=== PATIENT | female | born 1960 | race Caucasian/White ===

== ENCOUNTER 2017-09-11 15:47 | Emergency (ER) | payer BC, OTHER ==
[2017-09-11 16:02] VITALS: BMI 32.0
[2017-09-11 16:41] LABS: BILIRUBIN,URINE NEGATIVE (NEGATIVE); BLOOD/HEMOGLOBIN,URINE 3+ (NEGATIVE); GLUCOSE, URINE NEGATIVE (NEGATIVE); KETONES,URINE NEGATIVE (NEGATIVE); LEUKOCYTE ESTERASE ,URINE 1+ (NEGATIVE); NITRITES,URINE NEGATIVE (NEGATIVE); PROTEIN,URINE 1+ (NEGATIVE); UROBILINOGEN,URINE NORMAL (NORMAL)
[2017-09-11 16:45] LABS: APPEARANCE,URINE CLEAR (CLEAR); COLOR,URINE YELLOW (YELLOW)
--- NOTE | 2017-09-11 16:48 | DR.GENAD ---
HPI - PCP Primary Care Physician: Dr. Briones - Complaint/Symptoms Chief Complaint Doctors Comments: She was seen by PCP like 2 days ago and started on Cipro for possible diverticulitis. Chief Complaint:: About a week ago pt had sudden onset of severe abdomianl pain described as sharp stabbing into left lower quadrant. Pt was started on Linzess and thought problem was related to this. Since then she hasn't been able to eat or drink like normal. Pt also c/o nausea and vomiting and has had 2 very loose stools this morning. Self Treatment fo Chief Complaint: Was given Rx. for Cipro and Zofran on Tuesday with no relief - Nurses notes reviewed Nurses Notes Review: Yes - Source History Provided: Patient - Mode of Arrival Mode of Arrival: Ambulatory - Timing Onset of Chief Complaint: 09/04/17 PMH - PMH Past Medical History: Yes Past Medical History: Anxiety Past Medical History Comment: Diverticulitis. Hypothyroidism. low platelets Past Surgical History: Yes Surgical History: Hysterectomy Past Surgical History Comment: Bladder Tack with mesh. right shoulder surgery. right carpal tunnel. neck surgery. back surgery - Family History History of Family Medical Conditions: Yes Family Medical History: Diabetes Mellitus, Cancer, Coronary Artery Disease, Hypertension Family Medical History Comment: AAA -dad - Social History Does patient currently use any type of tobacco product: No Have you used tobacco products in the last 12 months: No Type of Tobacco Use: None Does any household member use tobacco: No Alcohol Use: Rarely Do you use any recreational Drugs:: No Lives With: Spouse Lives Where: Home - infectious screening In the last 2 months have you had wt loss of >10#?: NO Have you had fever, night sweats or hemotysis?: No Have you traveled outside the country in the last 6 months?: No Isolation: Standard ROS - Review of Systems Constitutional: No Symptoms Reported Eyes: No Symptoms Reported ENTM: No Symptoms Reported Respiratoy: No Symptoms Reported Cardiovascular: No Symptoms Reported Gastrointestinal/Abdominal: Abdominal Pain, Nausea Genitourinary: No Symptoms Reported Neurological: No Symptoms Reported Musculoskeletal: No Symptoms Reported Integumentary: No Symptoms Reported Hematologic/Lymphatic: No Symptoms Reported Endocrine: No Symptoms Reported Psychiatric: No Symptoms Reported All Other Systems: Reviewed and Negative PE - Vital Signs Vitals: Temperature 99.6 F Pulse Rate 87 Respiratory Rate 18 Blood Pressure 98/54 O2 Sat by Pulse Oximetry 98 - General Limitations: No Limitations General Appearance: Alert, In No Apparent Distress - Head Head Exam: Normal Inspection - Eyes Eye exam: Normal Appearance - ENT ENT Exam: Normal Exam - Neck Neck Exam: Normal Inspection, Full ROM, Trachea Midline - Chest Chest Inspection: Normal Inspection, Symmetric Chest Wall Rise - Respiratory Respiratory Exam: Normal Lung Sounds Bilat - Cardiovascular Cardiovascular Exam: Regular Rate, Normal Rhythm, Normal Heart Sounds, +S1, +S2 - Abdominal Exam Abdominal Exam: Normal Inspection, Normal Bowel Sounds, Soft, Tenderness. negative: Distention, Guarding, Rebound, Rigidity, Dimnished Bowel Sounds, Hyperactive Bowel Sounds, Hypoactive Bowel Sounds, Organomegaly, Trauma, Incision, Ascites, Mass, Bruit, Pulsatile Mass, Hernia Abdominal Tenderness: LLQ - Extremities Extremities Exam: Normal Inspection, Full ROM - Back Back Exam: Normal Inspection Course - Reevaluation 1st: Improved - Education/Counseling Education/Counseling: Patient, Family, Education, Counseling Educated On: Treatment, Diagnosis, Prognosis, Needs for Follow Up ROR - Labs Reviewed Result Diagrams: 09/11/17 16:35 09/11/17 16:35 Laboratory: WBC 9.4 X10^3/uL (3.6-10.0) 09/11/17 16:35 RBC 4.24 X10^6/uL (3.5-5.4) 09/11/17 16:35 Hgb 12.6 g/dL (12.0-16.0) 09/11/17 16:35 Hct 36.6 % (36.0-47.0) 09/11/17 16:35 MCV 86.3 fL (80.0-100.0) 09/11/17 16:35 MCH 29.7 pg (27.0-34.0) 09/11/17 16:35 MCHC 34.4 g/dL (33.0-35.0) 09/11/17 16:35 RDW 12.4 % (11.6-16.5) 09/11/17 16:35 Plt Count 149 X10^3/uL (150.0-450.0) L 09/11/17 16:35 MPV 10.7 fL (7.4-11.0) 09/11/17 16:35 Neut % (Auto) 78.1 % (42.0-75.0) H 09/11/17 16:35 Lymph % (Auto) 11.0 % (21.0-51.0) L 09/11/17 16:35 [place] % (Auto) 10.3 % (0.0-13.0) 09/11/17 16:35 Eos % (Auto) 0.2 % (0.9-2.9) L 09/11/17 16:35 Baso % (Auto) 0.4 % (0.2-1.0) 09/11/17 16:35 Neut # (Auto) 7.3 x10^3/uL (2.2-4.8) H 09/11/17 16:35 Lymph # (Auto) 1.0 X10^3/uL (1.3-2.9) L 09/11/17 16:35 [place] # (Auto) 1.0 x10^3/uL (0.3-0.8) H 09/11/17 16:35 Eos # (Auto) 0.0 x10^3/uL (0.0-0.2) 09/11/17 16:35 Baso # (Auto) 0.0 X10^3/uL (0.0-0.1) 09/11/17 16:35 Absolute Nucleated RBC 0.0 /100WBC 09/11/17 16:35 Sodium 135 mmol/L (136-145) L 09/11/17 16:35 Corrected Sodium TNP 09/11/17 16:35 Potassium 3.7 mmol/L (3.5-5.1) 09/11/17 16:35 Chloride 99 mmol/L (98-107) 09/11/17 16:35 Carbon Dioxide 28.4 mmol/L (21-32) 09/11/17 16:35 BUN 19 mg/dL (7-18) H 09/11/17 16:35 Creatinine 1.94 mg/dL (0.55-1.02) H 09/11/17 16:35 Est GFR (MDRD) Af Amer 34 (>60) L 09/11/17 16:35 Est GFR (MDRD) Non-Af 28 (>60) L 09/11/17 16:35 Glucose 92 mg/dL (65-99) 09/11/17 16:35 Calcium 9.9 mg/dL (8.5-10.1) 09/11/17 16:35 Corrected Calcium TNP 09/11/17 16:35 Total Bilirubin 0.60 mg/dL (0.2-1.0) 09/11/17 16:35 AST 67 Units/L (15-37) H 09/11/17 16:35 ALT 72 Units/L (12-78) 09/11/17 16:35 Alkaline Phosphatase 183 Units/L (46-116) H 09/11/17 16:35 Total Protein 8.2 g/dL (6.4-8.2) 09/11/17 16:35 Albumin 3.5 g/dL (3.4-5.0) 09/11/17 16:35 Globulin 4.7 g/dL (2.5-4.5) H 09/11/17 16:35 Albumin/Globulin Ratio 0.7 Ratio (1.1-2.1) L 09/11/17 16:35 Specimen Type Random urine 09/11/17 16:22 Urine Color Yellow (YELLOW) 09/11/17 16:22 Urine Appearance Clear (CLEAR) 09/11/17 16:22 Urine pH 5.0 (5.0 - 8.0) 09/11/17 16:22 Ur Specific [place] 1.015 (1.000-1.030) 09/11/17 16:22 Urine Protein 1+ (NEGATIVE) 09/11/17 16:22 Urine Glucose (UA) Negative (NEGATIVE) 09/11/17 16:22 Urine Ketones Negative (NEGATIVE) 09/11/17 16:22 Urine Occult Blood 3+ (NEGATIVE) 09/11/17 16:22 Urine Nitrite Negative (NEGATIVE) 09/11/17 16:22 Urine Bilirubin Negative (NEGATIVE) 09/11/17 16:22 Urine Urobilinogen Normal (NORMAL) 09/11/17 16:22 Ur Leukocyte Esterase 1+ (NEGATIVE) 09/11/17 16:22 Urine RBC 0-2 /HPF (NONE SEEN) 09/11/17 16:22 Urine WBC 0-2 /HPF (NONE SEEN) 09/11/17 16:22 Ur Squamous Epith Cells Few /HPF (NEGATIVE) 09/11/17 16:22 Amorphous Sediment Trace /HPF (NEGATIVE) 09/11/17 16:22 Urine Bacteria Trace /HPF (NEGATIVE) 09/11/17 16:22 Ur Culture Indicated? No/not indicated 09/11/17 16:22 - XRAY XRAY Interpreted by: Radiologist (diverticulitis without perforation at the descending colon and sigmoid junction) - Diagnosis Discharge Problem: Diverticulitis - Discharge Plan Disposition: 01 HOME, SELF-CARE Condition: Stable - Follow ups/Referrals Follow ups/Referrals: Alcides Briones [Primary Care Provider] - 3 days - Instructions Instructions: Diverticulitis
--- NOTE | 2017-09-11 16:54 | CT ---
HISTORY: Left lower quadrant abdominal pain Study: CT abdomen and pelvis without IV or oral contrast Comparison: No priors Technique: Multiple axial images of the abdomen and pelvis were obtained from the lung bases to the pubic symphy sis without the administration of IV or oral contrast. Coronal and sagittal images are also reviewed . Findings: The visualized portions of the lung bases are unremarkable. The liver, spleen, pancreas, left kidney and adrenal glands are unremarkable in their CT appearance. The gallbladder is unremarkable in its C T appearance. A 4.6 cm simple cyst is seen involving the posterior aspect of the right mid kidney reg ion. No solid mass, stone or hydronephrosis is seen involving either kidney. No significant mesenteri c lymphadenopathy is observed. No free fluid or free air is seen within the abdomen. . There is wa ll thickening and pericolonic fat reticulation in an area of diverticulosis involving the distal desc ending and proximal sigmoid colon regions. Findings have the appearance of active, on perforated dive rticulitis. No bowel obstruction is seen.. The urinary bladder is grossly unremarkable. Uterus and ov trudy are surgically absent. The bony structures are grossly intact. IMPRESSION: Active but on perforated diverticulitis at the junction of the descending and proximal sigmoid colon regions. No fluid or abscess is seen. Simple cyst of the midpole region of the right kidney dorsally. Reported By:
[2017-09-11 16:59] LABS: AMORPHOUS SEDIMENT,UR TRACE /HPF (NEGATIVE); BACTERIA,URINE TRACE /HPF (NEGATIVE); RBC,URINE 0-2 /HPF (NONE SEEN); SQUAMOUS EPITHELIAL CELL,UR FEW /HPF (NEGATIVE)
[2017-09-11 17:04] LABS: BASOPHILS % (AUTO) 0.4 % (0.2-1.0); EOSINOPHILS % (AUTO) 0.2 % (0.9-2.9); HEMATOCRIT 36.6 % (36.0-47.0); HEMOGLOBIN 12.6 g/dL (12.0-16.0); MEAN CORPUSCULAR HEMOGLOBIN 29.7 pg (27.0-34.0); MEAN CORPUSCULAR HGB CONC 34.4 g/dL (33.0-35.0); MEAN CORPUSCULAR VOLUME 86.3 fL (80.0-100.0); MEAN PLATELET VOLUME 10.7 fL (7.4-11.0); MONOCYTES % (AUTO) 10.3 % (0.0-13.0); NEUTROPHILS # (AUTO) 7.3 x10^3/uL (2.2-4.8); NEUTROPHILS % (AUTO) 78.1 % (42.0-75.0); PLATELET COUNT 149 X10^3/uL (150.0-450.0); RED BLOOD COUNT 4.24 X10^6/uL (3.5-5.4); RED CELL DISTRIBUTION WIDTH 12.4 % (11.6-16.5); WHITE BLOOD COUNT 9.4 X10^3/uL (3.6-10.0)
[2017-09-11 17:16] LABS: ALANINE AMINOTRANSFERASE 72 Units/L (12-78); ALBUMIN 3.5 g/dL (3.4-5.0); ALKALINE PHOSPHATASE 183 Units/L (46-116); ASPARTATE AMINO TRANSFERASE 67 Units/L (15-37); BLOOD UREA NITROGEN 19 mg/dL (7-18); CALCIUM 9.9 mg/dL (8.5-10.1); CARBON DIOXIDE 28.4 mmol/L (21-32); CHLORIDE 99 mmol/L (98-107); CREATININE 1.94 mg/dL (0.55-1.02); SODIUM 135 mmol/L (136-145); TOTAL PROTEIN 8.2 g/dL (6.4-8.2); eGFR BLACK RACES 34 (>60); eGFR NON BLACK RACES 28 (>60)
[2017-09-11] MEDS ORDERED: CLEOCIN 600 MG IV PREMIX 600 MG/50 ML BAG IV ONE (17:35)
[2017-09-11] MEDS ORDERED: DEMEROL INJ IVP ONE (17:36)
[2017-09-11] MEDS ORDERED: FLAGYL TAB 500 MG PO ONE (17:36)
[2017-09-11] MEDS ORDERED: PHENERGAN TAB 25 MG PO ONE (17:37)
[2017-09-11] MEDS ORDERED: CLEOCIN VIAL 600 MG ONE (17:43)
[2017-09-11] MEDS ORDERED: FLAGYL TAB 250 MG PO ONE (17:43)
[2017-09-11] MEDS ORDERED: DEMEROL INJ ONE (17:44)
[2017-09-11] MEDS ORDERED: NS 100 ML IV 100 ML IV ONE (17:44)
[2017-09-11] MEDS ORDERED: PHENERGAN INJ 25 MG ONE (17:47)
[2017-09-11 19:04] VITALS: BP 101/62
== END 2017-09-11 19:04 | disposition home or self-care (01) ==
LOC: ER 16:07
DX: K57.92 Diverticulitis of intestine, part unspecified, without perforation or abscess without bleeding (principal); N28.1 Cyst of kidney, acquired; R10.32 Left lower quadrant pain
CPT/HCPCS: 36415; 74176; 80053; 81001; 85025; 96365; 96374; 96375; 99283; A4222; J2175; J2550; S0077

== ENCOUNTER 2017-09-17 10:03 | Inpatient (IN) | payer BC, OTHER ==
[2017-09-17] MEDS: NS 1000 ML 1,000 ML IV SCH ×2 (10:39→20:13)
[2017-09-17] MEDS ORDERED: CIPRO IV 400 MG PREMIX* 400 MG/200 ML IV.SOLN. IV SCH (11:00)
[2017-09-17 11:01] LABS: BASOPHILS # (AUTO) 0.1 X10^3/uL (0.0-0.1); BASOPHILS % (AUTO) 0.6 % (0.2-1.0); EOSINOPHILS % (AUTO) 0.1 % (0.9-2.9); HEMATOCRIT 34.7 % (36.0-47.0); HEMOGLOBIN 11.7 g/dL (12.0-16.0); LYMPHOCYTES # (AUTO) 0.8 X10^3/uL (1.3-2.9); LYMPHOCYTES % (AUTO) 7.1 % (21.0-51.0); MEAN CORPUSCULAR HGB CONC 33.7 g/dL (33.0-35.0); MEAN CORPUSCULAR VOLUME 85.9 fL (80.0-100.0); MEAN PLATELET VOLUME 10.1 fL (7.4-11.0); MONOCYTES # (AUTO) 0.8 x10^3/uL (0.3-0.8); MONOCYTES % (AUTO) 6.8 % (0.0-13.0); NEUTROPHILS % (AUTO) 85.4 % (42.0-75.0); PLATELET COUNT 194 X10^3/uL (150.0-450.0); RED BLOOD COUNT 4.04 X10^6/uL (3.5-5.4); RED CELL DISTRIBUTION WIDTH 12.7 % (11.6-16.5); WHITE BLOOD COUNT 11.7 X10^3/uL (3.6-10.0)
[2017-09-17 11:07] LABS: ALBUMIN 3.3 g/dL (3.4-5.0); CALCIUM 9.4 mg/dL (8.5-10.1); CARBON DIOXIDE 29.1 mmol/L (21-32); CREATININE 1.47 mg/dL (0.55-1.02); TOTAL PROTEIN 7.4 g/dL (6.4-8.2)
[2017-09-17] MEDS: ZOFRAN INJ 4 MG VIAL IVP PRN (11:41)
[2017-09-17] MEDS: TORADOL 30 MG VIAL IVP PRN ×2 (11:41→18:50)
[2017-09-17] MEDS ORDERED: PHENERGAN INJ 25 MG IM ONE (14:26)
[2017-09-17] MEDS: FLAGYL IV PREMIX 500 MG BAG 500 MG/100 ML BAG IV SCH ×2 (14:34→20:22)
[2017-09-17 15:34] VITALS: BMI 32.0
[2017-09-17 16:23] LABS: BILIRUBIN,URINE NEGATIVE (NEGATIVE); BLOOD/HEMOGLOBIN,URINE 2+ (NEGATIVE); GLUCOSE, URINE NEGATIVE (NEGATIVE); KETONES,URINE NEGATIVE (NEGATIVE); LEUKOCYTE ESTERASE ,URINE 2+ (NEGATIVE); NITRITES,URINE NEGATIVE (NEGATIVE); PROTEIN,URINE 1+ (NEGATIVE); UROBILINOGEN,URINE NORMAL (NORMAL)
[2017-09-17 16:28] LABS: APPEARANCE,URINE CLEAR (CLEAR); COLOR,URINE YELLOW (YELLOW)
[2017-09-17 16:29] LABS: BACTERIA,URINE TRACE /HPF (NEGATIVE); SQUAMOUS EPITHELIAL CELL,UR FEW /HPF (NEGATIVE)
[2017-09-17] MEDS ORDERED: XANAX PO ONE (21:02)
[2017-09-17] MEDS: ZANAFLEX PO SCH (21:23)
[2017-09-17] MEDS: ZOSYN VIAL 3.375 GM 3.375 GM in NS 100 ML IV + SPIKE MINIBAG* 100 ML IV SCH (22:00)
[2017-09-18] MEDS: PRAVACHOL PO SCH ×2 (03:18→21:02)
[2017-09-18] MEDS: XANAX PO SCH ×4 (03:19→21:01)
[2017-09-18] MEDS: FLAGYL IV PREMIX 500 MG BAG 500 MG/100 ML BAG IV SCH ×4 (03:20→21:02)
[2017-09-18] MEDS: NS 1000 ML 1,000 ML IV SCH ×3 (03:20→20:59)
[2017-09-18] MEDS: ZOSYN VIAL 3.375 GM 3.375 GM in NS 100 ML IV + SPIKE MINIBAG* 100 ML IV SCH ×4 (03:21→21:00)
[2017-09-18] MEDS: SYNTHROID 88 mcg TAB PO SCH (05:23)
[2017-09-18 07:31] LABS: BASOPHILS % (AUTO) 0.4 % (0.2-1.0); EOSINOPHILS % (AUTO) 0.2 % (0.9-2.9); HEMATOCRIT 30.9 % (36.0-47.0); HEMOGLOBIN 10.5 g/dL (12.0-16.0); LYMPHOCYTES # (AUTO) 1.1 X10^3/uL (1.3-2.9); LYMPHOCYTES % (AUTO) 10.5 % (21.0-51.0); MEAN CORPUSCULAR HEMOGLOBIN 29.3 pg (27.0-34.0); MEAN CORPUSCULAR VOLUME 86.1 fL (80.0-100.0); MEAN PLATELET VOLUME 10.3 fL (7.4-11.0); NEUTROPHILS % (AUTO) 78.9 % (42.0-75.0); PLATELET COUNT 183 X10^3/uL (150.0-450.0); RED BLOOD COUNT 3.59 X10^6/uL (3.5-5.4); RED CELL DISTRIBUTION WIDTH 12.8 % (11.6-16.5); WHITE BLOOD COUNT 10.2 X10^3/uL (3.6-10.0)
[2017-09-18 07:50] LABS: ALANINE AMINOTRANSFERASE 23 Units/L (12-78); ALBUMIN 2.6 g/dL (3.4-5.0); ALKALINE PHOSPHATASE 112 Units/L (46-116); ASPARTATE AMINO TRANSFERASE 10 Units/L (15-37); BLOOD UREA NITROGEN 12 mg/dL (7-18); CALCIUM 8.7 mg/dL (8.5-10.1); CARBON DIOXIDE 28.6 mmol/L (21-32); CHLORIDE 107 mmol/L (98-107); COR CA(FOR HYPOALB) 9.8 mg/dL (8.5-10.1); CREATININE 1.53 mg/dL (0.55-1.02); SODIUM 143 mmol/L (136-145); TOTAL PROTEIN 6.4 g/dL (6.4-8.2); eGFR BLACK RACES 45 (>60); eGFR NON BLACK RACES 37 (>60)
[2017-09-18] MEDS ORDERED: PYRIDIUM PO ONE ×2 (09:17→13:25)
[2017-09-18] MEDS: CELEXA PO SCH (09:19)
[2017-09-18] MEDS: PYRIDIUM PO SCH ×3 (09:19→16:06)
[2017-09-18] MEDS: TYLENOL 325 MG TAB PO PRN (09:32)
[2017-09-18] MEDS: TORADOL 30 MG VIAL IVP PRN (13:46)
[2017-09-18] MEDS: ZOFRAN INJ 4 MG VIAL IVP PRN (19:18)
[2017-09-18] MEDS: ZANAFLEX PO SCH (21:01)
[2017-09-19] MEDS: FLAGYL IV PREMIX 500 MG BAG 500 MG/100 ML BAG IV SCH ×4 (02:55→21:42)
[2017-09-19] MEDS: ZOSYN VIAL 3.375 GM 3.375 GM in NS 100 ML IV + SPIKE MINIBAG* 100 ML IV SCH ×3 (03:46→21:41)
[2017-09-19] MEDS: SYNTHROID 88 mcg TAB PO SCH (05:33)
[2017-09-19] MEDS: XANAX PO SCH ×4 (05:34→21:42)
[2017-09-19] MEDS: NS 1000 ML 1,000 ML IV SCH ×4 (05:34→21:40)
[2017-09-19 06:17] LABS: ALANINE AMINOTRANSFERASE 20 Units/L (12-78); ALBUMIN 2.5 g/dL (3.4-5.0); ALKALINE PHOSPHATASE 121 Units/L (46-116); ASPARTATE AMINO TRANSFERASE 10 Units/L (15-37); BLOOD UREA NITROGEN 11 mg/dL (7-18); CALCIUM 8.6 mg/dL (8.5-10.1); CARBON DIOXIDE 26.6 mmol/L (21-32); CHLORIDE 109 mmol/L (98-107); COR CA(FOR HYPOALB) 9.8 mg/dL (8.5-10.1); CREATININE 1.39 mg/dL (0.55-1.02); SODIUM 142 mmol/L (136-145); TOTAL PROTEIN 6.2 g/dL (6.4-8.2); eGFR BLACK RACES 50 (>60); eGFR NON BLACK RACES 41 (>60)
[2017-09-19] MEDS: PYRIDIUM PO SCH ×4 (06:18→17:22)
[2017-09-19 06:25] LABS: BASOPHILS % (AUTO) 0.3 % (0.2-1.0); EOSINOPHILS % (AUTO) 0.5 % (0.9-2.9); HEMATOCRIT 29.7 % (36.0-47.0); HEMOGLOBIN 10.3 g/dL (12.0-16.0); LYMPHOCYTES # (AUTO) 1.2 X10^3/uL (1.3-2.9); LYMPHOCYTES % (AUTO) 13.8 % (21.0-51.0); MEAN CORPUSCULAR HEMOGLOBIN 29.7 pg (27.0-34.0); MEAN CORPUSCULAR HGB CONC 34.6 g/dL (33.0-35.0); MEAN CORPUSCULAR VOLUME 85.9 fL (80.0-100.0); MEAN PLATELET VOLUME 10.8 fL (7.4-11.0); MONOCYTES # (AUTO) 0.7 x10^3/uL (0.3-0.8); MONOCYTES % (AUTO) 8.5 % (0.0-13.0); NEUTROPHILS # (AUTO) 6.5 x10^3/uL (2.2-4.8); NEUTROPHILS % (AUTO) 76.9 % (42.0-75.0); PLATELET COUNT 170 X10^3/uL (150.0-450.0); RED BLOOD COUNT 3.46 X10^6/uL (3.5-5.4); RED CELL DISTRIBUTION WIDTH 12.7 % (11.6-16.5); WHITE BLOOD COUNT 8.5 X10^3/uL (3.6-10.0)
[2017-09-19] MEDS: CELEXA PO SCH (08:33)
[2017-09-19] MEDS: PEPCID 20 MG IV PREMIX* 20 MG/50 ML BAG IV SCH ×2 (11:27→21:40)
[2017-09-19] MEDS: PROTONIX INJ 40 MG VIAL IVP SCH ×2 (11:28→21:40)
--- NOTE | 2017-09-19 12:44 | DR.H&P ---
H&P - History & Physical for Day of: H&P Date: 09/17/17 - Chief Complaint Chief Complaint: abdominal pain - Allergies Allergies/Adverse Reactions: Allergies Allergy/AdvReac Type Severity Reaction Status Date / Time ciprofloxacin [From Cipro] Allergy Verified 09/17/17 13:23 codeine Allergy Verified 09/17/17 11:45 hydromorphone [From Dilaudid] Allergy Verified 09/17/17 11:45 morphine Allergy Verified 09/17/17 11:45 - History of Present Illness History of Present Illness: is a 57 year old patient of ours who is a direct admit for complaints of abdominal pain, nausea, and diarrhea. Patient describes pain as a stabbing feeling in her left lower quadrant. She reports that symptoms began one week ago. She was seen in our office one week ago and was prescribed Cipro and Linzess. Patient states she had no improvement and went to the ER on Tuesday (09/11/17). There was an abdomen and pelvis CT done revealed: Active but unperforated diverticulitis at the junction of the descending and proximal sigmoid colon regions. No fluid or abscess is seen. Simple cyst of the midpole region of the right kidney dorsally. She reports receiving a prescription for an antibiotic and pain medicine. Patient reports associated nausea. She rates her abdomen pain at an 8 on a pain scale of 0-10 with 10 being the worse pain. On arrival, vitals were 100.4, 79, 20, 99% RA, 114 /64. Labs were obrtained. Abnormal labs include: WBC 11.7, HGB 11.7, HCT 34.7, Creatinine 1.47, GFR (AA) 47, GFR (NON) 39, Glucose 111, Alkaline Phosphatase 137, Albumin 3.3, A/G ratio 0.8. Urinalysis obtained and revelaed: Protein 1+, Occult Blood 2+, Leukocyte Esterase 2+, RBC 10-20, WBC 0-2, Squamous Epith Cells Few, Bacteria Trace. We are unable to obtain a repeat abdomen/pelvis CT with contrast for comparison due to the patients renal function at this time. Patient will be given Zosyn 3.375 MG IV Q6H and Flagyl 500 MG IV Q6H for antibiotic therapy. The patient has Toradol 30 MG IVP Q6H PRN for pain. NS 1000 ML @ 125 MLS/HR IV will be given for aggressive IV hydration. We will follow up with AM labs and continue to monitor patient. - Past Medical History Past Medical History: Anxiety - Past Surgical History Surgical History: Hysterectomy, Ortho Surgery - Family History Family Medical History: Diabetes Mellitus, Cancer, Coronary Artery Disease, Hypertension - Social History Alcohol Use: Occasionally Drug Use: None - Medications Home Medications: Alprazolam [Alprazolam] 1 tab PO TID 09/17/17 [History Confirmed 09/17/17] Citalopram Hydrobromide [Celexa] 1.5 tab PO DAILY 09/17/17 [History Confirmed ] Levothyroxine Sodium [SYNTHROID 88 mcg *] 1 tab PO DAILY 09/17/17 [History Confirmed 09/17/17] Polyethylene Glycol 3350 [Miralax] 2 cap PO DAILY 09/17/17 [History Confirmed ] Pravastatin Sodium [Pravachol] 1 tab PO HS 09/17/17 [History Confirmed 09/17/17] Tizanidine HCl [Zanaflex 4 mg] 4 mg PO HS 09/17/17 [History Confirmed 09/17/17] - Review of Systems Constitutional: Fever, Weakness Eyes: No Symptoms Reported ENT: No Symptoms Reported Respiratory: No Symptoms Reported Cardiovascular: No Symptoms Reported Gastrointestinal: Nausea, Vomiting, Abdominal Pain, Diarrhea Genitourinary: No Symptoms Reported Musculoskeletal: No Symptoms Reported Skin: No Symptoms Reported Neurological: Weakness - Physical Exam Vital Signs: Temperature 97.9 F Pulse Rate [Left Brachial] 66 Respiratory Rate 18 Blood Pressure [Left Arm] 97/51 Blood Pressure [Left Arm] 105/58 Blood Pressure 101/62 O2 Sat by Pulse Oximetry 96 Oriented: Normal Eyes: Normal Ear: Normal Nose: Normal Throat: Normal Respiratory: Clear Throughout Cardiovascular: Normal : Normal Auscultation: Bowel Sounds: Increased Palpation: Normal Tenderness: LLQ, Moderate. negative: Rebound, Guarding, Rigidity Skin: Normal Musculoskeletal: Normal Psychiatric: Normal Mood Description: Calm Affect: Normal Speech Pattern: Clear - Assessment/Plan (1) Diverticulitis Status: Acute Plan: admit, iv fluids, cipro iv, flagyl iv, toradol iv prn pain, zofran iv prn nausea, continue to monitor
--- NOTE | 2017-09-19 20:01 | PCM.PROG ---
Progress Note - Progress Note for Day of Date: 09/18/17 - Subjective Subjective: WAS ADMITTED FOR ACUTE DIVERTICULITIS. TODAY, SHE IS ALERT AND ORIENTED, LYING IN BED ON MORNING ROUNDS. SHE CONTINUES WITH COMPLAINTS OF LLQ PAIN AND NAUSEA. HER VITALS THIS MORNING ARE 98.8-60-18-96%-96 /52. SHE HAS BEEN AFEBRILE THROUGHOUT THE NIGHT. LABS WERE OBTAINED. ABNORMAL LAB VALUES INCLUDE THE FOLLOWING: WBC 10.2, HGB 10.5, HCT 30.9, CREATININE 1.53 , GLUCOSE 103, AST 10, ALBUMIN 2.6. SHE CONTINUES ON IV ANTIBIOTICS, PAIN MEDICATION, AND NAUSEA MEDICATION. WE WILL CONTINUE WITH CURRENT PLAN OF CARE AND RESUME HOME MEDICATIONS TODAY. OTHERWISE, WE WILL FOLLOW UP WITH AM LABS AND CONTINUE TO MONITOR PATIENT. - Past Medical Family Social History Past Med/Fam/Surg Hx: No changes since H&P Allergies: Allergies ciprofloxacin [From Cipro] Allergy (Verified 09/17/17 13:23) codeine Allergy (Verified 09/17/17 11:45) hydromorphone [From Dilaudid] Allergy (Verified 09/17/17 11:45) morphine Allergy (Verified 09/17/17 11:45) - Review of Systems ROS: No change since H&P - Vital Signs and I&O's Vital Signs: Temperature 99.2 F Pulse Rate [Left Brachial] 74 Respiratory Rate 18 Blood Pressure [Left Arm] 112/59 Blood Pressure [Left Arm] 105/58 Blood Pressure 101/62 O2 Sat by Pulse Oximetry 98 Intake and Output: Intake & Output 09/17/17 09/18/17 09/19/17 09/20/17 11:59 11:59 11:59 11:59 Intake Total 22043 Output Total 4 Balance 2200 1940 1673 - Physical Exam Oriented: Normal Eyes: Normal Ear: Normal Nose: Normal Throat: Normal Respiratory: Normal Cardiovascular: Normal : Normal Auscultation: Bowel Sounds: Increased Palpation: Normal Tenderness: LLQ, Moderate. negative: Rebound, Guarding, Rigidity Skin: Normal Musculoskeletal: Normal Psychiatric: Normal Mood Description: Calm Affect: Normal Speech Pattern: Clear, Appropriate - Laboratory and Diagnostics Result Diagrams: 09/19/17 04:15 09/19/17 04:15 Labs: Laboratory WBC 8.5 X10^3/uL (3.6-10.0) 09/19/17 04:15 RBC 3.46 X10^6/uL (3.5-5.4) L 09/19/17 04:15 Hgb 10.3 g/dL (12.0-16.0) L 09/19/17 04:15 Hct 29.7 % (36.0-47.0) L 09/19/17 04:15 MCV 85.9 fL (80.0-100.0) 09/19/17 04:15 MCH 29.7 pg (27.0-34.0) 09/19/17 04:15 MCHC 34.6 g/dL (33.0-35.0) 09/19/17 04:15 RDW 12.7 % (11.6-16.5) 09/19/17 04:15 Plt Count 170 X10^3/uL (150.0-450.0) 09/19/17 04:15 MPV 10.8 fL (7.4-11.0) 09/19/17 04:15 Neut % (Auto) 76.9 % (42.0-75.0) H 09/19/17 04:15 Lymph % (Auto) 13.8 % (21.0-51.0) L 09/19/17 04:15 [place] % (Auto) 8.5 % (0.0-13.0) 09/19/17 04:15 Eos % (Auto) 0.5 % (0.9-2.9) L 09/19/17 04:15 Baso % (Auto) 0.3 % (0.2-1.0) 09/19/17 04:15 Neut # (Auto) 6.5 x10^3/uL (2.2-4.8) H 09/19/17 04:15 Lymph # (Auto) 1.2 X10^3/uL (1.3-2.9) L 09/19/17 04:15 [place] # (Auto) 0.7 x10^3/uL (0.3-0.8) 09/19/17 04:15 Eos # (Auto) 0.0 x10^3/uL (0.0-0.2) 09/19/17 04:15 Baso # (Auto) 0.0 X10^3/uL (0.0-0.1) 09/19/17 04:15 Absolute Nucleated RBC 0.0 /100WBC 09/19/17 04:15 Sodium 142 mmol/L (136-145) 09/19/17 04:15 Corrected Sodium TNP 09/19/17 04:15 Potassium 4.0 mmol/L (3.5-5.1) 09/19/17 04:15 Chloride 109 mmol/L (98-107) H 09/19/17 04:15 Carbon Dioxide 26.6 mmol/L (21-32) 09/19/17 04:15 BUN 11 mg/dL (7-18) 09/19/17 04:15 Creatinine 1.39 mg/dL (0.55-1.02) H 09/19/17 04:15 Est GFR (MDRD) Af Amer 50 (>60) L 09/19/17 04:15 Est GFR (MDRD) Non-Af 41 (>60) L 09/19/17 04:15 Glucose 85 mg/dL (65-99) 09/19/17 04:15 Calcium 8.6 mg/dL (8.5-10.1) 09/19/17 04:15 Corrected Calcium 9.8 mg/dL (8.5-10.1) 09/19/17 04:15 Total Bilirubin 0.30 mg/dL (0.2-1.0) 09/19/17 04:15 AST 10 Units/L (15-37) L 09/19/17 04:15 ALT 20 Units/L (12-78) 09/19/17 04:15 Alkaline Phosphatase 121 Units/L (46-116) H 09/19/17 04:15 Total Protein 6.2 g/dL (6.4-8.2) L 09/19/17 04:15 Albumin 2.5 g/dL (3.4-5.0) L 09/19/17 04:15 Globulin 3.7 g/dL (2.5-4.5) 09/19/17 04:15 Albumin/Globulin Ratio 0.7 Ratio (1.1-2.1) L 09/19/17 04:15 Specimen Type Random urine 09/17/17 15:07 Urine Color Yellow (YELLOW) 09/17/17 15:07 Urine Appearance Clear (CLEAR) 09/17/17 15:07 Urine pH 6.0 (5.0 - 8.0) 09/17/17 15:07 Ur Specific [place] 1.010 (1.000-1.030) 09/17/17 15:07 Urine Protein 1+ (NEGATIVE) 09/17/17 15:07 Urine Glucose (UA) Negative (NEGATIVE) 09/17/17 15:07 Urine Ketones Negative (NEGATIVE) 09/17/17 15:07 Urine Occult Blood 2+ (NEGATIVE) 09/17/17 15:07 Urine Nitrite Negative (NEGATIVE) 09/17/17 15:07 Urine Bilirubin Negative (NEGATIVE) 09/17/17 15:07 Urine Urobilinogen Normal (NORMAL) 09/17/17 15:07 Ur Leukocyte Esterase 2+ (NEGATIVE) 09/17/17 15:07 Urine RBC 10-20 /HPF (NONE SEEN) 09/17/17 15:07 Urine WBC 0-2 /HPF (NONE SEEN) 09/17/17 15:07 Ur Squamous Epith Cells Few /HPF (NEGATIVE) 09/17/17 15:07 Urine Bacteria Trace /HPF (NEGATIVE) 09/17/17 15:07 Ur Culture Indicated? No/not indicated 09/17/17 15:07 - Plan (1) Diverticulitis Status: Acute Plan: admit, iv fluids, cipro iv, flagyl iv, toradol iv prn pain, zofran iv prn nausea, continue to monitor
[2017-09-19] MEDS: ZANAFLEX PO SCH (21:43)
[2017-09-19] MEDS: PRAVACHOL PO SCH (21:43)
--- NOTE | 2017-09-19 21:43 | PCM.PROG ---
Progress Note - Progress Note for Day of Date: 09/19/17 - Subjective Subjective: WAS ADMITTED FOR ACUTE DIVERTICULITIS. TODAY, SHE IS ALERT AND ORIENTED, LYING IN BED ON MORNING ROUNDS. SHE CONTINUES WITH COMPLAINTS ABDOMINAL PAIN AND NAUSEA. SHE REPORTS THAT PAIN IS DIFFUSE TODAY. HER VITALS THIS MORNING ARE 97.9-66-18-96%-97/51. SHE HAS REMAINED AFEBRILE THROUGHOUT THE NIGHT. LABS WERE OBTAINED. ABNORMAL LAB VALUES INCLUDE THE FOLLOWING: WBC 10.2, HGB 10.5, HCT 30.9, CREATININE 1.53, GLUCOSE 103, AST 10, ALBUMIN 2.6. SHE CONTINUES ON IV ANTIBIOTICS, PAIN MEDICATION, AND NAUSEA MEDICATION. TODAY, WE WILL START PEPCID AND PROTONIX IV BID. OTHERWISE, WE WILL CONTINUE WITH CURRENT PLAN OF CARE. WE WILL FOLLOW UP WITH AM LABS AND CONTINUE TO MONITOR PATIENT. - Past Medical Family Social History Past Med/Fam/Surg Hx: No changes since H&P Allergies: Allergies ciprofloxacin [From Cipro] Allergy (Verified 09/17/17 13:23) codeine Allergy (Verified 09/17/17 11:45) hydromorphone [From Dilaudid] Allergy (Verified 09/17/17 11:45) morphine Allergy (Verified 09/17/17 11:45) - Review of Systems ROS: No change since H&P - Vital Signs and I&O's Vital Signs: Temperature 99.2 F Pulse Rate [Left Brachial] 74 Respiratory Rate 18 Blood Pressure [Left Arm] 112/59 Blood Pressure [Left Arm] 105/58 Blood Pressure 101/62 O2 Sat by Pulse Oximetry 98 Intake and Output: Intake & Output 09/17/17 09/18/17 09/19/17 09/20/17 11:59 11:59 11:59 11:59 Intake Total 22043 Output Total 4 Balance 2200 1940 1672 - Physical Exam Oriented: Normal Eyes: Normal Ear: Normal Nose: Normal Throat: Normal Respiratory: Normal Cardiovascular: Normal : Normal Auscultation: Bowel Sounds: Increased Palpation: Normal Tenderness: Diffuse, Moderate. negative: Rebound, Guarding, Rigidity Skin: Normal Musculoskeletal: Normal Psychiatric: Normal Mood Description: Calm Affect: Normal Speech Pattern: Clear, Appropriate - Laboratory and Diagnostics Result Diagrams: 09/19/17 04:15 09/19/17 04:15 Labs: Laboratory WBC 8.5 X10^3/uL (3.6-10.0) 09/19/17 04:15 RBC 3.46 X10^6/uL (3.5-5.4) L 09/19/17 04:15 Hgb 10.3 g/dL (12.0-16.0) L 09/19/17 04:15 Hct 29.7 % (36.0-47.0) L 09/19/17 04:15 MCV 85.9 fL (80.0-100.0) 09/19/17 04:15 MCH 29.7 pg (27.0-34.0) 09/19/17 04:15 MCHC 34.6 g/dL (33.0-35.0) 09/19/17 04:15 RDW 12.7 % (11.6-16.5) 09/19/17 04:15 Plt Count 170 X10^3/uL (150.0-450.0) 09/19/17 04:15 MPV 10.8 fL (7.4-11.0) 09/19/17 04:15 Neut % (Auto) 76.9 % (42.0-75.0) H 09/19/17 04:15 Lymph % (Auto) 13.8 % (21.0-51.0) L 09/19/17 04:15 [place] % (Auto) 8.5 % (0.0-13.0) 09/19/17 04:15 Eos % (Auto) 0.5 % (0.9-2.9) L 09/19/17 04:15 Baso % (Auto) 0.3 % (0.2-1.0) 09/19/17 04:15 Neut # (Auto) 6.5 x10^3/uL (2.2-4.8) H 09/19/17 04:15 Lymph # (Auto) 1.2 X10^3/uL (1.3-2.9) L 09/19/17 04:15 [place] # (Auto) 0.7 x10^3/uL (0.3-0.8) 09/19/17 04:15 Eos # (Auto) 0.0 x10^3/uL (0.0-0.2) 09/19/17 04:15 Baso # (Auto) 0.0 X10^3/uL (0.0-0.1) 09/19/17 04:15 Absolute Nucleated RBC 0.0 /100WBC 09/19/17 04:15 Sodium 142 mmol/L (136-145) 09/19/17 04:15 Corrected Sodium TNP 09/19/17 04:15 Potassium 4.0 mmol/L (3.5-5.1) 09/19/17 04:15 Chloride 109 mmol/L (98-107) H 09/19/17 04:15 Carbon Dioxide 26.6 mmol/L (21-32) 09/19/17 04:15 BUN 11 mg/dL (7-18) 09/19/17 04:15 Creatinine 1.39 mg/dL (0.55-1.02) H 09/19/17 04:15 Est GFR (MDRD) Af Amer 50 (>60) L 09/19/17 04:15 Est GFR (MDRD) Non-Af 41 (>60) L 09/19/17 04:15 Glucose 85 mg/dL (65-99) 09/19/17 04:15 Calcium 8.6 mg/dL (8.5-10.1) 09/19/17 04:15 Corrected Calcium 9.8 mg/dL (8.5-10.1) 09/19/17 04:15 Total Bilirubin 0.30 mg/dL (0.2-1.0) 09/19/17 04:15 AST 10 Units/L (15-37) L 09/19/17 04:15 ALT 20 Units/L (12-78) 09/19/17 04:15 Alkaline Phosphatase 121 Units/L (46-116) H 09/19/17 04:15 Total Protein 6.2 g/dL (6.4-8.2) L 09/19/17 04:15 Albumin 2.5 g/dL (3.4-5.0) L 09/19/17 04:15 Globulin 3.7 g/dL (2.5-4.5) 09/19/17 04:15 Albumin/Globulin Ratio 0.7 Ratio (1.1-2.1) L 09/19/17 04:15 Specimen Type Random urine 09/17/17 15:07 Urine Color Yellow (YELLOW) 09/17/17 15:07 Urine Appearance Clear (CLEAR) 09/17/17 15:07 Urine pH 6.0 (5.0 - 8.0) 09/17/17 15:07 Ur Specific [place] 1.010 (1.000-1.030) 09/17/17 15:07 Urine Protein 1+ (NEGATIVE) 09/17/17 15:07 Urine Glucose (UA) Negative (NEGATIVE) 09/17/17 15:07 Urine Ketones Negative (NEGATIVE) 09/17/17 15:07 Urine Occult Blood 2+ (NEGATIVE) 09/17/17 15:07 Urine Nitrite Negative (NEGATIVE) 09/17/17 15:07 Urine Bilirubin Negative (NEGATIVE) 09/17/17 15:07 Urine Urobilinogen Normal (NORMAL) 09/17/17 15:07 Ur Leukocyte Esterase 2+ (NEGATIVE) 09/17/17 15:07 Urine RBC 10-20 /HPF (NONE SEEN) 09/17/17 15:07 Urine WBC 0-2 /HPF (NONE SEEN) 09/17/17 15:07 Ur Squamous Epith Cells Few /HPF (NEGATIVE) 09/17/17 15:07 Urine Bacteria Trace /HPF (NEGATIVE) 09/17/17 15:07 Ur Culture Indicated? No/not indicated 09/17/17 15:07 - Plan (1) Diverticulitis Status: Acute Plan: admit, iv fluids, cipro iv, flagyl iv, toradol iv prn pain, zofran iv prn nausea, pepcid iv bid, protonix iv bid, continue to monitor
[2017-09-20] MEDS: FLAGYL IV PREMIX 500 MG BAG 500 MG/100 ML BAG IV SCH ×4 (03:23→20:01)
[2017-09-20] MEDS: SYNTHROID 88 mcg TAB PO SCH (05:25)
[2017-09-20] MEDS: ZOSYN VIAL 3.375 GM 3.375 GM in NS 100 ML IV + SPIKE MINIBAG* 100 ML IV SCH ×3 (05:25→21:43)
[2017-09-20] MEDS: XANAX PO SCH ×4 (05:28→21:44)
[2017-09-20] MEDS: NS 1000 ML 1,000 ML IV SCH ×2 (05:28→08:37)
[2017-09-20 06:02] LABS: ALANINE AMINOTRANSFERASE 16 Units/L (12-78); ALBUMIN 2.4 g/dL (3.4-5.0); ALKALINE PHOSPHATASE 109 Units/L (46-116); ASPARTATE AMINO TRANSFERASE 10 Units/L (15-37); BLOOD UREA NITROGEN 11 mg/dL (7-18); CALCIUM 8.5 mg/dL (8.5-10.1); CARBON DIOXIDE 26.8 mmol/L (21-32); CHLORIDE 109 mmol/L (98-107); COR CA(FOR HYPOALB) 9.8 mg/dL (8.5-10.1); SODIUM 143 mmol/L (136-145); TOTAL PROTEIN 6.1 g/dL (6.4-8.2); eGFR BLACK RACES 59 (>60); eGFR NON BLACK RACES 49 (>60)
[2017-09-20] MEDS: PYRIDIUM PO SCH ×3 (06:11→16:44)
[2017-09-20 06:18] LABS: BASOPHILS % (AUTO) 0.6 % (0.2-1.0); EOSINOPHILS # (AUTO) 0.1 x10^3/uL (0.0-0.2); EOSINOPHILS % (AUTO) 0.9 % (0.9-2.9); HEMATOCRIT 28.7 % (36.0-47.0); HEMOGLOBIN 9.7 g/dL (12.0-16.0); LYMPHOCYTES # (AUTO) 1.3 X10^3/uL (1.3-2.9); LYMPHOCYTES % (AUTO) 18.8 % (21.0-51.0); MEAN CORPUSCULAR HGB CONC 33.9 g/dL (33.0-35.0); MEAN CORPUSCULAR VOLUME 85.4 fL (80.0-100.0); MEAN PLATELET VOLUME 10.7 fL (7.4-11.0); MONOCYTES # (AUTO) 0.6 x10^3/uL (0.3-0.8); MONOCYTES % (AUTO) 8.7 % (0.0-13.0); NEUTROPHILS # (AUTO) 4.9 x10^3/uL (2.2-4.8); PLATELET COUNT 184 X10^3/uL (150.0-450.0); RED BLOOD COUNT 3.37 X10^6/uL (3.5-5.4); RED CELL DISTRIBUTION WIDTH 12.6 % (11.6-16.5); WHITE BLOOD COUNT 6.9 X10^3/uL (3.6-10.0)
[2017-09-20] MEDS: PEPCID 20 MG IV PREMIX* 20 MG/50 ML BAG IV SCH ×2 (08:36→20:00)
[2017-09-20] MEDS: PROTONIX INJ 40 MG VIAL IVP SCH ×2 (08:36→20:00)
[2017-09-20] MEDS: CELEXA PO SCH (08:37)
[2017-09-20] MEDS ORDERED: ZOFRAN TAB 4 MG PO PRN (10:44)
[2017-09-20] MEDS: TYLENOL 325 MG TAB PO PRN (10:51)
[2017-09-20] MEDS: D5 1/2 NS 1000 ML 1,000 ML IV SCH ×2 (13:15→21:52)
[2017-09-20] MEDS ORDERED: NS 100 ML IV 100 ML IV ONE (18:21)
--- NOTE | 2017-09-20 18:50 | PCM.PROG ---
Progress Note - Progress Note for Day of Date: 09/20/17 - Subjective Subjective: WAS ADMITTED FOR ACUTE DIVERTICULITIS. TODAY, SHE IS ALERT AND ORIENTED, LYING IN BED ON MORNING ROUNDS. SHE CONTINUES WITH COMPLAINTS OF DIFFUSE ABDOMINAL PAIN AND NAUSEA. HER VITALS THIS MORNING ARE 98.1-57-20-93%-112/56. SHE HAS REMAINED AFEBRILE THROUGHOUT THE NIGHT. LABS WERE OBTAINED. ABNORMAL LAB VALUES INCLUDE THE FOLLOWING: RBC 3.37, HGB 9.7, HCT 28.7, CHLORIDE 109, CREATININE 1.20, AST 10, TOTAL PROTEIN 6.1, ALBUMIN 2.4. SHE CONTINUES ON IV ANTIBIOTICS, PAIN MEDICATION, AND NAUSEA MEDICATION. TODAY, WE WILL OBTAIN AN ABDOMEN/PELVIS CT WITH CONTRAST. OTHERWISE, WE WILL CONTINUE WITH CURRENT PLAN OF CARE. WE WILL FOLLOW UP WITH AM LABS AND CONTINUE TO MONITOR PATIENT. - Past Medical Family Social History Past Med/Fam/Surg Hx: No changes since H&P Allergies: Allergies ciprofloxacin [From Cipro] Allergy (Verified 09/17/17 13:23) codeine Allergy (Verified 09/17/17 11:45) hydromorphone [From Dilaudid] Allergy (Verified 09/17/17 11:45) morphine Allergy (Verified 09/17/17 11:45) - Review of Systems ROS: No change since H&P - Vital Signs and I&O's Vital Signs: Temperature 97.5 F Pulse Rate [Right Brachial] 55 Pulse Rate [Left Brachial] 57 Respiratory Rate 18 Blood Pressure [Right Arm] 127/59 Blood Pressure [Left Arm] 112/56 Blood Pressure [Left Arm] 105/58 Blood Pressure 101/62 O2 Sat by Pulse Oximetry 97 Intake and Output: Intake & Output 09/18/17 09/19/17 09/20/17 09/21/17 11:59 11:59 11:59 11:59 Intake Total 220 1941 2653 0 Output Total 4 Balance 2200 1941 2653 0 - Physical Exam Oriented: Normal Eyes: Normal Ear: Normal Nose: Normal Throat: Normal Respiratory: Normal Cardiovascular: Normal : Normal Auscultation: Bowel Sounds: Increased Palpation: Normal Tenderness: Diffuse, Moderate. negative: Rebound, Guarding, Rigidity Skin: Normal Musculoskeletal: Normal Psychiatric: Normal Mood Description: Calm Affect: Normal Speech Pattern: Clear, Appropriate - Laboratory and Diagnostics Result Diagrams: 09/20/17 04:15 09/20/17 04:15 Labs: Laboratory WBC 6.9 X10^3/uL (3.6-10.0) 09/20/17 04:15 RBC 3.37 X10^6/uL (3.5-5.4) L 09/20/17 04:15 Hgb 9.7 g/dL (12.0-16.0) L 09/20/17 04:15 Hct 28.7 % (36.0-47.0) L 09/20/17 04:15 MCV 85.4 fL (80.0-100.0) 09/20/17 04:15 MCH 29.0 pg (27.0-34.0) 09/20/17 04:15 MCHC 33.9 g/dL (33.0-35.0) 09/20/17 04:15 RDW 12.6 % (11.6-16.5) 09/20/17 04:15 Plt Count 184 X10^3/uL (150.0-450.0) 09/20/17 04:15 MPV 10.7 fL (7.4-11.0) 09/20/17 04:15 Neut % (Auto) 71.0 % (42.0-75.0) 09/20/17 04:15 Lymph % (Auto) 18.8 % (21.0-51.0) L 09/20/17 04:15 [place] % (Auto) 8.7 % (0.0-13.0) 09/20/17 04:15 Eos % (Auto) 0.9 % (0.9-2.9) 09/20/17 04:15 Baso % (Auto) 0.6 % (0.2-1.0) 09/20/17 04:15 Neut # (Auto) 4.9 x10^3/uL (2.2-4.8) H 09/20/17 04:15 Lymph # (Auto) 1.3 X10^3/uL (1.3-2.9) 09/20/17 04:15 [place] # (Auto) 0.6 x10^3/uL (0.3-0.8) 09/20/17 04:15 Eos # (Auto) 0.1 x10^3/uL (0.0-0.2) 09/20/17 04:15 Baso # (Auto) 0.0 X10^3/uL (0.0-0.1) 09/20/17 04:15 Absolute Nucleated RBC 0.0 /100WBC 09/20/17 04:15 Sodium 143 mmol/L (136-145) 09/20/17 04:15 Corrected Sodium TNP 09/20/17 04:15 Potassium 3.8 mmol/L (3.5-5.1) 09/20/17 04:15 Chloride 109 mmol/L (98-107) H 09/20/17 04:15 Carbon Dioxide 26.8 mmol/L (21-32) 09/20/17 04:15 BUN 11 mg/dL (7-18) 09/20/17 04:15 Creatinine 1.20 mg/dL (0.55-1.02) H 09/20/17 04:15 Est GFR (MDRD) Af Amer 59 (>60) 09/20/17 04:15 Est GFR (MDRD) Non-Af 49 (>60) L 09/20/17 04:15 Glucose 72 mg/dL (65-99) 09/20/17 04:15 POC Glucose (mg/dL) 61 mg/dL (65-99) L 09/20/17 11:20 Calcium 8.5 mg/dL (8.5-10.1) 09/20/17 04:15 Corrected Calcium 9.8 mg/dL (8.5-10.1) 09/20/17 04:15 Total Bilirubin 0.30 mg/dL (0.2-1.0) 09/20/17 04:15 AST 10 Units/L (15-37) L 09/20/17 04:15 ALT 16 Units/L (12-78) 09/20/17 04:15 Alkaline Phosphatase 109 Units/L (46-116) 09/20/17 04:15 Total Protein 6.1 g/dL (6.4-8.2) L 09/20/17 04:15 Albumin 2.4 g/dL (3.4-5.0) L 09/20/17 04:15 Globulin 3.7 g/dL (2.5-4.5) 09/20/17 04:15 Albumin/Globulin Ratio 0.6 Ratio (1.1-2.1) L 09/20/17 04:15 Specimen Type Random urine 09/17/17 15:07 Urine Color Yellow (YELLOW) 09/17/17 15:07 Urine Appearance Clear (CLEAR) 09/17/17 15:07 Urine pH 6.0 (5.0 - 8.0) 09/17/17 15:07 Ur Specific [place] 1.010 (1.000-1.030) 09/17/17 15:07 Urine Protein 1+ (NEGATIVE) 09/17/17 15:07 Urine Glucose (UA) Negative (NEGATIVE) 09/17/17 15:07 Urine Ketones Negative (NEGATIVE) 09/17/17 15:07 Urine Occult Blood 2+ (NEGATIVE) 09/17/17 15:07 Urine Nitrite Negative (NEGATIVE) 09/17/17 15:07 Urine Bilirubin Negative (NEGATIVE) 09/17/17 15:07 Urine Urobilinogen Normal (NORMAL) 09/17/17 15:07 Ur Leukocyte Esterase 2+ (NEGATIVE) 09/17/17 15:07 Urine RBC 10-20 /HPF (NONE SEEN) 09/17/17 15:07 Urine WBC 0-2 /HPF (NONE SEEN) 09/17/17 15:07 Ur Squamous Epith Cells Few /HPF (NEGATIVE) 09/17/17 15:07 Urine Bacteria Trace /HPF (NEGATIVE) 09/17/17 15:07 Ur Culture Indicated? No/not indicated 09/17/17 15:07 - Plan (1) Diverticulitis Status: Acute Plan: OBTAIN ABD/PELVIS CT WITH CONTRAST, iv fluids, cipro iv, flagyl iv, toradol iv prn pain, zofran iv prn nausea, pepcid iv bid, protonix iv bid, continue to monitor
--- NOTE | 2017-09-20 20:11 | CT ---
HISTORY: Left lower quadrant pain/diverticulitis. Study: CT abdomen and pelvis with contrast Comparison: CT abdomen/pelvis dated September 11, 2017. Technique: Multiple axial images of the abdomen and pelvis were obtained from the lung bases to the pubic symphy sis after the administration of IV contrast. Dose reduction techniques including Automated Exposure Control (AEC) and adjustment of mA and kV were utilized. Findings: The visualized portions of the lung bases are unremarkable. Small hiatal hernia. Simple appearing cys t is again seen within the hepatic dome. The liver is otherwise unremarkable. Stable appearance of a right renal cyst. The right kidney is otherwise unremarkable. The spleen, pancreas, left kidney, and adrenal glands are unremarkable in their CT appearance. The gallbladder is unremarkable in its CT antonette earance. Soft tissue stranding about multiple sigmoidal diverticulum with associated mucosal thicken ing consistent with diverticulitis. Small amount of associated free fluid. No free air to suggest per foration or focal fluid collection to suggest abscess formation. Remaining large and small bowel appe ar normal. The visualized appendix appears normal. The uterus and ovaries appear surgically absent. T he urinary bladder is grossly unremarkable. Postsurgical changes of the spine. The osseous structures are otherwise intact. IMPRESSION: Constellation of findings consistent with sigmoidal diverticulitis. No free air to sugge st perforation or focal fluid collection to suggest abscess formation. No obvious neoplasm. Recommend direct visualization after patient has recovered from current symptoms to exclude underlying neoplas m. Reported By:
[2017-09-20] MEDS: PRAVACHOL PO SCH (21:44)
[2017-09-20] MEDS: ZANAFLEX PO SCH (21:44)
[2017-09-21] MEDS: FLAGYL IV PREMIX 500 MG BAG 500 MG/100 ML BAG IV SCH ×4 (03:23→20:00)
[2017-09-21] MEDS: ZOSYN VIAL 3.375 GM 3.375 GM in NS 100 ML IV + SPIKE MINIBAG* 100 ML IV SCH ×3 (05:14→21:32)
[2017-09-21] MEDS: SYNTHROID 88 mcg TAB PO SCH (05:14)
[2017-09-21 05:43] LABS: BASOPHILS % (AUTO) 0.7 % (0.2-1.0); EOSINOPHILS # (AUTO) 0.1 x10^3/uL (0.0-0.2); EOSINOPHILS % (AUTO) 1.5 % (0.9-2.9); HEMATOCRIT 30.9 % (36.0-47.0); HEMOGLOBIN 10.6 g/dL (12.0-16.0); LYMPHOCYTES # (AUTO) 1.1 X10^3/uL (1.3-2.9); LYMPHOCYTES % (AUTO) 18.3 % (21.0-51.0); MEAN CORPUSCULAR HEMOGLOBIN 28.8 pg (27.0-34.0); MEAN CORPUSCULAR HGB CONC 34.3 g/dL (33.0-35.0); MEAN CORPUSCULAR VOLUME 84.1 fL (80.0-100.0); MEAN PLATELET VOLUME 10.8 fL (7.4-11.0); MONOCYTES # (AUTO) 0.5 x10^3/uL (0.3-0.8); MONOCYTES % (AUTO) 8.9 % (0.0-13.0); NEUTROPHILS # (AUTO) 4.1 x10^3/uL (2.2-4.8); NEUTROPHILS % (AUTO) 70.6 % (42.0-75.0); PLATELET COUNT 199 X10^3/uL (150.0-450.0); RED BLOOD COUNT 3.67 X10^6/uL (3.5-5.4); RED CELL DISTRIBUTION WIDTH 12.6 % (11.6-16.5); WHITE BLOOD COUNT 5.8 X10^3/uL (3.6-10.0)
[2017-09-21 05:44] LABS: ALANINE AMINOTRANSFERASE 15 Units/L (12-78); ALBUMIN 2.5 g/dL (3.4-5.0); ALKALINE PHOSPHATASE 107 Units/L (46-116); ASPARTATE AMINO TRANSFERASE 10 Units/L (15-37); BLOOD UREA NITROGEN 7 mg/dL (7-18); CALCIUM 8.6 mg/dL (8.5-10.1); CARBON DIOXIDE 28.1 mmol/L (21-32); CHLORIDE 108 mmol/L (98-107); COR CA(FOR HYPOALB) 9.8 mg/dL (8.5-10.1); SODIUM 144 mmol/L (136-145); TOTAL PROTEIN 6.3 g/dL (6.4-8.2); eGFR BLACK RACES > 60 (>60); eGFR NON BLACK RACES 54 (>60)
[2017-09-21] MEDS ORDERED: K-LYTE EFFERVESCENT PO PRN (06:31)
[2017-09-21] MEDS ORDERED: POTASSIUM CHLORIDE LIQ 20 MEQ UDC PO PRN (06:31)
[2017-09-21] MEDS ORDERED: MAGNESIUM SULFATE 1 GM/100 mL PREMIX 1 GM/100 ML BAG IV PRN (06:31)
[2017-09-21] MEDS ORDERED: K-RIDER 10 MEQ/NS 100 ML 10 MEQ/100 ML BAG IV PRN (06:31)
[2017-09-21] MEDS ORDERED: POTASSIUM CHL 60 MEQ/NS 0.45% 500 ML IV PRN (06:31)
[2017-09-21] MEDS ORDERED: POTASSIUM CHL 40 MEQ/NS 0.45% 500 ML IV PRN (06:31)
[2017-09-21] MEDS: D5 1/2 NS 1000 ML 1,000 ML IV SCH ×3 (06:33→19:59)
[2017-09-21] MEDS: PEPCID 20 MG IV PREMIX* 20 MG/50 ML BAG IV SCH ×2 (08:14→20:03)
[2017-09-21] MEDS: CELEXA PO SCH (08:15)
[2017-09-21] MEDS: PYRIDIUM PO SCH ×3 (08:15→16:20)
[2017-09-21] MEDS: PROTONIX INJ 40 MG VIAL IVP SCH ×2 (08:16→20:03)
[2017-09-21] MEDS: ZOFRAN INJ 4 MG VIAL IVP PRN ×2 (10:58→20:00)
[2017-09-21] MEDS: MIRALAX POWDER (1 DOSE 17GM) PO SCH (12:21)
[2017-09-21] MEDS: MILK OF MAGNESIA PO SCH ×3 (12:21→20:03)
[2017-09-21] MEDS: COLACE CAP 100 MG PO SCH ×2 (12:22→20:02)
[2017-09-21] MEDS: XANAX PO PRN (16:21)
[2017-09-21] MEDS: PRAVACHOL PO SCH (20:04)
--- NOTE | 2017-09-21 21:30 | PCM.PROG ---
Progress Note - Subjective Subjective: WAS ADMITTED FOR ACUTE DIVERTICULITIS. TODAY, SHE IS ALERT AND ORIENTED, LYING IN BED ON MORNING ROUNDS. SHE CONTINUES WITH COMPLAINTS OF DIFFUSE ABDOMINAL PAIN AND NAUSEA. HER VITALS THIS MORNING ARE 98.1-57-20-93%-112/56. SHE HAS REMAINED AFEBRILE THROUGHOUT THE NIGHT. LABS WERE OBTAINED. ABNORMAL LAB VALUES INCLUDE THE FOLLOWING: RBC 3.37, HGB 9.7, HCT 28.7, CHLORIDE 109, CREATININE 1.20, AST 10, TOTAL PROTEIN 6.1, ALBUMIN 2.4. SHE CONTINUES ON IV ANTIBIOTICS, PAIN MEDICATION, AND NAUSEA MEDICATION. TODAY, WE WILL OBTAIN AN ABDOMEN/PELVIS CT WITH CONTRAST. OTHERWISE, WE WILL CONTINUE WITH CURRENT PLAN OF CARE. WE WILL FOLLOW UP WITH AM LABS AND CONTINUE TO MONITOR PATIENT. - Past Medical Family Social History Past Med/Fam/Surg Hx: No changes since H&P Allergies: Allergies ciprofloxacin [From Cipro] Allergy (Verified 09/17/17 13:23) codeine Allergy (Verified 09/17/17 11:45) hydromorphone [From Dilaudid] Allergy (Verified 09/17/17 11:45) morphine Allergy (Verified 09/17/17 11:45) - Review of Systems ROS: No change since H&P - Vital Signs and I&O's Vital Signs: Temperature 97.9 F Pulse Rate [Right Brachial] 58 Pulse Rate [Left Brachial] 70 Respiratory Rate 18 Blood Pressure [Right Arm] 127/59 Blood Pressure [Left Arm] 101/61 Blood Pressure [Left Arm] 105/58 Blood Pressure 101/62 O2 Sat by Pulse Oximetry 95 Intake and Output: Intake & Output 09/19/17 09/20/17 09/21/17 09/22/17 11:59 11:59 11:59 11:59 Intake Total 1 2653 2514 1120 Balance 1941 2653 2514 1120 - Physical Exam Oriented: Normal Eyes: Normal Ear: Normal Nose: Normal Throat: Normal Respiratory: Normal Cardiovascular: Normal : Normal Auscultation: Bowel Sounds: Increased Palpation: Normal Tenderness: Diffuse, Moderate. negative: Rebound, Guarding, Rigidity Skin: Normal Musculoskeletal: Normal Psychiatric: Normal Mood Description: Calm Affect: Normal Speech Pattern: Clear, Appropriate - Laboratory and Diagnostics Result Diagrams: 09/21/17 04:10 09/21/17 04:10 Labs: Laboratory WBC 5.8 X10^3/uL (3.6-10.0) 09/21/17 04:10 RBC 3.67 X10^6/uL (3.5-5.4) 09/21/17 04:10 Hgb 10.6 g/dL (12.0-16.0) L 09/21/17 04:10 Hct 30.9 % (36.0-47.0) L 09/21/17 04:10 MCV 84.1 fL (80.0-100.0) 09/21/17 04:10 MCH 28.8 pg (27.0-34.0) 09/21/17 04:10 MCHC 34.3 g/dL (33.0-35.0) 09/21/17 04:10 RDW 12.6 % (11.6-16.5) 09/21/17 04:10 Plt Count 199 X10^3/uL (150.0-450.0) 09/21/17 04:10 MPV 10.8 fL (7.4-11.0) 09/21/17 04:10 Neut % (Auto) 70.6 % (42.0-75.0) 09/21/17 04:10 Lymph % (Auto) 18.3 % (21.0-51.0) L 09/21/17 04:10 [place] % (Auto) 8.9 % (0.0-13.0) 09/21/17 04:10 Eos % (Auto) 1.5 % (0.9-2.9) 09/21/17 04:10 Baso % (Auto) 0.7 % (0.2-1.0) 09/21/17 04:10 Neut # (Auto) 4.1 x10^3/uL (2.2-4.8) 09/21/17 04:10 Lymph # (Auto) 1.1 X10^3/uL (1.3-2.9) L 09/21/17 04:10 [place] # (Auto) 0.5 x10^3/uL (0.3-0.8) 09/21/17 04:10 Eos # (Auto) 0.1 x10^3/uL (0.0-0.2) 09/21/17 04:10 Baso # (Auto) 0.0 X10^3/uL (0.0-0.1) 09/21/17 04:10 Absolute Nucleated RBC 0.1 /100WBC 09/21/17 04:10 Sodium 144 mmol/L (136-145) 09/21/17 04:10 Corrected Sodium TNP 09/21/17 04:10 Potassium 3.3 mmol/L (3.5-5.1) L 09/21/17 04:10 Chloride 108 mmol/L (98-107) H 09/21/17 04:10 Carbon Dioxide 28.1 mmol/L (21-32) 09/21/17 04:10 BUN 7 mg/dL (7-18) 09/21/17 04:10 Creatinine 1.10 mg/dL (0.55-1.02) H 09/21/17 04:10 Est GFR (MDRD) Af Amer > 60 (>60) 09/21/17 04:10 Est GFR (MDRD) Non-Af 54 (>60) L 09/21/17 04:10 Glucose 101 mg/dL (65-99) H 09/21/17 04:10 POC Glucose (mg/dL) 61 mg/dL (65-99) L 09/20/17 11:20 Calcium 8.6 mg/dL (8.5-10.1) 09/21/17 04:10 Corrected Calcium 9.8 mg/dL (8.5-10.1) 09/21/17 04:10 Magnesium 1.7 mg/dL (1.7-2.9) 09/21/17 04:10 Total Bilirubin 0.30 mg/dL (0.2-1.0) 09/21/17 04:10 AST 10 Units/L (15-37) L 09/21/17 04:10 ALT 15 Units/L (12-78) 09/21/17 04:10 Alkaline Phosphatase 107 Units/L (46-116) 09/21/17 04:10 Total Protein 6.3 g/dL (6.4-8.2) L 09/21/17 04:10 Albumin 2.5 g/dL (3.4-5.0) L 09/21/17 04:10 Globulin 3.8 g/dL (2.5-4.5) 09/21/17 04:10 Albumin/Globulin Ratio 0.7 Ratio (1.1-2.1) L 09/21/17 04:10 Specimen Type Random urine 09/17/17 15:07 Urine Color Yellow (YELLOW) 09/17/17 15:07 Urine Appearance Clear (CLEAR) 09/17/17 15:07 Urine pH 6.0 (5.0 - 8.0) 09/17/17 15:07 Ur Specific [place] 1.010 (1.000-1.030) 09/17/17 15:07 Urine Protein 1+ (NEGATIVE) 09/17/17 15:07 Urine Glucose (UA) Negative (NEGATIVE) 09/17/17 15:07 Urine Ketones Negative (NEGATIVE) 09/17/17 15:07 Urine Occult Blood 2+ (NEGATIVE) 09/17/17 15:07 Urine Nitrite Negative (NEGATIVE) 09/17/17 15:07 Urine Bilirubin Negative (NEGATIVE) 09/17/17 15:07 Urine Urobilinogen Normal (NORMAL) 09/17/17 15:07 Ur Leukocyte Esterase 2+ (NEGATIVE) 09/17/17 15:07 Urine RBC 10-20 /HPF (NONE SEEN) 09/17/17 15:07 Urine WBC 0-2 /HPF (NONE SEEN) 09/17/17 15:07 Ur Squamous Epith Cells Few /HPF (NEGATIVE) 09/17/17 15:07 Urine Bacteria Trace /HPF (NEGATIVE) 09/17/17 15:07 Ur Culture Indicated? No/not indicated 09/17/17 15:07 - Plan (1) Diverticulitis Status: Acute Plan: OBTAIN ABD/PELVIS CT WITH CONTRAST, iv fluids, cipro iv, flagyl iv, toradol iv prn pain, zofran iv prn nausea, pepcid iv bid, protonix iv bid, continue to monitor (2) Constipation Status: Acute Qualifiers: Constipation type: slow transit constipation Qualified Code(s): K59.01 - Slow transit constipation Plan: COLACE, MILK OF MAGNESIA, MIRALAX, CONTINUE TO MONITOR
[2017-09-21] MEDS: ZANAFLEX PO SCH (21:32)
[2017-09-22] MEDS: FLAGYL IV PREMIX 500 MG BAG 500 MG/100 ML BAG IV SCH ×2 (02:16→08:38)
[2017-09-22] MEDS: D5 1/2 NS 1000 ML 1,000 ML IV SCH ×2 (05:06→12:34)
[2017-09-22] MEDS: SYNTHROID 88 mcg TAB PO SCH (05:07)
[2017-09-22] MEDS: ZOSYN VIAL 3.375 GM 3.375 GM in NS 100 ML IV + SPIKE MINIBAG* 100 ML IV SCH (05:07)
[2017-09-22 06:18] LABS: BASOPHILS % (AUTO) 0.6 % (0.2-1.0); EOSINOPHILS # (AUTO) 0.1 x10^3/uL (0.0-0.2); EOSINOPHILS % (AUTO) 1.1 % (0.9-2.9); HEMATOCRIT 31.9 % (36.0-47.0); HEMOGLOBIN 10.8 g/dL (12.0-16.0); LYMPHOCYTES # (AUTO) 1.2 X10^3/uL (1.3-2.9); LYMPHOCYTES % (AUTO) 19.4 % (21.0-51.0); MEAN CORPUSCULAR HEMOGLOBIN 28.8 pg (27.0-34.0); MEAN CORPUSCULAR VOLUME 84.7 fL (80.0-100.0); MEAN PLATELET VOLUME 10.1 fL (7.4-11.0); MONOCYTES # (AUTO) 0.6 x10^3/uL (0.3-0.8); MONOCYTES % (AUTO) 10.3 % (0.0-13.0); NEUTROPHILS # (AUTO) 4.1 x10^3/uL (2.2-4.8); NEUTROPHILS % (AUTO) 68.6 % (42.0-75.0); PLATELET COUNT 203 X10^3/uL (150.0-450.0); RED BLOOD COUNT 3.76 X10^6/uL (3.5-5.4); RED CELL DISTRIBUTION WIDTH 12.7 % (11.6-16.5)
[2017-09-22 06:37] LABS: ALANINE AMINOTRANSFERASE 15 Units/L (12-78); ALBUMIN 2.7 g/dL (3.4-5.0); ALKALINE PHOSPHATASE 92 Units/L (46-116); ASPARTATE AMINO TRANSFERASE 10 Units/L (15-37); BLOOD UREA NITROGEN 2 mg/dL (7-18); CALCIUM 8.5 mg/dL (8.5-10.1); CARBON DIOXIDE 31.1 mmol/L (21-32); CHLORIDE 107 mmol/L (98-107); COR CA(FOR HYPOALB) 9.5 mg/dL (8.5-10.1); COR NA(FOR HYPERGLY) 145 mmol/L (136-145); CREATININE 1.08 mg/dL (0.55-1.02); SODIUM 144 mmol/L (136-145); TOTAL PROTEIN 6.4 g/dL (6.4-8.2); eGFR BLACK RACES > 60 (>60); eGFR NON BLACK RACES 55 (>60)
[2017-09-22] MEDS: ZOFRAN INJ 4 MG VIAL IVP PRN (07:10)
[2017-09-22] MEDS: CELEXA PO SCH (08:37)
[2017-09-22] MEDS: PYRIDIUM PO SCH ×2 (08:37→12:33)
[2017-09-22] MEDS: MILK OF MAGNESIA PO SCH ×2 (08:37→12:34)
[2017-09-22] MEDS: MIRALAX POWDER (1 DOSE 17GM) PO SCH (08:38)
[2017-09-22] MEDS: PEPCID 20 MG IV PREMIX* 20 MG/50 ML BAG IV SCH (08:38)
[2017-09-22] MEDS: PROTONIX INJ 40 MG VIAL IVP SCH (08:38)
[2017-09-22] MEDS: XANAX PO PRN (12:33)
[2017-09-22 12:35] VITALS: BP 115/72
== END 2017-09-22 12:44 | disposition home or self-care (01) | DRG 392 ==
LOC: OBS 10:03 → MED/SURG 09-18 14:58
PROVIDERS: ADMIT Internal Medicine; ATTEND Internal Medicine
DX: K57.32 Diverticulitis of large intestine without perforation or abscess without bleeding (principal); R10.84 Generalized abdominal pain; K59.01 Slow transit constipation
CPT/HCPCS: 36415; 74177; 80053; 81001; 83735; 85025; A4222; C9113; S0028; S0030; S0181; J0744; J1885; J2405; J2543; J2550; J7042

== ENCOUNTER 2022-07-09 20:35 | Inpatient (IN) ==
[2022-07-09 20:55] VITALS: BMI 26.5
[2022-07-09] MEDS ORDERED: NS 1,000 ML IV 1,000 ML IV ONE ×2 (21:02→23:56)
[2022-07-09] MEDS ORDERED: NS 1,000 ML IV 1,000 ML ONE (21:06)
[2022-07-09 21:21] LABS: BASOPHILS # (AUTO) 0.1 X10^3/uL (0.0-0.1); BASOPHILS % (AUTO) 0.5 % (0.2-1.0); EOSINOPHILS % (AUTO) 0.1 % (0.9-2.9); HEMATOCRIT 38.3 % (36.0-47.0); HEMOGLOBIN 12.9 g/dL (12.0-16.0); LYMPHOCYTES # (AUTO) 1.1 X10^3/uL (1.3-2.9); LYMPHOCYTES % (AUTO) 9.5 % (21.0-51.0); MEAN CORPUSCULAR HEMOGLOBIN 29.1 pg (27.0-34.0); MEAN CORPUSCULAR HGB CONC 33.5 g/dL (33.0-35.0); MEAN CORPUSCULAR VOLUME 86.8 fL (80.0-100.0); MEAN PLATELET VOLUME 10.1 fL (7.4-11.0); MONOCYTES # (AUTO) 0.7 x10^3/uL (0.3-0.8); NEUTROPHILS # (AUTO) 9.5 x10^3/uL (2.2-4.8); NEUTROPHILS % (AUTO) 83.9 % (42.0-75.0); RED BLOOD COUNT 4.41 X10^6/uL (3.5-5.4); RED CELL DISTRIBUTION WIDTH 12.6 % (11.6-16.5); WHITE BLOOD COUNT 11.3 X10^3/uL (3.6-10.0)
[2022-07-09 21:31] LABS: BILIRUBIN,URINE NEGATIVE (NEGATIVE); BLOOD/HEMOGLOBIN,URINE 1+ (NEGATIVE); GLUCOSE, URINE NEGATIVE (NEGATIVE); KETONES,URINE NEGATIVE (NEGATIVE); LEUKOCYTE ESTERASE ,URINE NEGATIVE (NEGATIVE); NITRITES,URINE NEGATIVE (NEGATIVE); PROTEIN,URINE NEGATIVE (NEGATIVE); UROBILINOGEN,URINE NORMAL (NORMAL)
[2022-07-09 21:34] LABS: ALANINE AMINOTRANSFERASE 27 Units/L (12-78); ALBUMIN 3.8 g/dL (3.4-5.0); ALKALINE PHOSPHATASE 82 Units/L (46-116); AMYLASE 45 Units/L (25-115); ASPARTATE AMINO TRANSFERASE 30 Units/L (15-37); BLOOD UREA NITROGEN 22 mg/dL (7-18); CALCIUM 9.8 mg/dL (8.5-10.1); CARBON DIOXIDE 28.6 mmol/L (21-32); CHLORIDE 102 mmol/L (98-107); CREATININE 0.75 mg/dL (0.55-1.02); LIPASE 199 Units/L (73-393); SODIUM 135 mmol/L (136-145); eGFR NON BLACK RACES > 60 (>60)
[2022-07-09 21:50] LABS: STREP A BY PCR NOT DETECTED (NOT DETECT)
[2022-07-09 21:54] LABS: APPEARANCE,URINE CLEAR (CLEAR); BACTERIA,URINE TRACE /HPF (NEGATIVE); COLOR,URINE PALE YELLOW (YELLOW); RBC,URINE 0-2 /HPF (0-3); SQUAMOUS EPITHELIAL CELL,UR MODERATE /HPF (NEGATIVE)
--- NOTE | 2022-07-09 22:05 | ED.ABDFE ---
HPI Time Seen Time Seen by Provider: 07/09/22 22:03 PCP Primary Care Physician: JARROD Vázquez Doctors Chief Complaint Comments: HEADACHE,NAUSEA AND VOMITING FOR SEVERAL MONTHS WITH STOMACH ACHE. Chief Complaint:: PT AMBULATORY IN ED WITH C/O HEADACHE FOR SEVERAL MONTHS BUT WORSE TONIGHT, NAUSEA SINCE TUESDAY, ABD PAIN FOR 2-3 DAYS AND FEVER. STATED SHE HAD DIARRHEA TUESDAY AND TUESDAY. Self Treatment fo Chief Complaint: PT TOOK 2 ADVIL APPROX 2 HRS PRIOR TO ARRIVAL. COVID-19 Coronavirus risk:travel/contact w/high risk person: No Has patient experienced Coronavirus symptoms: Yes Coronavirus symptoms experienced: Fever Source History Provided: Patient and Family Member Mode of arrival Mode of Arrival: Ambulatory Timing Onset of Chief Complaint: 07/09/22 PMH PMH Past Medical History: Yes Past Medical History: Anxiety, Depression, Dyslipidemia and Hypothyroidism Past Medical History Comment: MEMORY LOSS Past Surgical History: Yes Surgical History: Hysterectomy and Ortho Surgery Past Surgical History Comment: LOWER BACK NECK RIGHT SHOULDER Family History History of Family Medical Conditions: Yes Family Medical History: Diabetes Mellitus, Cancer, Coronary Artery Disease and Hypertension Social History Does patient currently use any type of tobacco product: No Have you used tobacco products in the last 12 months: No Type of Tobacco Use: None Does any household member use tobacco: No Alcohol Use: Occasionally Do you use any recreational Drugs:: No Lives With: Spouse Lives Where: Home Travel Risk Coronavirus risk:travel/contact w/high risk person: No Has patient experienced Coronavirus symptoms: Yes Coronavirus symptoms experienced: Fever Infectious screening In the last 2 months have you had wt loss of >10#?: NO Have you had fever, night sweats or hemotysis?: No Have you traveled outside the country in the last 6 months?: No Isolation: Standard ROS Review of Systems Constitutional: Other (ABDOMINAL PAIN WITH NAUSEA,HEADACHE) Eyes: No Symptoms Reported ENTM: No Symptoms Reported Respiratoy: No Symptoms Reported Cardiovascular: No Symptoms Reported Gastrointestinal/Abdominal: Abdominal Pain and Nausea Genitourinary: No Symptoms Reported Neurological: Headache Musculoskeletal: No Symptoms Reported Integumentary: No Symptoms Reported Hematologic/Lymphatic: No Symptoms Reported Endocrine: No Symptoms Reported Psychiatric: Anxiety PE Vital Signs Vitals: Temperature 99.8 F Pulse Rate 117 Respiratory Rate 20 Blood Pressure [Right Arm] 115/72 Blood Pressure [Left Arm] 103/62 Blood Pressure [Left Arm] 89/50 Blood Pressure 114/69 O2 Sat by Pulse Oximetry 94 General Limitations: No Limitations General Appearance: In Distress (MILD DISTRESS) Head Head Exam: Normal Inspection, Atraumatic and Normocephalic Eyes Eye exam: Normal Appearance, PERRL and EOMI ENT ENT Exam: Normal Exam, Normal Oropharynx and Normal External Ear Exam Neck Neck Exam: Normal Inspection, Full ROM and Trachea Midline Chest Chest Inspection: Normal Inspection and Symmetric Chest Wall Rise Respiratory Respiratory Exam: Normal Lung Sounds Bilat Respiratory Exam: Bilateral: Clear to Auscultation Cardiovascular Cardiovascular Exam: Regular Rate and Normal Rhythm Abdominal Exam Abdominal Exam: Normal Inspection, Normal Bowel Sounds and Soft Abdominal Tenderness: Epigastrium Rectal Rectal Exam: Deferred Back Back Exam: Normal Inspection and Full ROM Extremeties Extremities Exam: Normal Inspection and Full ROM Neurologic Neurological Exam: Alert, Oriented X3 and CN II-XII Intact Skin Skin Exam: Warm, Dry and Intact MDM Differential Diagnosis Differential Diagnosis- Considerations may include:: Bowel Obstruction, Constipation, Diverticular disease, Gastritus/PUD, Urinary tract infection and Other (comments) (TENSION HEADACHE) COURSE Treatment Treatment: PATIENT REMAINED RELATIVELY STABLE IN ER . CT OF ABD SHOWED DIVERTICULOSIS AND DIVERTICULITIS IN ASCENDING COLON.COVID RESPIRATORY PANEL WAS NEGATIVE AND CARDIAC EVALUATION WAS NORMAL.WAS GIVEN 2 LIRTERS OF SODIM CHLORIDE AND WILL CALL ATTENDING [employer] GOVERNOR FOR POSSIBLE ADMISSION. SPOKE TO DR VIGIL AT 0020 AND HE STATED THAT HE WOULD ACCEPT THE PATIENT FOR ADMISSION FOR DIVERTICULITIS. PUT THE PATIENT ON FLAGYL AND CIPRO AND MAKE NPO AND TREAT FOR PAIN. THE PATIENT AND FAMILY WAS MADE AWARE OF THE INTENT AND WAS AGREABLE TO THE ADMISSION. ROR Labs Reviewed Laboratory Results Reviewed?: Yes Result Diagrams: 07/09/22 21:12 07/09/22 21:12 Laboratory: WBC 11.3 X10^3/uL (3.6-10.0) H 07/09/22 21:12 RBC 4.41 X10^6/uL (3.5-5.4) 07/09/22 21:12 Hgb 12.9 g/dL (12.0-16.0) 07/09/22 21:12 Hct 38.3 % (36.0-47.0) 07/09/22 21:12 MCV 86.8 fL (80.0-100.0) 07/09/22 21:12 MCH 29.1 pg (27.0-34.0) 07/09/22 21:12 MCHC 33.5 g/dL (33.0-35.0) 07/09/22 21:12 RDW 12.6 % (11.6-16.5) 07/09/22 21:12 Plt Count 136 X10^3/uL (150.0-450.0) L 07/09/22 21:12 MPV 10.1 fL (7.4-11.0) 07/09/22 21:12 Neut % (Auto) 83.9 % (42.0-75.0) H 07/09/22 21:12 Lymph % (Auto) 9.5 % (21.0-51.0) L 07/09/22 21:12 [place] % (Auto) 6.0 % (0.0-13.0) 07/09/22 21:12 Eos % (Auto) 0.1 % (0.9-2.9) L 07/09/22 21:12 Baso % (Auto) 0.5 % (0.2-1.0) 07/09/22 21:12 Neut # (Auto) 9.5 x10^3/uL (2.2-4.8) H 07/09/22 21:12 Lymph # (Auto) 1.1 X10^3/uL (1.3-2.9) L 07/09/22 21:12 [place] # (Auto) 0.7 x10^3/uL (0.3-0.8) 07/09/22 21:12 Eos # (Auto) 0.0 x10^3/uL (0.0-0.2) 07/09/22 21:12 Baso # (Auto) 0.1 X10^3/uL (0.0-0.1) 07/09/22 21:12 Absolute Nucleated RBC 0.0 /100WBC 07/09/22 21:12 Sodium 135 mmol/L (136-145) L 07/09/22 21:12 Corrected Sodium TNP 07/09/22 21:12 Potassium 3.6 mmol/L (3.5-5.1) 07/09/22 21:12 Chloride 102 mmol/L (98-107) 07/09/22 21:12 Carbon Dioxide 28.6 mmol/L (21-32) 07/09/22 21:12 BUN 22 mg/dL (7-18) H 07/09/22 21:12 Creatinine 0.75 mg/dL (0.55-1.02) 07/09/22 21:12 Est GFR (MDRD) Af Amer > 60 (>60) 07/09/22 21:12 Est GFR (MDRD) Non-Af > 60 (>60) 07/09/22 21:12 Glucose 100 mg/dL (65-99) H 07/09/22 21:12 Lactic Acid 0.4 mmol/L (0.4-2.0) 07/10/22 00:16 Calcium 9.8 mg/dL (8.5-10.1) 07/09/22 21:12 Corrected Calcium TNP 07/09/22 21:12 Total Bilirubin 0.50 mg/dL (0.2-1.0) 07/09/22 21:12 AST 30 Units/L (15-37) 07/09/22 21:12 ALT 27 Units/L (12-78) 07/09/22 21:12 Alkaline Phosphatase 82 Units/L (46-116) 07/09/22 21:12 Total Protein 7.0 g/dL (6.4-8.2) 07/09/22 21:12 Albumin 3.8 g/dL (3.4-5.0) 07/09/22 21:12 Globulin 3.2 g/dL (2.5-4.5) 07/09/22 21:12 Albumin/Globulin Ratio 1.2 Ratio (1.1-2.1) 07/09/22 21:12 Amylase 45 Units/L (25-115) 07/09/22 21:12 Lipase 199 Units/L (73-393) 07/09/22 21:12 Specimen Type Clean catch urine 07/09/22 21:17 Urine Color Pale yellow (YELLOW) 07/09/22 21:17 Urine Appearance Clear (CLEAR) 07/09/22 21:17 Urine pH 8.0 (5.0 - 8.0) 07/09/22 21:17 Ur Specific [place] 1.015 (1.000-1.030) 07/09/22 21:17 Urine Protein Negative (NEGATIVE) 07/09/22 21:17 Urine Glucose (UA) Negative (NEGATIVE) 07/09/22 21:17 Urine Ketones Negative (NEGATIVE) 07/09/22 21:17 Urine Blood 1+ (NEGATIVE) 07/09/22 21:17 Urine Nitrite Negative (NEGATIVE) 07/09/22 21:17 Urine Bilirubin Negative (NEGATIVE) 07/09/22 21:17 Urine Urobilinogen Normal (NORMAL) 07/09/22 21:17 Ur Leukocyte Esterase Negative (NEGATIVE) 07/09/22 21:17 Urine RBC 0-2 /HPF (0-3) 07/09/22 21:17 Urine WBC 0-2 /HPF (0-5) 07/09/22 21:17 Ur Squamous Epith Cells Moderate /HPF (NEGATIVE) 07/09/22 21:17 Urine Bacteria Trace /HPF (NEGATIVE) 07/09/22 21:17 Ur Culture Indicated? No/not indicated 07/09/22 21:17 SARS-CoV-2 (PCR) Negative (NEGATIVE) 07/09/22 21:17 Influenza Type A (PCR) Negative (NEGATIVE) 07/09/22 21:17 Influenza Type B (PCR) Negative (NEGATIVE) 07/09/22 21:17 RSV (PCR) Negative (NEGATIVE) 07/09/22 21:17 S. pyogenes (TEM-PCR) Not detected (NOT DETECT) 07/09/22 21:17 Opioid Opioid Risk Tool Age (Roger box if 16-45): No History of Preadolescent Sexual Abuse: No Total: 0 Total Score Risk Category: Low Risk Copyright: Acosta HERRERA predicting aberrant behaviors Discharge Plan Diagnosis Discharge Problem: Diverticulitis, Headache Discharge Plan Patient Disposition: 09 ADMITTED INPATIENT Condition: Stable Prescriptions: No Action tizanidine [Zanaflex] 4 MG capsule 4 mg PO HS celecoxib 200 mg capsule 1 cap PO QDAY lovastatin 40 mg tablet 1 tab PO QDAY levothyroxine 88 mcg tablet 1 tab PO QDAY alprazolam 2 mg tablet 1 tab PO TID sertraline 50 mg tablet 1 tab PO QPM polyethylene glycol 3350 255 GM/BOTTLE powder 17 gm PO BID Rx Instructions: mix one capful in beverage of choice daily as needed for constipation Health Concerns: Post Hospitalization: new medications and changes needed to prevent readmission or further decline. Pt educated and given instructions on all concerns. Plan of Treatment: Continue with present treatment and follow up plan. Pt is to keep follow up appointment as instructed and take medications as ordered. Orders to Discharge Patient Discharge Orders: Transfer (Routine); Ordered 07/10/22 Ordered By: Lauro Alfonso Follow ups/Referrals Follow ups/Referrals: Alcides Briones [Primary Care Provider] - 3 days
--- NOTE | 2022-07-09 22:48 | CT ---
EXAM: CT ABDOMEN AND PELVIS WITHOUT INTRAVENOUS CONTRASTHISTORY: Abdominal pain x2 to 3 days. Fever. Diarrhea.TECHNIQUE: Spiral axial CT images are obtained through the abdomen and pelvis without the administration of intravenous contrast. Additional coronal and sagittal reformatted images are reconstructed.DOSIMETRY: Total DLP 265.8 mGycm; CTDI 5.18 mGyCOMPARISON: None available.FINDINGS:GASTROINTESTINAL TRACT: There is a small hiatal hernia (3.3 cm AP by 2.9 cm transverse). Nonspecific, fluid-filled, nondilated stomach, small bowel loops, and right-sided large bowel loops; presumed gastroenteritis with impending diarrhea. Clinical correlation is advised. Evidence for diffuse colonic diverticulosis, most severe in the descending colon and sigmoid regions, with evidence for acute ascending colon diverticulitis (axial image 41?50; coronal image 11?17; sagittal image 52?60), marked by diverticular wall thickening and pericolonic streaky inflammatory change. No drainable fluid collection, free air, or abscess formation seen. No evidence for bowel herniation, bowel obstruction, or colitis. A normal-appearing appendix is seen.GENITOURINARY SYSTEM: There is a large, approximately 7.4 cm, exophytic right upper pole renal cyst. The kidneys are otherwise unremarkable. There is no ureteral calculus or stigmata of obstructive uropathy. The urinary bladder is grossly unremarkable for a non-dedicated exam.CT ABDOMEN: There is an approximately 1.6 cm right hepatic dome cyst; otherwise unremarkable liver. The spleen, pancreas, adrenal glands, gallbladder, aorta, and inferior vena cava are within normal limits for a noncontrast CT scan. There is no intra-abdominal or retroperitoneal lymphadenopathy, free fluid, or free air seen. No abdominal herniation is noted.CT PELVIS: Status post hysterectomy. No pelvic sidewall or inguinal lymphadenopathy is seen. No inguinal herniation is noted. No free fluid or free air is seen.BONES AND JOINTS: L4/5: Disc fusion noted with metallic hardware in situ. Multilevel DDD is seen within the distal thoracic spine, marked by disc space narrowing and prominent bridging anterior marginal osteophytosis. The visualized bony structures are otherwise within normal limits.LUNG BASES: The lung bases are clear.IMPRESSION:1. Small hiatal hernia (3.3 cm AP by 2.9 cm transverse).2. Nonspecific, fluid-filled, nondilated stomach, small bowel loops, and right-sided large bowel loops; presumed gastroenteritis with impending diarrhea. Clinical correlation is advised.3. Diffuse colonic diverticulosis, most severe in the descending colon and sigmoid regions, with evidence for acute ascending colon diverticulitis (axial image 41?50; coronal image 11?17; sagittal image 52?60), marked by diverticular wall thickening and pericolonic streaky inflammatory change.4. No drainable fluid collection, free air, or abscess formation seen.5. No evidence for bowel herniation, bowel obstruction, appendicitis or colitis.6. No evidence for renal stone disease or obstructive uropathy.7. No free fluid, free air, mass lesions, or lymphadenopathy seen.Electronically signed by: Isa Shipman (Jul 09, 2022 22:47:00)
[2022-07-10] MEDS ORDERED: NS 1,000 ML IV 1,000 ML ONE (00:01)
[2022-07-10] MEDS ORDERED: DEMEROL INJ IVP PRN (01:03)
[2022-07-10] MEDS ORDERED: FLAGYL IV PREMIX 500 MG BAG 500 MG/100 ML BAG IV ONE (01:14)
[2022-07-10] MEDS ORDERED: ZOFRAN INJ 4 MG VIAL ONE (01:21)
[2022-07-10] MEDS ORDERED: DEMEROL INJ ONE (01:21)
[2022-07-10] MEDS: FLAGYL IV PREMIX 500 MG BAG 500 MG/100 ML BAG IV SCH ×5 (01:29→20:00)
[2022-07-10] MEDS: ZOFRAN INJ 4 MG VIAL IVP PRN ×3 (01:29→19:59)
[2022-07-10] MEDS: D5 1/2 NS 1,000 ML 1,000 ML IV SCH ×4 (03:40→17:22)
[2022-07-10] MEDS: NS IV SCH ×3 (05:39→21:52)
[2022-07-10] MEDS: MEFOXIN IV SCH ×3 (05:39→21:52)
[2022-07-10 06:13] LABS: BASOPHILS % (AUTO) 0.1 % (0.2-1.0); HEMATOCRIT 32.8 % (36.0-47.0); HEMOGLOBIN 11.3 g/dL (12.0-16.0); LYMPHOCYTES # (AUTO) 0.7 X10^3/uL (1.3-2.9); LYMPHOCYTES % (AUTO) 6.2 % (21.0-51.0); MEAN CORPUSCULAR HEMOGLOBIN 30.1 pg (27.0-34.0); MEAN CORPUSCULAR HGB CONC 34.4 g/dL (33.0-35.0); MEAN CORPUSCULAR VOLUME 87.6 fL (80.0-100.0); MEAN PLATELET VOLUME 9.9 fL (7.4-11.0); MONOCYTES # (AUTO) 0.7 x10^3/uL (0.3-0.8); MONOCYTES % (AUTO) 6.6 % (0.0-13.0); NEUTROPHILS # (AUTO) 9.4 x10^3/uL (2.2-4.8); NEUTROPHILS % (AUTO) 87.1 % (42.0-75.0); RED BLOOD COUNT 3.74 X10^6/uL (3.5-5.4); RED CELL DISTRIBUTION WIDTH 12.6 % (11.6-16.5); WHITE BLOOD COUNT 10.8 X10^3/uL (3.6-10.0)
[2022-07-10 06:32] LABS: ALANINE AMINOTRANSFERASE 30 Units/L (12-78); ALKALINE PHOSPHATASE 73 Units/L (46-116); ASPARTATE AMINO TRANSFERASE 35 Units/L (15-37); BLOOD UREA NITROGEN 15 mg/dL (7-18); CARBON DIOXIDE 29.5 mmol/L (21-32); CHLORIDE 107 mmol/L (98-107); COR CA(FOR HYPOALB) 9.8 mg/dL (8.5-10.1); COR NA(FOR HYPERGLY) 139 mmol/L (136-145); CREATININE 0.71 mg/dL (0.55-1.02); SODIUM 138 mmol/L (136-145); eGFR NON BLACK RACES > 60 (>60)
[2022-07-10] MEDS ORDERED: ZANAFLEX PO PRN (10:48)
[2022-07-10] MEDS ORDERED: PHENERGAN INJ 25 MG IM PRN (10:51)
[2022-07-10] MEDS: DEMEROL INJ IVP PRN ×2 (11:24→19:59)
--- NOTE | 2022-07-10 11:55 | DR.H&P ---
H&P History & Physical for Day of: H&P Date: 07/10/22 Chief Complaint Chief Complaint: Abdominal pain Nausea Allergies Allergies Allergy/AdvReac Type Severity Reaction Status Date / Time ciprofloxacin [From Cipro] Allergy Verified 09/17/17 13:23 codeine Allergy Verified 09/17/17 11:45 hydromorphone [From Dilaudid] Allergy Verified 09/17/17 11:45 morphine Allergy Verified 09/17/17 11:45 History of Present Illness History of Present Illness: Pt is a 61 year old male past medical history anxiety, hypothyroidism, dyslipidemia presenting with gradually worsening abdominal pain for the past week. She reports having diverticulitis two years ago that felt the same way. Denies fevers and chills. Labs/imaging: Wbc 10.8, Hgb 11.3, Plt 99, Na 138, K 4.0, Creatinine 0.71, Glucose 128, Blood culture pending. CT abdomen and pelvis was obtained that revealed: Diffuse colonic diverticulosis, most severe in the descending colon and sigmoid regions, with evidence for acute ascending colon diverticulitis marked by diverticular wall thickening and pericolonic streaky inflammatory change. Pt admitted for acute diverticulitis. Pt was started on IVF D5 1/2NS@125ml/h, antibiotics IV Cefoxitin and Flagyl. Can start on clear liquid diet. Order demerol prn for pain and phenergan for nausea. Restart home medications. Continue to closely monitor and follow up labs in the morning. Past Medical History Past Medical History: Anxiety, Depression, Dyslipidemia and Hypothyroidism Past Surgical History Surgical History: Hysterectomy Family History Family Medical History: Diabetes Mellitus, Cancer, Coronary Artery Disease and Hypertension Social History Does patient currently use any type of tobacco product: No Have you used tobacco products in the last 12 months: No Type of Tobacco Use: None Does any household member use tobacco: No Alcohol Use: Occasionally Drug Use: None Medications Home Medications: ciprofloxacin [From Cipro] Allergy (Verified 09/17/17 13:23) codeine Allergy (Verified 09/17/17 11:45) hydromorphone [From Dilaudid] Allergy (Verified 09/17/17 11:45) morphine Allergy (Verified 09/17/17 11:45) CONTINUE taking the following medications alprazolam 2 mg tablet 1 tab PO TID 07/09/22 [History] celecoxib 200 mg capsule 1 cap PO QDAY 07/09/22 [History] levothyroxine 88 mcg tablet 1 tab PO QDAY 07/09/22 [History] lovastatin 40 mg tablet 1 tab PO QDAY 07/09/22 [History] polyethylene glycol 3350 17 gram/dose oral powder 17 gm PO BID 07/09/22 [History] sertraline 50 mg tablet 1 tab PO QPM 07/09/22 [History] Labs Result Diagrams: 07/10/22 05:20 07/10/22 05:20 Labs: Laboratory WBC 10.8 X10^3/uL (3.6-10.0) H 07/10/22 05:20 RBC 3.74 X10^6/uL (3.5-5.4) 07/10/22 05:20 Hgb 11.3 g/dL (12.0-16.0) L 07/10/22 05:20 Hct 32.8 % (36.0-47.0) L 07/10/22 05:20 MCV 87.6 fL (80.0-100.0) 07/10/22 05:20 MCH 30.1 pg (27.0-34.0) 07/10/22 05:20 MCHC 34.4 g/dL (33.0-35.0) 07/10/22 05:20 RDW 12.6 % (11.6-16.5) 07/10/22 05:20 Plt Count 99 X10^3/uL (150.0-450.0) L 07/10/22 05:20 MPV 9.9 fL (7.4-11.0) 07/10/22 05:20 Neut % (Auto) 87.1 % (42.0-75.0) H 07/10/22 05:20 Lymph % (Auto) 6.2 % (21.0-51.0) L 07/10/22 05:20 [place] % (Auto) 6.6 % (0.0-13.0) 07/10/22 05:20 Eos % (Auto) 0.0 % (0.9-2.9) L 07/10/22 05:20 Baso % (Auto) 0.1 % (0.2-1.0) L 07/10/22 05:20 Neut # (Auto) 9.4 x10^3/uL (2.2-4.8) H 07/10/22 05:20 Lymph # (Auto) 0.7 X10^3/uL (1.3-2.9) L 07/10/22 05:20 [place] # (Auto) 0.7 x10^3/uL (0.3-0.8) 07/10/22 05:20 Eos # (Auto) 0.0 x10^3/uL (0.0-0.2) 07/10/22 05:20 Baso # (Auto) 0.0 X10^3/uL (0.0-0.1) 07/10/22 05:20 Absolute Nucleated RBC 0.0 /100WBC 07/10/22 05:20 Sodium 138 mmol/L (136-145) 07/10/22 05:20 Corrected Sodium 139 mmol/L (136-145) 07/10/22 05:20 Potassium 4.0 mmol/L (3.5-5.1) 07/10/22 05:20 Chloride 107 mmol/L (98-107) 07/10/22 05:20 Carbon Dioxide 29.5 mmol/L (21-32) 07/10/22 05:20 BUN 15 mg/dL (7-18) 07/10/22 05:20 Creatinine 0.71 mg/dL (0.55-1.02) 07/10/22 05:20 Est GFR (MDRD) Af Amer > 60 (>60) 07/10/22 05:20 Est GFR (MDRD) Non-Af > 60 (>60) 07/10/22 05:20 Glucose 128 mg/dL (65-99) H 07/10/22 05:20 Lactic Acid 0.4 mmol/L (0.4-2.0) 07/10/22 00:16 Calcium 9.0 mg/dL (8.5-10.1) 07/10/22 05:20 Corrected Calcium 9.8 mg/dL (8.5-10.1) 07/10/22 05:20 Total Bilirubin 0.50 mg/dL (0.2-1.0) 07/10/22 05:20 AST 35 Units/L (15-37) 07/10/22 05:20 ALT 30 Units/L (12-78) 07/10/22 05:20 Alkaline Phosphatase 73 Units/L (46-116) 07/10/22 05:20 Total Protein 6.0 g/dL (6.4-8.2) L 07/10/22 05:20 Albumin 3.0 g/dL (3.4-5.0) L 07/10/22 05:20 Globulin 3.0 g/dL (2.5-4.5) 07/10/22 05:20 Albumin/Globulin Ratio 1.0 Ratio (1.1-2.1) L 07/10/22 05:20 Amylase 45 Units/L (25-115) 07/09/22 21:12 Lipase 199 Units/L (73-393) 07/09/22 21:12 Specimen Type Clean catch urine 07/09/22 21:17 Urine Color Pale yellow (YELLOW) 07/09/22 21:17 Urine Appearance Clear (CLEAR) 07/09/22 21:17 Urine pH 8.0 (5.0 - 8.0) 07/09/22 21:17 Ur Specific [place] 1.015 (1.000-1.030) 07/09/22 21:17 Urine Protein Negative (NEGATIVE) 07/09/22 21:17 Urine Glucose (UA) Negative (NEGATIVE) 07/09/22 21:17 Urine Ketones Negative (NEGATIVE) 07/09/22 21:17 Urine Blood 1+ (NEGATIVE) 07/09/22 21:17 Urine Nitrite Negative (NEGATIVE) 07/09/22 21:17 Urine Bilirubin Negative (NEGATIVE) 07/09/22 21:17 Urine Urobilinogen Normal (NORMAL) 07/09/22 21:17 Ur Leukocyte Esterase Negative (NEGATIVE) 07/09/22 21:17 Urine RBC 0-2 /HPF (0-3) 07/09/22 21:17 Urine WBC 0-2 /HPF (0-5) 07/09/22 21:17 Ur Squamous Epith Cells Moderate /HPF (NEGATIVE) 07/09/22 21:17 Urine Bacteria Trace /HPF (NEGATIVE) 07/09/22 21:17 Ur Culture Indicated? No/not indicated 07/09/22 21:17 SARS-CoV-2 (PCR) Negative (NEGATIVE) 07/09/22 21:17 Influenza Type A (PCR) Negative (NEGATIVE) 03/10/23 21:17 Influenza Type B (PCR) Negative (NEGATIVE) 07/09/22 21:17 RSV (PCR) Negative (NEGATIVE) 07/09/22 21:17 S. pyogenes (TEM-PCR) Not detected (NOT DETECT) 07/09/22 21:17 Review of Systems Constitutional: No Symptoms Reported Eyes: No Symptoms Reported ENT: No Symptoms Reported Respiratory: No Symptoms Reported Cardiovascular: No Symptoms Reported Gastrointestinal: Nausea and Abdominal Pain Genitourinary: No Symptoms Reported Musculoskeletal: No Symptoms Reported Skin: No Symptoms Reported Neurological: No Symptoms Reported Physical Exam Vital Signs: Temperature 97.9 F Pulse Rate [Left] 84 Pulse Rate 117 Respiratory Rate 16 Blood Pressure [Right Arm] 122/74 Blood Pressure [Left Arm] 103/62 Blood Pressure [Left Arm] 89/50 Blood Pressure 114/69 O2 Sat by Pulse Oximetry 97 Oriented: Normal Eyes: Normal Ear: Normal Nose: Normal Throat: Normal Respiratory: Clear Throughout Cardiovascular: Normal : Normal Auscultation: Bowel Sounds: Normal Palpation: Normal Tenderness: Diffuse and Moderate Skin: Normal Musculoskeletal: Normal Psychiatric: Normal Mood Description: Calm and Appropriate Affect: Normal Speech Pattern: Clear and Appropriate Assessment/Plan (1) Acute diverticulitis: Status: Acute Plan: IVF, IV antibiotics. Pain and nausea management Review H&P Reviewed: Yes Patient was examined?: Yes
[2022-07-10] MEDS: XANAX PO PRN (14:44)
[2022-07-10] MEDS: TYLENOL 325 MG TAB PO PRN ×2 (15:34→21:55)
[2022-07-11] MEDS: D5 1/2 NS 1,000 ML 1,000 ML IV SCH ×4 (01:01→17:28)
[2022-07-11] MEDS: FLAGYL IV PREMIX 500 MG BAG 500 MG/100 ML BAG IV SCH ×4 (03:52→20:01)
[2022-07-11 05:07] LABS: BASOPHILS % (AUTO) 0.2 % (0.2-1.0); EOSINOPHILS % (AUTO) 0.2 % (0.9-2.9); LYMPHOCYTES % (AUTO) 14.1 % (21.0-51.0); MEAN CORPUSCULAR HEMOGLOBIN 30.2 pg (27.0-34.0); MEAN CORPUSCULAR HGB CONC 34.5 g/dL (33.0-35.0); MEAN CORPUSCULAR VOLUME 87.6 fL (80.0-100.0); MEAN PLATELET VOLUME 10.6 fL (7.4-11.0); MONOCYTES # (AUTO) 0.6 x10^3/uL (0.3-0.8); MONOCYTES % (AUTO) 7.5 % (0.0-13.0); NEUTROPHILS # (AUTO) 5.7 x10^3/uL (2.2-4.8); RED BLOOD COUNT 3.66 X10^6/uL (3.5-5.4); RED CELL DISTRIBUTION WIDTH 12.8 % (11.6-16.5); WHITE BLOOD COUNT 7.3 X10^3/uL (3.6-10.0)
[2022-07-11] MEDS: NS IV SCH ×3 (05:13→21:39)
[2022-07-11] MEDS: MEFOXIN IV SCH ×3 (05:13→21:39)
[2022-07-11 05:36] LABS: ALANINE AMINOTRANSFERASE 23 Units/L (12-78); ALBUMIN 2.9 g/dL (3.4-5.0); ALKALINE PHOSPHATASE 67 Units/L (46-116); ASPARTATE AMINO TRANSFERASE 16 Units/L (15-37); BLOOD UREA NITROGEN 8 mg/dL (7-18); CALCIUM 9.5 mg/dL (8.5-10.1); CARBON DIOXIDE 27.9 mmol/L (21-32); COR CA(FOR HYPOALB) 10.4 mg/dL (8.5-10.1); CREATININE 0.69 mg/dL (0.55-1.02); TOTAL PROTEIN 6.1 g/dL (6.4-8.2); eGFR NON BLACK RACES > 60 (>60)
[2022-07-11] MEDS: SYNTHROID 88 mcg TAB PO SCH (05:38)
[2022-07-11 06:06] LABS: CHLORIDE 107 mmol/L (98-107); SODIUM 140 mmol/L (136-145)
--- NOTE | 2022-07-11 08:23 | RAD ---
HISTORYAbdomen painSTUDYKUBCOMPARISONCT abdomen July 09, 2022FINDINGSThe intestinal gas pattern does not suggest obstruction or localized ileus. No evidence for mass, organ enlargement or urinary calcification. Probable Timothy's lobe of liver.IMPRESSIONNo acute or significant abdominal findings.Electronically signed by: OBIE LESLIE (Jul 11, 2022 08:21:35)
[2022-07-11] MEDS ORDERED: PHENERGAN INJ 25 MG IM PRN (10:39)
[2022-07-11] MEDS: TYLENOL 325 MG TAB PO PRN ×2 (10:54→18:25)
[2022-07-11] MEDS: ZOFRAN INJ 4 MG VIAL IVP PRN (10:54)
--- NOTE | 2022-07-11 11:16 | PCM.PROG ---
Progress Note Progress Note for Day of Date of Exam: 07/11/22 Subjective Subjective: Pt is a 61 year old male past medical history anxiety, hypothyroidism, dyslipidemia admitted for acute diverticulitis. This morning she is resting in bed. She was able to tolerate a little soup for breakfast. No acute events overnight. Labs/imaging: Wbc 7.3, Hgb 11, Plt 115, Na 140, K 3.5, C reatinine 0.69, Glucose 105, Blood culture pending. CT abdomen and pelvis was obtained that revealed: Diffuse colonic diverticulosis, most severe in the descending colon and sigmoid regions, with evidence for acute ascending colon diverticulitis marked by diverticular wall thickening and pericolonic streaky inflammatory change. Pt is currently receiving: IVF D5 1/2NS@125ml/h, antibiotics IV Cefoxitin and Flagyl, Demerol prn for pain and phenergan for nausea. Continue with clear liquid diet and can advance as tolerated. Home medications have been resumed. Continue to closely monitor and follow up labs in the morning. Past Medical Family Social History Allergies: Allergies ciprofloxacin [From Cipro] Allergy (Verified 09/17/17 13:23) codeine Allergy (Verified 09/17/17 11:45) hydromorphone [From Dilaudid] Allergy (Verified 09/17/17 11:45) morphine Allergy (Verified 09/17/17 11:45) Review of Systems ROS changes noted: see HPI Vital Signs and I&O's Vital Signs: Temperature 98.1 F Pulse Rate [Left] 67 Pulse Rate 117 Respiratory Rate 18 Blood Pressure [Right Arm] 110/61 Blood Pressure [Left Arm] 103/62 Blood Pressure [Left Arm] 89/50 Blood Pressure 114/69 O2 Sat by Pulse Oximetry 98 Intake and Output: Intake & Output 07/08/22 07/09/22 07/10/22 07/12/22 23:59 23:59 23:59 00:59 Intake Total 3431 / 3431 669 / 669 Output Total 130 / 130 150 / 150 Balance 3301 / 3301 519 / 519 Physical Exam Oriented: Normal Eyes: Normal Ear: Normal Nose: Normal Throat: Normal Respiratory: Normal Cardiovascular: Normal : Normal Auscultation: Bowel Sounds: Normal Tenderness: Diffuse and Mild Skin: Normal Musculoskeletal: Normal Psychiatric: Normal Mood Description: Calm and Appropriate Affect: Normal Speech Pattern: Clear and Appropriate Laboratory and Diagnostics Result Diagrams: 07/11/22 04:20 07/11/22 04:20 Labs: 07/10/22 00:24 Blood Blood Culture - Preliminary 07/10/22 00:16 Blood Blood Culture - Preliminary Laboratory WBC 7.3 X10^3/uL (3.6-10.0) 07/11/22 04:20 RBC 3.66 X10^6/uL (3.5-5.4) 07/11/22 04:20 Hgb 11.0 g/dL (12.0-16.0) L 07/11/22 04:20 Hct 32.0 % (36.0-47.0) L 07/11/22 04:20 MCV 87.6 fL (80.0-100.0) 07/11/22 04:20 MCH 30.2 pg (27.0-34.0) 07/11/22 04:20 MCHC 34.5 g/dL (33.0-35.0) 07/11/22 04:20 RDW 12.8 % (11.6-16.5) 07/11/22 04:20 Plt Count 115 X10^3/uL (150.0-450.0) L 07/11/22 04:20 MPV 10.6 fL (7.4-11.0) 07/11/22 04:20 Neut % (Auto) 78.0 % (42.0-75.0) H 07/11/22 04:20 Lymph % (Auto) 14.1 % (21.0-51.0) L 07/11/22 04:20 [place] % (Auto) 7.5 % (0.0-13.0) 07/11/22 04:20 Eos % (Auto) 0.2 % (0.9-2.9) L 07/11/22 04:20 Baso % (Auto) 0.2 % (0.2-1.0) 07/11/22 04:20 Neut # (Auto) 5.7 x10^3/uL (2.2-4.8) H 07/11/22 04:20 Lymph # (Auto) 1.0 X10^3/uL (1.3-2.9) L 07/11/22 04:20 [place] # (Auto) 0.6 x10^3/uL (0.3-0.8) 07/11/22 04:20 Eos # (Auto) 0.0 x10^3/uL (0.0-0.2) 07/11/22 04:20 Baso # (Auto) 0.0 X10^3/uL (0.0-0.1) 07/11/22 04:20 Absolute Nucleated RBC 0.0 /100WBC 07/11/22 04:20 Sodium 140 mmol/L (136-145) 07/11/22 04:20 Corrected Sodium TNP 07/11/22 04:20 Potassium 3.5 mmol/L (3.5-5.1) 07/11/22 04:20 Chloride 107 mmol/L (98-107) 07/11/22 04:20 Carbon Dioxide 27.9 mmol/L (21-32) 07/11/22 04:20 BUN 8 mg/dL (7-18) 07/11/22 04:20 Creatinine 0.69 mg/dL (0.55-1.02) 07/11/22 04:20 Est GFR (MDRD) Af Amer > 60 (>60) 07/11/22 04:20 Est GFR (MDRD) Non-Af > 60 (>60) 07/11/22 04:20 Glucose 105 mg/dL (65-99) H 07/11/22 04:20 Lactic Acid 0.4 mmol/L (0.4-2.0) 07/10/22 00:16 Calcium 9.5 mg/dL (8.5-10.1) 07/11/22 04:20 Corrected Calcium 10.4 mg/dL (8.5-10.1) H 07/11/22 04:20 Total Bilirubin 0.30 mg/dL (0.2-1.0) 07/11/22 04:20 AST 16 Units/L (15-37) 07/11/22 04:20 ALT 23 Units/L (12-78) 07/11/22 04:20 Alkaline Phosphatase 67 Units/L (46-116) 07/11/22 04:20 Total Protein 6.1 g/dL (6.4-8.2) L 07/11/22 04:20 Albumin 2.9 g/dL (3.4-5.0) L 07/11/22 04:20 Globulin 3.2 g/dL (2.5-4.5) 07/11/22 04:20 Albumin/Globulin Ratio 0.9 Ratio (1.1-2.1) L 07/11/22 04:20 Amylase 45 Units/L (25-115) 07/09/22 21:12 Lipase 199 Units/L (73-393) 07/09/22 21:12 Specimen Type Clean catch urine 07/09/22 21:17 Urine Color Pale yellow (YELLOW) 07/09/22 21:17 Urine Appearance Clear (CLEAR) 07/09/22 21:17 Urine pH 8.0 (5.0 - 8.0) 07/09/22 21:17 Ur Specific [place] 1.015 (1.000-1.030) 07/09/22 21:17 Urine Protein Negative (NEGATIVE) 07/09/22 21:17 Urine Glucose (UA) Negative (NEGATIVE) 07/09/22 21:17 Urine Ketones Negative (NEGATIVE) 07/09/22 21:17 Urine Blood 1+ (NEGATIVE) 07/09/22 21:17 Urine Nitrite Negative (NEGATIVE) 07/09/22 21:17 Urine Bilirubin Negative (NEGATIVE) 07/09/22 21:17 Urine Urobilinogen Normal (NORMAL) 07/09/22 21:17 Ur Leukocyte Esterase Negative (NEGATIVE) 07/09/22 21:17 Urine RBC 0-2 /HPF (0-3) 07/09/22 21:17 Urine WBC 0-2 /HPF (0-5) 07/09/22 21:17 Ur Squamous Epith Cells Moderate /HPF (NEGATIVE) 07/09/22 21:17 Urine Bacteria Trace /HPF (NEGATIVE) 07/09/22 21:17 Ur Culture Indicated? No/not indicated 07/09/22 21:17 SARS-CoV-2 (PCR) Negative (NEGATIVE) 07/09/22 21:17 Influenza Type A (PCR) Negative (NEGATIVE) 07/09/22 21:17 Influenza Type B (PCR) Negative (NEGATIVE) 07/09/22 21:17 RSV (PCR) Negative (NEGATIVE) 07/09/22 21:17 S. pyogenes (TEM-PCR) Not detected (NOT DETECT) 07/09/22 21:17 Plan (1) Acute diverticulitis: Status: Acute Plan: IVF, IV antibiotics. Pain and nausea management
[2022-07-11] MEDS: XANAX PO PRN (15:19)
[2022-07-12] MEDS: TYLENOL 325 MG TAB PO PRN ×3 (02:16→19:56)
[2022-07-12] MEDS: D5 1/2 NS 1,000 ML 1,000 ML IV SCH ×4 (02:18→17:16)
[2022-07-12] MEDS: XANAX PO PRN (03:25)
[2022-07-12] MEDS: FLAGYL IV PREMIX 500 MG BAG 500 MG/100 ML BAG IV SCH ×4 (03:25→21:05)
[2022-07-12 05:01] LABS: BASOPHILS % (AUTO) 0.6 % (0.2-1.0); HEMATOCRIT 32.3 % (36.0-47.0); HEMOGLOBIN 10.8 g/dL (12.0-16.0); LYMPHOCYTES # (AUTO) 0.9 X10^3/uL (1.3-2.9); LYMPHOCYTES % (AUTO) 22.5 % (21.0-51.0); MEAN CORPUSCULAR HEMOGLOBIN 29.2 pg (27.0-34.0); MEAN CORPUSCULAR HGB CONC 33.4 g/dL (33.0-35.0); MEAN CORPUSCULAR VOLUME 87.6 fL (80.0-100.0); MEAN PLATELET VOLUME 10.8 fL (7.4-11.0); MONOCYTES # (AUTO) 0.3 x10^3/uL (0.3-0.8); MONOCYTES % (AUTO) 8.1 % (0.0-13.0); NEUTROPHILS # (AUTO) 2.8 x10^3/uL (2.2-4.8); NEUTROPHILS % (AUTO) 67.8 % (42.0-75.0); RED BLOOD COUNT 3.68 X10^6/uL (3.5-5.4); RED CELL DISTRIBUTION WIDTH 12.6 % (11.6-16.5); WHITE BLOOD COUNT 4.2 X10^3/uL (3.6-10.0)
[2022-07-12 05:09] LABS: ALANINE AMINOTRANSFERASE 19 Units/L (12-78); ALBUMIN 2.7 g/dL (3.4-5.0); ALKALINE PHOSPHATASE 63 Units/L (46-116); ASPARTATE AMINO TRANSFERASE 12 Units/L (15-37); BLOOD UREA NITROGEN 5 mg/dL (7-18); CALCIUM 9.4 mg/dL (8.5-10.1); CARBON DIOXIDE 27.8 mmol/L (21-32); CHLORIDE 109 mmol/L (98-107); COR CA(FOR HYPOALB) 10.4 mg/dL (8.5-10.1); CREATININE 0.67 mg/dL (0.55-1.02); SODIUM 143 mmol/L (136-145); TOTAL PROTEIN 5.7 g/dL (6.4-8.2); eGFR NON BLACK RACES > 60 (>60)
[2022-07-12] MEDS: MEFOXIN IV SCH ×3 (05:36→22:22)
[2022-07-12] MEDS: SYNTHROID 88 mcg TAB PO SCH (05:36)
[2022-07-12] MEDS: NS IV SCH ×3 (05:36→22:22)
[2022-07-12] MEDS ORDERED: POTASSIUM CHL 40 MEQ/NS 0.45% 500 ML IV PRN (05:54)
[2022-07-12] MEDS ORDERED: K-RIDER 10 MEQ/NS 100 ML 10 MEQ/100 ML BAG IV PRN (05:54)
[2022-07-12] MEDS ORDERED: KLOR-CON PO PRN (05:54)
[2022-07-12] MEDS ORDERED: MICRO K EXTEN CAP 10 MEQ PO PRN (05:54)
[2022-07-12] MEDS ORDERED: POTASSIUM CHL 60 MEQ/NS 0.45% 500 ML IV PRN (05:54)
[2022-07-12] MEDS ORDERED: MAGNESIUM SULFATE 1 GRAM/100 mL PREMIX 1 G/100 ML BAG IV PRN (05:54)
[2022-07-12] MEDS ORDERED: POTASSIUM CHLORIDE LIQ 20 MEQ UDC PO PRN (05:54)
[2022-07-12] MEDS ORDERED: SYNTHROID 88 mcg TAB PO SCH (11:00)
[2022-07-12] MEDS: XANAX PO SCH ×3 (11:16→21:04)
[2022-07-12] MEDS: CELEBREX PO SCH (11:17)
[2022-07-12] MEDS: LOVENOX INJ 40 MG SYR SC SCH ×3 (11:18→18:21)
[2022-07-12] MEDS: COLACE CAP 100 MG PO SCH ×2 (11:18→21:03)
[2022-07-12] MEDS ORDERED: ZANAFLEX PO SCH (21:00)
[2022-07-12] MEDS: LIPITOR TAB 10 MG PO SCH (21:03)
[2022-07-12] MEDS: ZOLOFT PO SCH (21:03)
[2022-07-13] MEDS: D5 1/2 NS 1,000 ML 1,000 ML IV SCH ×5 (00:13→20:53)
[2022-07-13] MEDS: FLAGYL IV PREMIX 500 MG BAG 500 MG/100 ML BAG IV SCH ×4 (02:03→20:55)
[2022-07-13 05:14] LABS: BASOPHILS % (AUTO) 0.2 % (0.2-1.0); EOSINOPHILS # (AUTO) 0.1 x10^3/uL (0.0-0.2); EOSINOPHILS % (AUTO) 1.6 % (0.9-2.9); HEMATOCRIT 35.5 % (36.0-47.0); HEMOGLOBIN 11.9 g/dL (12.0-16.0); LYMPHOCYTES # (AUTO) 1.3 X10^3/uL (1.3-2.9); LYMPHOCYTES % (AUTO) 32.3 % (21.0-51.0); MEAN CORPUSCULAR HEMOGLOBIN 29.2 pg (27.0-34.0); MEAN CORPUSCULAR HGB CONC 33.6 g/dL (33.0-35.0); MEAN CORPUSCULAR VOLUME 86.9 fL (80.0-100.0); MEAN PLATELET VOLUME 10.6 fL (7.4-11.0); MONOCYTES # (AUTO) 0.4 x10^3/uL (0.3-0.8); MONOCYTES % (AUTO) 9.9 % (0.0-13.0); NEUTROPHILS # (AUTO) 2.2 x10^3/uL (2.2-4.8); RED BLOOD COUNT 4.09 X10^6/uL (3.5-5.4); RED CELL DISTRIBUTION WIDTH 12.4 % (11.6-16.5)
[2022-07-13 05:21] LABS: ALANINE AMINOTRANSFERASE 18 Units/L (12-78); ALBUMIN 3.1 g/dL (3.4-5.0); ALKALINE PHOSPHATASE 71 Units/L (46-116); ASPARTATE AMINO TRANSFERASE 14 Units/L (15-37); BLOOD UREA NITROGEN 4 mg/dL (7-18); CALCIUM 9.6 mg/dL (8.5-10.1); CARBON DIOXIDE 28.1 mmol/L (21-32); CHLORIDE 108 mmol/L (98-107); COR CA(FOR HYPOALB) 10.3 mg/dL (8.5-10.1); CREATININE 0.62 mg/dL (0.55-1.02); SODIUM 143 mmol/L (136-145); TOTAL PROTEIN 6.1 g/dL (6.4-8.2); eGFR NON BLACK RACES > 60 (>60)
[2022-07-13] MEDS: SYNTHROID 88 mcg TAB PO SCH (05:33)
[2022-07-13] MEDS: NS IV SCH ×3 (05:33→21:01)
[2022-07-13] MEDS: XANAX PO SCH ×3 (05:33→21:00)
[2022-07-13] MEDS: MEFOXIN IV SCH ×3 (05:33→21:01)
[2022-07-13] MEDS: K-DUR TAB 20 MEQ PO PRN (05:46)
[2022-07-13] MEDS: COLACE CAP 100 MG PO SCH ×2 (09:09→20:55)
[2022-07-13] MEDS: CELEBREX PO SCH (09:10)
[2022-07-13] MEDS: LOVENOX INJ 40 MG SYR SC SCH (09:11)
--- NOTE | 2022-07-13 09:33 | PCM.PROG ---
Progress Note - Progress Note for Day of Date of Exam: 07/12/22 - Subjective Subjective: IS A 61 YEAR OLD PATIENT OF OURS. SHE WAS ADMITTED ON 07/10/22 OBSERVATION STATUS FOR TREATMENT OF ACUTE ASCENDING COLON DIVERTICULITIS AND GASTROENTERITIS WITH IMPENDING DIARRHEA. HER PMH INCLUDES: ANXIETY, DEPRESSION, DYSLIPIDEMIA, HYPOTHYROIDISM, AND HYSTERECTOMY. TODAY, SHE IS ALERT AND ORIENTED, LYING IN BED ON MORNING ROUNDS. SHE CONTINUES TO COMPLAIN OF DIFFUSE ABDOMINAL PAIN THIS MORNING. SHE REPORTS SLIGHT IMPROVEMENT IN SYMPTOMS SINCE ADMISSION. SHE DENIES DIARRHEA THIS MORNING, BUT DOES COMPLAIN OF SOME NAUSEA AND HEADACHE. SHE HAS BEEN TOLERATING A CLEAR LIQUID DIET WELL. ON EXAMINATION, HEART IS REGULAR IN RATE AND RHYTHM. BILATERAL LUNGS ARE CLEAR TO AUSCULTATION. ABDOMEN IS ROUND, SOFT, AND NOTED WITH DIFFUSE TENDERNESS TO PALPATION. HYPERACTIVE BOWEL SOUNDS ARE NOTED IN ALL QUADRANTS. NO UPPER OR LOWER EXTREMITY EDEMA NOTED. HER VITALS THIS MORNING ARE: 98.1-60-20-98%-122/71. LABS WERE OBTAINED. WBC 4.2, RBC 3.68, HGB 10.8, HCT 32.3, PLT COUNT 115, SODIUM 143, POTASSIUM 3.1, CHLORIDE 109, BUN 5, CREATININE 0.67, GLUCOSE 103, CALCIUM 9.4, AST 12, ALT 19, ALK PHOS 63, TOTAL PROTEIN 5.7, ALBUMIN 2.7. BLOOD CULTURES ARE PENDING. SHE IS CURRENTLY RECEIVING D51/2 NS AT 125 ML/HR, FLAGYL 500MG IV Q6H, CEFOXITIN 1G IV Q8H, LOVENOX 40MG SC DAILY, PHENERGAN 12.5MG IM Q4H PRN, ZOFRAN 4MG IV Q8H PRN, DEMEROL 50MG IV Q4H PRN, COLACE 100MG BID, THE POTASSIUM AND MAGNESIUM PROTOCOLS. HER HOME MEDICATIONS OF ALPRAZOLAM, LIPITOR, CELEBREX, SYNTHROID, ZOLOFT, AND ZANAFLEX WERE ALSO RESUMED. WE WILL CONTINUE WITH CURRENT PLAN OF CARE TODAY. OTHERWISE, WE WILL FOLLOW-UP WITH AM LABS AND CONTINUE TO MONITOR. TIME SPENT ON CLINICAL ASSESSMENT, REVIWING LABS AND IMAGING, DECISION MAKING, AND DOCUMENTATION GREATER THAN 45 MINUTES. - Past Medical Family Social History Past Med/Fam/Surg Hx: No changes since H&P Allergies: Allergies ciprofloxacin [From Cipro] Allergy (Verified 09/17/17 13:23) codeine Allergy (Verified 09/17/17 11:45) hydromorphone [From Dilaudid] Allergy (Verified 09/17/17 11:45) morphine Allergy (Verified 09/17/17 11:45) - Review of Systems ROS: No change since H&P - Vital Signs and I&O's Vital Signs: Temperature 97.5 F Pulse Rate [Left] 58 Pulse Rate 117 Respiratory Rate 18 Blood Pressure [Right Arm] 126/60 Blood Pressure [Left Arm] 103/62 Blood Pressure [Left Arm] 89/50 Blood Pressure 114/69 O2 Sat by Pulse Oximetry 98 Intake and Output: Intake & Output 07/10/22 07/11/22 07/12/22 07/13/22 10:59 11:59 11:59 11:59 Intake Total 3389 / 3389 4930 / 4930 Output Total Balance 3389 / 3389 4930 / 4930 - Physical Exam Oriented: Normal Eyes: Normal Ear: Normal Nose: Normal Throat: Normal Respiratory: Normal Cardiovascular: Normal : Normal Auscultation: Bowel Sounds: Normal Palpation: Normal Tenderness: Diffuse, Mild. negative: Rebound, Guarding Skin: Normal Musculoskeletal: Normal Psychiatric: Normal Mood Description: Calm, Appropriate Affect: Normal Speech Pattern: Clear, Appropriate - Laboratory and Diagnostics Result Diagrams: 07/13/22 04:44 07/13/22 04:44 Labs: 07/10/22 00:24 Blood Blood Culture - Preliminary 07/10/22 00:16 Blood Blood Culture - Preliminary Laboratory WBC 4.0 X10^3/uL (3.6-10.0) 07/13/22 04:44 RBC 4.09 X10^6/uL (3.5-5.4) 07/13/22 04:44 Hgb 11.9 g/dL (12.0-16.0) L 07/13/22 04:44 Hct 35.5 % (36.0-47.0) L 07/13/22 04:44 MCV 86.9 fL (80.0-100.0) 07/13/22 04:44 MCH 29.2 pg (27.0-34.0) 07/13/22 04:44 MCHC 33.6 g/dL (33.0-35.0) 07/13/22 04:44 RDW 12.4 % (11.6-16.5) 07/13/22 04:44 Plt Count 143 X10^3/uL (150.0-450.0) L 07/13/22 04:44 MPV 10.6 fL (7.4-11.0) 07/13/22 04:44 Neut % (Auto) 56.0 % (42.0-75.0) 07/13/22 04:44 Lymph % (Auto) 32.3 % (21.0-51.0) 07/13/22 04:44 [place] % (Auto) 9.9 % (0.0-13.0) 07/13/22 04:44 Eos % (Auto) 1.6 % (0.9-2.9) 07/13/22 04:44 Baso % (Auto) 0.2 % (0.2-1.0) 07/13/22 04:44 Neut # (Auto) 2.2 x10^3/uL (2.2-4.8) 07/13/22 04:44 Lymph # (Auto) 1.3 X10^3/uL (1.3-2.9) 07/13/22 04:44 [place] # (Auto) 0.4 x10^3/uL (0.3-0.8) 07/13/22 04:44 Eos # (Auto) 0.1 x10^3/uL (0.0-0.2) 07/13/22 04:44 Baso # (Auto) 0.0 X10^3/uL (0.0-0.1) 07/13/22 04:44 Absolute Nucleated RBC 0.1 /100WBC 07/13/22 04:44 Sodium 143 mmol/L (136-145) 07/13/22 04:44 Corrected Sodium TNP 07/13/22 04:44 Potassium 3.5 mmol/L (3.5-5.1) 07/13/22 04:44 Chloride 108 mmol/L (98-107) H 07/13/22 04:44 Carbon Dioxide 28.1 mmol/L (21-32) 07/13/22 04:44 BUN 4 mg/dL (7-18) L 07/13/22 04:44 Creatinine 0.62 mg/dL (0.55-1.02) 07/13/22 04:44 Est GFR (MDRD) Af Amer > 60 (>60) 07/13/22 04:44 Est GFR (MDRD) Non-Af > 60 (>60) 07/13/22 04:44 Glucose 98 mg/dL (65-99) 07/13/22 04:44 Lactic Acid 0.4 mmol/L (0.4-2.0) 07/10/22 00:16 Calcium 9.6 mg/dL (8.5-10.1) 07/13/22 04:44 Corrected Calcium 10.3 mg/dL (8.5-10.1) H 07/13/22 04:44 Magnesium 2.1 mg/dL (2.0-2.9) 07/12/22 04:20 Total Bilirubin 0.30 mg/dL (0.2-1.0) 07/13/22 04:44 AST 14 Units/L (15-37) L 07/13/22 04:44 ALT 18 Units/L (12-78) 07/13/22 04:44 Alkaline Phosphatase 71 Units/L (46-116) 07/13/22 04:44 Total Protein 6.1 g/dL (6.4-8.2) L 07/13/22 04:44 Albumin 3.1 g/dL (3.4-5.0) L 07/13/22 04:44 Globulin 3.0 g/dL (2.5-4.5) 07/13/22 04:44 Albumin/Globulin Ratio 1.0 Ratio (1.1-2.1) L 07/13/22 04:44 Amylase 45 Units/L (25-115) 07/09/22 21:12 Lipase 199 Units/L (73-393) 07/09/22 21:12 Specimen Type Clean catch urine 07/09/22 21:17 Urine Color Pale yellow (YELLOW) 07/09/22 21:17 Urine Appearance Clear (CLEAR) 07/09/22 21:17 Urine pH 8.0 (5.0 - 8.0) 07/09/22 21:17 Ur Specific [place] 1.015 (1.000-1.030) 07/09/22 21:17 Urine Protein Negative (NEGATIVE) 07/09/22 21:17 Urine Glucose (UA) Negative (NEGATIVE) 07/09/22 21:17 Urine Ketones Negative (NEGATIVE) 07/09/22 21:17 Urine Blood 1+ (NEGATIVE) 07/09/22 21:17 Urine Nitrite Negative (NEGATIVE) 07/09/22 21:17 Urine Bilirubin Negative (NEGATIVE) 07/09/22 21:17 Urine Urobilinogen Normal (NORMAL) 07/09/22 21:17 Ur Leukocyte Esterase Negative (NEGATIVE) 07/09/22 21:17 Urine RBC 0-2 /HPF (0-3) 07/09/22 21:17 Urine WBC 0-2 /HPF (0-5) 07/09/22 21:17 Ur Squamous Epith Cells Moderate /HPF (NEGATIVE) 07/09/22 21:17 Urine Bacteria Trace /HPF (NEGATIVE) 07/09/22 21:17 Ur Culture Indicated? No/not indicated 07/09/22 21:17 SARS-CoV-2 (PCR) Negative (NEGATIVE) 07/09/22 21:17 Influenza Type A (PCR) Negative (NEGATIVE) 07/09/22 21:17 Influenza Type B (PCR) Negative (NEGATIVE) 07/09/22 21:17 RSV (PCR) Negative (NEGATIVE) 07/09/22 21:17 S. pyogenes (TEM-PCR) Not detected (NOT DETECT) 07/09/22 21:17 - Plan (1) Acute diverticulitis Status: Acute Plan: D51/2 NS AT 125 ML/HR, FLAGYL 500MG IV Q6H, CEFOXITIN 1G IV Q8H, LOVENOX 40MG SC DAILY, PHENERGAN 12.5MG IM Q4H PRN, ZOFRAN 4MG IV Q8H PRN, DEMEROL 50MG IV Q4H PRN, COLACE 100MG BID, THE POTASSIUM AND MAGNESIUM PROTOCOLS. CONTINUE HOME MEDS (2) Hypokalemia Status: Acute (3) Nausea Status: Acute (4) Headache Status: Acute Qualifiers: Headache type: unspecified Headache chronicity pattern: acute headache Intractability: not intractable Qualified Code(s): R51.9 - Headache, unspecified (5) Hyperlipidemia Status: Chronic Qualifiers: Hyperlipidemia type: mixed hyperlipidemia Qualified Code(s): E78.2 - Mixed hyperlipidemia (6) Hypothyroidism Status: Chronic Qualifiers: Hypothyroidism type: acquired Qualified Code(s): E03.9 - Hypothyroidism, unspecified (7) Generalized anxiety disorder Status: Chronic
[2022-07-13] MEDS: TYLENOL 325 MG TAB PO PRN (16:34)
--- NOTE | 2022-07-13 17:23 | CT ---
HISTORYNECK PAINSTUDYCERVICAL SPINE W/O CONCOMPARISONMRI from January 24, 2018TECHNIQUEAxial non-contrast images of the cervical spine with coronal and sagittal reformats.Radiation dose: 355.65 mGy-cm total DLPFINDINGSVertebral body heights are maintained with normal alignment.Anterior spinal fusion hardware in place at C5-C6.Multilevel mild degenerative disc and facet degenerative joint changes.No significant central canal stenosis or neural foraminal narrowing.Incidental posterior fusion defect at C1.No fracture identified.Posterior elements are intact without jumped or perched facets.Prevertebral soft tissues are normal.Atlantoaxial articulation is intact.Soft tissues are unremarkable.Lung apices are unremarkable.IMPRESSION1. No acute abnormality.2. Mild degenerative disc and facet degenerative joint changes.3. Status post anterior spinal fusion hardware placement at C5-C6.Electronically signed by: Jose Jones (Jul 13, 2022 17:21:48)
--- NOTE | 2022-07-13 20:38 | CT ---
HISTORYINTRACTABLE HEADACHESTUDYBRAIN W/O [id number]/22/2022 MRITECHNIQUEMultiple axial images of the head without contrast. Dose reduction techniques including Automated Exposure Control (AEC) and adjustment of mA and kV were utilized.Contrast: NoneFINDINGSBRAIN PARENCHYMA: No acute hemorrhage, infarct, mass, or mass effect.Kelly-white differentiation is maintained.Scattered white matter chronic small vessel ischemic changes.VENTRICLES/EXTRA-AXIAL SPACES: Unremarkable size and configuration. No hydrocephalus or extra-axial fluid collections.EXTRACRANIAL STRUCTURES:Unremarkable bones and soft tissues. Visualized paranasal sinuses and mastoids are clear.IMPRESSIONNo acute intracranial findings with atrophy and chronic small vessel ischemic change. MRI is more sensitive for acute infarctElectronically signed by: Haile Antoine (Jul 13, 2022 20:35:45)
[2022-07-13] MEDS: ZOLOFT PO SCH (20:55)
[2022-07-13] MEDS: LIPITOR TAB 10 MG PO SCH (20:55)
[2022-07-14] MEDS: FLAGYL IV PREMIX 500 MG BAG 500 MG/100 ML BAG IV SCH ×4 (02:31→21:15)
[2022-07-14] MEDS: D5 1/2 NS 1,000 ML 1,000 ML IV SCH ×4 (02:31→21:19)
[2022-07-14] MEDS: MEFOXIN IV SCH ×3 (05:13→22:30)
[2022-07-14] MEDS: NS IV SCH ×3 (05:13→22:30)
[2022-07-14] MEDS: XANAX PO SCH ×3 (05:14→21:17)
[2022-07-14] MEDS: SYNTHROID 88 mcg TAB PO SCH (05:37)
[2022-07-14 06:44] LABS: BASOPHILS % (AUTO) 0.8 % (0.2-1.0); EOSINOPHILS # (AUTO) 0.1 x10^3/uL (0.0-0.2); HEMATOCRIT 33.1 % (36.0-47.0); HEMOGLOBIN 11.2 g/dL (12.0-16.0); LYMPHOCYTES # (AUTO) 1.1 X10^3/uL (1.3-2.9); LYMPHOCYTES % (AUTO) 32.6 % (21.0-51.0); MEAN CORPUSCULAR HEMOGLOBIN 29.3 pg (27.0-34.0); MEAN CORPUSCULAR VOLUME 86.2 fL (80.0-100.0); MEAN PLATELET VOLUME 10.6 fL (7.4-11.0); MONOCYTES # (AUTO) 0.4 x10^3/uL (0.3-0.8); NEUTROPHILS # (AUTO) 1.8 x10^3/uL (2.2-4.8); NEUTROPHILS % (AUTO) 53.6 % (42.0-75.0); RED BLOOD COUNT 3.84 X10^6/uL (3.5-5.4); RED CELL DISTRIBUTION WIDTH 12.4 % (11.6-16.5); WHITE BLOOD COUNT 3.3 X10^3/uL (3.6-10.0)
[2022-07-14 07:09] LABS: ALANINE AMINOTRANSFERASE 15 Units/L (12-78); ALBUMIN 2.9 g/dL (3.4-5.0); ALKALINE PHOSPHATASE 72 Units/L (46-116); ASPARTATE AMINO TRANSFERASE 14 Units/L (15-37); BLOOD UREA NITROGEN 8 mg/dL (7-18); CALCIUM 9.6 mg/dL (8.5-10.1); CARBON DIOXIDE 26.4 mmol/L (21-32); CHLORIDE 109 mmol/L (98-107); COR CA(FOR HYPOALB) 10.5 mg/dL (8.5-10.1); CREATININE 0.76 mg/dL (0.55-1.02); SODIUM 144 mmol/L (136-145); TOTAL PROTEIN 5.9 g/dL (6.4-8.2); eGFR NON BLACK RACES > 60 (>60)
[2022-07-14] MEDS: CELEBREX PO SCH (10:10)
[2022-07-14] MEDS: COLACE CAP 100 MG PO SCH ×2 (10:11→21:16)
[2022-07-14] MEDS: LOVENOX INJ 40 MG SYR SC SCH (10:12)
[2022-07-14] MEDS: TYLENOL 325 MG TAB PO PRN (11:34)
[2022-07-14] MEDS: ZOLOFT PO SCH (21:16)
[2022-07-14] MEDS: LIPITOR TAB 10 MG PO SCH (21:16)
[2022-07-15] MEDS: D5 1/2 NS 1,000 ML 1,000 ML IV SCH ×3 (02:04→08:26)
[2022-07-15] MEDS: FLAGYL IV PREMIX 500 MG BAG 500 MG/100 ML BAG IV SCH ×2 (02:06→08:26)
[2022-07-15] MEDS: XANAX PO SCH (05:29)
[2022-07-15] MEDS: SYNTHROID 88 mcg TAB PO SCH (05:29)
[2022-07-15] MEDS: NS IV SCH (05:30)
[2022-07-15] MEDS: MEFOXIN IV SCH (05:30)
[2022-07-15 06:01] LABS: BASOPHILS % (AUTO) 0.5 % (0.2-1.0); EOSINOPHILS % (AUTO) 1.5 % (0.9-2.9); HEMOGLOBIN 11.5 g/dL (12.0-16.0); MEAN CORPUSCULAR HEMOGLOBIN 29.2 pg (27.0-34.0); MEAN CORPUSCULAR HGB CONC 33.9 g/dL (33.0-35.0); MEAN CORPUSCULAR VOLUME 86.4 fL (80.0-100.0); MEAN PLATELET VOLUME 10.1 fL (7.4-11.0); MONOCYTES # (AUTO) 0.3 x10^3/uL (0.3-0.8); MONOCYTES % (AUTO) 10.6 % (0.0-13.0); NEUTROPHILS # (AUTO) 1.8 x10^3/uL (2.2-4.8); NEUTROPHILS % (AUTO) 57.4 % (42.0-75.0); RED BLOOD COUNT 3.93 X10^6/uL (3.5-5.4); RED CELL DISTRIBUTION WIDTH 12.5 % (11.6-16.5); WHITE BLOOD COUNT 3.2 X10^3/uL (3.6-10.0)
[2022-07-15 06:12] LABS: ALANINE AMINOTRANSFERASE 18 Units/L (12-78); ALBUMIN 2.9 g/dL (3.4-5.0); ALKALINE PHOSPHATASE 66 Units/L (46-116); ASPARTATE AMINO TRANSFERASE 18 Units/L (15-37); BLOOD UREA NITROGEN 5 mg/dL (7-18); CALCIUM 9.7 mg/dL (8.5-10.1); CARBON DIOXIDE 28.6 mmol/L (21-32); CHLORIDE 108 mmol/L (98-107); COR CA(FOR HYPOALB) 10.6 mg/dL (8.5-10.1); COR NA(FOR HYPERGLY) 144 mmol/L (136-145); CREATININE 0.61 mg/dL (0.55-1.02); SODIUM 144 mmol/L (136-145); eGFR NON BLACK RACES > 60 (>60)
[2022-07-15] MEDS: CELEBREX PO SCH (08:25)
[2022-07-15] MEDS: COLACE CAP 100 MG PO SCH (08:26)
[2022-07-15] MEDS: K-DUR TAB 20 MEQ PO PRN (08:26)
[2022-07-15] MEDS: LOVENOX INJ 40 MG SYR SC SCH (08:27)
[2022-07-15] MEDS: TYLENOL 325 MG TAB PO PRN (08:33)
[2022-07-15 09:00] VITALS: BP 119/74
== END 2022-07-15 11:05 | disposition home or self-care (01) | DRG 392 ==
LOC: MED/SURG 20:35 → ER 20:35 → MED/SURG 07-10 01:35
PROVIDERS: ADMIT Family Medicine; ATTEND Internal Medicine
DX: F41.8 Other specified anxiety disorders; E87.6 Hypokalemia; R51.9 Headache, unspecified; E78.2 Mixed hyperlipidemia; K57.32 Diverticulitis of large intestine without perforation or abscess without bleeding; K52.89 Other specified noninfective gastroenteritis and colitis; Z20.822 Contact with and (suspected) exposure to COVID-19; K44.9 Diaphragmatic hernia without obstruction or gangrene; E03.8 Other specified hypothyroidism; R10.84 Generalized abdominal pain; R19.7 Diarrhea, unspecified; R79.89 Other specified abnormal findings of blood chemistry

== ENCOUNTER 2024-05-05 12:57 | Observation (INO) ==
[2024-05-05 14:52] LABS: BASOPHILS # (AUTO) 0.1 X10^3/uL (0.0-0.1); BASOPHILS % (AUTO) 0.6 % (0.2-1.0); HEMATOCRIT 38.4 % (36.0-47.0); LYMPHOCYTES # (AUTO) 0.9 X10^3/uL (1.3-2.9); LYMPHOCYTES % (AUTO) 9.4 % (21.0-51.0); MEAN CORPUSCULAR HGB CONC 33.8 g/dL (33.0-35.0); MEAN CORPUSCULAR VOLUME 88.6 fL (80.0-100.0); MEAN PLATELET VOLUME 9.9 fL (7.4-11.0); MONOCYTES # (AUTO) 1.3 x10^3/uL (0.3-0.8); MONOCYTES % (AUTO) 13.2 % (0.0-13.0); NEUTROPHILS # (AUTO) 7.5 x10^3/uL (2.2-4.8); NEUTROPHILS % (AUTO) 76.8 % (42.0-75.0); PLATELET COUNT 157 X10^3/uL (150.0-450.0); RED BLOOD COUNT 4.33 X10^6/uL (3.5-5.4); RED CELL DISTRIBUTION WIDTH 12.8 % (11.6-16.5); WHITE BLOOD COUNT 9.8 X10^3/uL (3.6-10.0)
[2024-05-05 15:03] LABS: ALANINE AMINOTRANSFERASE 121 Units/L (12-78); ALBUMIN 3.5 g/dL (3.4-5.0); ALKALINE PHOSPHATASE 114 Units/L (46-116); ASPARTATE AMINO TRANSFERASE 149 Units/L (15-37); BLOOD UREA NITROGEN 13 mg/dL (7-18); CALCIUM 10.6 mg/dL (8.5-10.1); CARBON DIOXIDE 30.9 mmol/L (21-32); CHLORIDE 98 mmol/L (98-107); CREATININE 0.94 mg/dL (0.55-1.02); GLUCOSE 101 mg/dL (65-99); POTASSIUM 4.2 mmol/L (3.5-5.1); SODIUM 138 mmol/L (136-145); eGFR NON BLACK RACES > 60 (>60)
--- NOTE | 2024-05-05 15:19 | CT ---
EXAM:CT CERVICAL SPINE WITHOUT CONTRASTHISTORY:Pt fell on , Since fall, pt c/o left neck, left shoulder, left arm and left hand pain, low back pain. Spouse states since fall pt has had significant decrease in ability to perform I/ADLs, walk, decrease in ROM; .COMPARISON:None.TECHNIQUE:Axial CT images were obtained through the cervical spine without contrast. Coronal and sagittal reformations were post processed.All CT scans at this facility use dose modulation, iterative reconstruction, and/or weight based dosing when appropriate to reduce radiation dose to as low as reasonably achievable.FINDINGS:C-SPINE: Previous cervical fusion hardware seen at C5-6. Multilevel degenerative changes and facet arthropathy. No acute fracture or malalignment.SURROUNDING SOFT TISSUES: Within normal limits.LUNG APICES: Within normal limits.IMPRESSION:No evidence of acute findings on cervical spine exam.THIS IS AN ELECTRONICALLY VERIFIED FINAL REPORT05/05/2024 3:16 PM - Electronically signed by Hira Smith MD
--- NOTE | 2024-05-05 15:19 | CT ---
EXAM:CT HEAD WITHOUT CONTRASTHISTORY:Pt fell on , Since fall, pt c/o left neck, left shoulder, left arm and left hand pain, low back pain. Spouse states since fall pt has had significant decrease in ability to perform I/ADLs, walk, decrease in ROM ;COMPARISON:None.TECHNIQUE:Axial CT images were obtained through the brain without contrast.All CT scans at this facility use dose modulation, iterative reconstruction, and/or weight based dosing when appropriate to reduce radiation dose to as low as reasonably achievable.FINDINGS:BRAIN: There is mild diffuse atrophy with proportionate enlargement of the cerebral sulci and ventricular system. Decreased attenuation in the periventricular white matter is compatible with but not specific for chronic small vessel ischemic changes. No evidence of acute infarct intra or extraaxial hemorrhage mass effect or hydrocephalus.CALVARIUM: NormalADDITIONAL FINDINGS: Gas fluid level left maxillary sinus. Mild mucosal thickening right maxillary sinusIMPRESSION:No evidence of acute intracranial process.THIS IS AN ELECTRONICALLY VERIFIED FINAL REPORT05/05/2024 3:15 PM - Electronically signed by Hira Smith MD
--- NOTE | 2024-05-05 15:28 | DR.EXTPAIN ---
HPI Time seen Time Seen by Provider: 05/05/24 13:59 PCP Primary Care Physician: robert HPI Comment HPI Comment: Patient with history of dementia having worsening mental status gradually. Patient had a fall last and has been having left arm and hand pain. There was no obvious sign of injury after fall, per spouse. Patient has been unable to perform ADLs. Patient has had some increased confusion. Complaint/Symptoms Chief Complaint:: Pt fell on , was home with 6 year old grandson at the time of fall. Since fall, pt c/o left neck, left shoulder, left arm and left hand pain, low back pain. Spouse states since fall pt has had significant decrease in ability to perform I/ADLs, walk, decrease in ROM and mobility of left arm and left hand. Spouse denies any obvious injury, abrasion, bruising, lacerations or site of bleeding. Self Treatment fo Chief Complaint: took a xanax 2 mg approx 1 hour ago, no pain med today COVID-19 Coronavirus risk:travel/contact w/high risk person: No Has patient experienced Coronavirus symptoms: No Source History Provided: Significant Other Mode of arrival Mode of Arrival: Wheelchair Timing Onset of Chief Complaint: 05/03/24 PMH PMH Past Medical History: Yes Past Medical History: Anxiety, Depression, Dyslipidemia and Hypothyroidism Past Medical History Comment: memory worsening r/t anxiety per spouse, no longer taking medication for memory Past Surgical History: Yes Surgical History: LIGHTOUT EXAMINER Surgery, Hysterectomy, Ortho Surgery and Other Past Surgical History Comment: neck and back surgery, shoulder surgery Family History History of Family Medical Conditions: Yes Family Medical History: Diabetes Mellitus, Cancer, Coronary Artery Disease and Hypertension Social History Does any household member use tobacco: No Alcohol Use: Rarely Do you use any recreational Drugs:: No Lives With: Spouse Lives Where: Home Travel Risk Coronavirus risk:travel/contact w/high risk person: No Has patient experienced Coronavirus symptoms: No Infectious screening In the last 2 months have you had wt loss of >10#?: NO Have you had fever, night sweats or hemotysis?: No Have you traveled outside the country in the last 6 months?: No Isolation: Standard ROS Review of Systems Constitutional: See HPI Eyes: No Symptoms Reported ENTM: No Symptoms Reported Respiratoy: No Symptoms Reported Cardiovascular: No Symptoms Reported Gastrointestinal/Abdominal: No Symptoms Reported Genitourinary: No Symptoms Reported Neurological: See HPI; negative Headache, Paresthesia, Seizure, Tingling, Weakness or Dizziness Musculoskeletal: No Symptoms Reported Integumentary: No Symptoms Reported Hematologic/Lymphatic: No Symptoms Reported Endocrine: No Symptoms Reported Psychiatric: No Symptoms Reported All Other Systems: Reviewed and Negative PE Vital Signs Vitals: Vital Signs Temperature 98.3 F Pulse Rate 85 Respiratory Rate 14 Blood Pressure 109/61 O2 Sat by Pulse Oximetry 99 General Limitations: No Limitations General Appearance: Alert and In No Apparent Distress (Pleasantly demented. Some confusion) Head Head Exam: Normal Inspection Eyes Eye exam: Normal Appearance ENT ENT Exam: Normal Exam Neck Neck Exam: Normal Inspection Chest Chest Inspection: Normal Inspection Respiratory Respiratory Exam: Normal Lung Sounds Bilat Cardiovascular Cardiovascular Exam: Regular Rate and Normal Rhythm Abdominal Exam Abdominal Exam: Normal Inspection, Normal Bowel Sounds and Soft Extremities Extremities Exam: Other (Patient guarding left shoulder. Decreased range of motion. Exam limited due to patient compliance and pain.) Back Back Exam: Normal Inspection Neurological Neurological Exam: Alert, CN II-XII Intact, Reflexes Normal and Other (Confused. Pleasantly demented); negative Motor Sensory Deficit Psychiatric Psychiatric Exam: Normal Affect and Normal Mood Skin Skin Exam: Warm, Dry, Intact and Normal Color COURSE Consultation Called: 16:08 Consultation Comments: Discussed case with Dr. Sharma. Due to patient's failure to thrive, history of falls and dementia with worsening baseline, he is agreeable to admit for observation. [facility]OR Labs Reviewed 05/05/24 14:35 05/05/24 14:35 Laboratory: WBC 9.8 X10^3/uL (3.6-10.0) 05/05/24 14:35 RBC 4.33 X10^6/uL (3.5-5.4) 05/05/24 14:35 Hgb 13.0 g/dL (12.0-16.0) 05/05/24 14:35 Hct 38.4 % (36.0-47.0) 05/05/24 14:35 MCV 88.6 fL (80.0-100.0) 05/05/24 14:35 MCH 30.0 pg (27.0-34.0) 05/05/24 14:35 MCHC 33.8 g/dL (33.0-35.0) 05/05/24 14:35 RDW 12.8 % (11.6-16.5) 05/05/24 14:35 Plt Count 157 X10^3/uL (150.0-450.0) 05/05/24 14:35 MPV 9.9 fL (7.4-11.0) 05/05/24 14:35 Neut % (Auto) 76.8 % (42.0-75.0) H 05/05/24 14:35 Lymph % (Auto) 9.4 % (21.0-51.0) L 05/05/24 14:35 [place] % (Auto) 13.2 % (0.0-13.0) H 05/05/24 14:35 Eos % (Auto) 0.0 % (0.9-2.9) L 05/05/24 14:35 Baso % (Auto) 0.6 % (0.2-1.0) 05/05/24 14:35 Neut # (Auto) 7.5 x10^3/uL (2.2-4.8) H 05/05/24 14:35 Lymph # (Auto) 0.9 X10^3/uL (1.3-2.9) L 05/05/24 14:35 [place] # (Auto) 1.3 x10^3/uL (0.3-0.8) H 05/05/24 14:35 Eos # (Auto) 0.0 x10^3/uL (0.0-0.2) 05/05/24 14:35 Baso # (Auto) 0.1 X10^3/uL (0.0-0.1) 05/05/24 14:35 Absolute Nucleated RBC 0.0 /100WBC 05/05/24 14:35 Sodium 138 mmol/L (136-145) 05/05/24 14:35 Corrected Sodium TNP 05/05/24 14:35 Potassium 4.2 mmol/L (3.5-5.1) 05/05/24 14:35 Chloride 98 mmol/L (98-107) 05/05/24 14:35 Carbon Dioxide 30.9 mmol/L (21-32) 05/05/24 14:35 BUN 13 mg/dL (7-18) 05/05/24 14:35 Creatinine 0.94 mg/dL (0.55-1.02) 05/05/24 14:35 Est GFR (MDRD) Af Amer > 60 (>60) 05/05/24 14:35 Est GFR (MDRD) Non-Af > 60 (>60) 05/05/24 14:35 Glucose 101 mg/dL (65-99) H 05/05/24 14:35 Calcium 10.6 mg/dL (8.5-10.1) H 05/05/24 14:35 Corrected Calcium TNP 05/05/24 14:35 Total Bilirubin 1.20 mg/dL (0.2-1.0) H 05/05/24 14:35 AST 149 Units/L (15-37) H 05/05/24 14:35 ALT 121 Units/L (12-78) H 05/05/24 14:35 Alkaline Phosphatase 114 Units/L (46-116) 05/05/24 14:35 Total Protein 8.0 g/dL (6.4-8.2) 05/05/24 14:35 Albumin 3.5 g/dL (3.4-5.0) 05/05/24 14:35 Globulin 4.5 g/dL (2.5-4.5) 05/05/24 14:35 Albumin/Globulin Ratio 0.8 Ratio (1.1-2.1) L 05/05/24 14:35 Opioid Opioid Risk Tool Age (Roger box if 16-45): No History of Preadolescent Sexual Abuse: No Total: 0 Total Score Risk Category: Low Risk Copyright: Acosta HERRERA predicting aberrant behaviors Discharge Plan Diagnosis Discharge Problem: Adult failure to thrive, Fall, Dementia Discharge Plan Patient Disposition: 09 ADMITTED INPATIENT Condition: Stable Prescriptions: No Action ibandronate 150 mg tablet 150 mg PO QMONTH Gemtesa 75 mg tablet 75 mg PO QPM gabapentin 300 mg capsule 300 mg PO TID MDD 2 tizanidine 4 mg tablet 4 mg PO QPM lovastatin 40 mg tablet 40 mg PO QDAY sertraline 100 mg tablet 100 mg PO QDAY levothyroxine 88 mcg tablet 88 mcg PO QDAY cyanocobalamin (vitamin B-12) 1,000 mcg/mL solution 1,000 mcg IM QMONTH alprazolam 2 mg tablet 2 mg PO TID PRN Vraylar 1.5 mg capsule 1.5 mg PO QDAY Health Concerns: Post Hospitalization: new medications and changes needed to prevent readmission or further decline. Pt educated and given instructions on all concerns. Plan of Treatment: Continue with present treatment and follow up plan. Pt is to keep follow up appointment as instructed and take medications as ordered. Orders to Discharge Patient Discharge Orders: Transfer (Routine); Ordered 05/05/24 Ordered By: Rupesh Awad Follow ups/Referrals Follow ups/Referrals: Alcides Briones [Primary Care Provider] - 3 days Instructions Stand Alone Forms: Find Help Web Site, Post Hospital Follow Up Care
[2024-05-05] MEDS ORDERED: CONSULT PHARMACY - POTASSIUM & MAGNESIUM XX SCH (17:00)
[2024-05-05] MEDS: NS 1,000 ML IV 1,000 ML IV SCH (17:37)
[2024-05-05 18:14] VITALS: BMI 26.6
[2024-05-05 19:10] LABS: BILIRUBIN,URINE NEGATIVE (NEGATIVE); BLOOD/HEMOGLOBIN,URINE 3+ (NEGATIVE); GLUCOSE, URINE NEGATIVE (NEGATIVE); KETONES,URINE NEGATIVE (NEGATIVE); LEUKOCYTE ESTERASE ,URINE 1+ (NEGATIVE); NITRITES,URINE NEGATIVE (NEGATIVE); PROTEIN,URINE 1+ (NEGATIVE); UROBILINOGEN,URINE 2+ (NORMAL)
[2024-05-05 19:11] LABS: APPEARANCE,URINE CLEAR (CLEAR); COLOR,URINE YELLOW (YELLOW)
[2024-05-05 19:17] LABS: BACTERIA,URINE 1+ /HPF (NEGATIVE); SQUAMOUS EPITHELIAL CELL,UR MODERATE /HPF (NEGATIVE)
--- NOTE | 2024-05-05 22:37 | RAD ---
EXAM: FOREARM, LEFT HISTORY: Pt fell on , Since fall, pt c/o left neck, left shoulder, left arm and left hand pain, low ba ck pain. Spouse states since fall pt has had significant decrease in ability to perform I/ADLs, walk, decrease in ROM ; COMPARISON: None. TECHNIQUE: AP and lateral views were acquired FINDINGS: There is no fracture. There is mild degeneration in the carpus. There is no joint effusion. Soft t issues are unremarkable. IMPRESSION: Nothing acute. THIS IS AN ELECTRONICALLY VERIFIED FINAL REPORT 05/05/2024 10:33 PM - Electronically signed by Martín Hoyos MD
--- NOTE | 2024-05-05 22:38 | RAD ---
EXAM: WRIST, LEFT HISTORY: Pt fell on , Since fall, pt c/o left neck, left shoulder, left arm and left hand pain, low ba ck pain. Spouse states since fall pt has had significant decrease in ability to perform I/ADLs, walk, decrease in ROM; COMPARISON: None. TECHNIQUE: AP, lateral, and oblique views were acquired. FINDINGS: The alignment is anatomic. There is no fracture or dislocation. There is degeneration in the carpus most pronounced in the 1st carpometacarpal joint.. There is no worrisome soft tissue abnormality. IMPRESSION: Degeneration but nothing acute. THIS IS AN ELECTRONICALLY VERIFIED FINAL REPORT 05/05/2024 10:35 PM - Electronically signed by Martín Hoyos MD
--- NOTE | 2024-05-05 23:00 | RAD ---
EXAM: SHOULDER, LEFT HISTORY: Pt fell on , Since fall, pt c/o left neck, left shoulder, left arm and left hand pain, low ba ck pain. Spouse states since fall pt has had significant decrease in ability to perform I/ADLs, walk, decrease in ROM ; COMPARISON: None. TECHNIQUE: Left shoulder three views FINDINGS: No fracture is identified. There is degeneration of the AC joint. There is erosive change in the la teral aspect of the humeral head suggestive of rotator cuff tendinopathy. Chest wall is unremarkable . IMPRESSION: Nothing acute. THIS IS AN ELECTRONICALLY VERIFIED FINAL REPORT 05/05/2024 10:46 PM - Electronically signed by Martín Hoyos MD
[2024-05-06 06:13] LABS: BASOPHILS % (AUTO) 0.5 % (0.2-1.0); HEMATOCRIT 35.6 % (36.0-47.0); HEMOGLOBIN 12.4 g/dL (12.0-16.0); LYMPHOCYTES # (AUTO) 0.9 X10^3/uL (1.3-2.9); LYMPHOCYTES % (AUTO) 9.8 % (21.0-51.0); MEAN CORPUSCULAR HEMOGLOBIN 30.6 pg (27.0-34.0); MEAN CORPUSCULAR HGB CONC 34.8 g/dL (33.0-35.0); MEAN CORPUSCULAR VOLUME 87.8 fL (80.0-100.0); MEAN PLATELET VOLUME 10.7 fL (7.4-11.0); MONOCYTES # (AUTO) 1.3 x10^3/uL (0.3-0.8); NEUTROPHILS % (AUTO) 75.7 % (42.0-75.0); PLATELET COUNT 143 X10^3/uL (150.0-450.0); RED BLOOD COUNT 4.06 X10^6/uL (3.5-5.4); RED CELL DISTRIBUTION WIDTH 12.7 % (11.6-16.5); WHITE BLOOD COUNT 9.2 X10^3/uL (3.6-10.0)
[2024-05-06 06:28] LABS: ALANINE AMINOTRANSFERASE 154 Units/L (12-78); ALKALINE PHOSPHATASE 125 Units/L (46-116); ASPARTATE AMINO TRANSFERASE 134 Units/L (15-37); BLOOD UREA NITROGEN 10 mg/dL (7-18); CALCIUM 10.5 mg/dL (8.5-10.1); CARBON DIOXIDE 26.5 mmol/L (21-32); CHLORIDE 101 mmol/L (98-107); COR CA(FOR HYPOALB) 11.3 mg/dL (8.5-10.1); CREATININE 0.77 mg/dL (0.55-1.02); GLUCOSE 110 mg/dL (65-99); POTASSIUM 4.2 mmol/L (3.5-5.1); SODIUM 137 mmol/L (136-145); TOTAL PROTEIN 7.4 g/dL (6.4-8.2); eGFR NON BLACK RACES > 60 (>60)
--- NOTE | 2024-05-06 06:44 | RAD ---
EXAM:Portable AP chestHISTORY:AMSCOMPARISON:None .br.br spaces.IMPRESSION:No acute or significant chest findings.THIS IS AN ELECTRONICALLY VERIFIED FINAL REPORT05/06/2024 6:41 AM - Electronically signed by Otoniel Johnson MD
--- NOTE | 2024-05-06 07:09 | RAD ---
EXAM:Left hand three viewsHISTORY:FellCOMPARISON:None r.br.br.br.br TFCC and 2nd and 3rd MCP joints.Degenerative narrowing of 1st CMC joint. No articular deformity or erosion otherwise demonstrated.IMPRESSION:No recent injury identified. Localized osteoarthrosis and chondrocalcinosis/CPPD.THIS IS AN ELECTRONICALLY VERIFIED FINAL REPORT05/06/2024 7:05 AM - Electronically signed by Otoniel Johnson MD
--- NOTE | 2024-05-06 07:09 | RAD ---
EXAM:Left humerus two viewsHISTORY:FellCOMPARISON:None r.br.br contour deformity or osteolytic involvement.IMPRESSION:Normal exam.THIS IS AN ELECTRONICALLY VERIFIED FINAL REPORT05/06/2024 7:06 AM - Electronically signed by Otoniel Johnson MD
[2024-05-06] MEDS: MIRALAX POWDER (1 DOSE 17 G) PO SCH (14:35)
[2024-05-06] MEDS: NEURONTIN CAP 300 MG PO SCH (14:36)
[2024-05-06] MEDS: ZOLOFT PO SCH (14:36)
[2024-05-06] MEDS: SYNTHROID 88 mcg TAB PO SCH (14:36)
[2024-05-06] MEDS: ZOLOFT ONE (14:37)
--- NOTE | 2024-05-06 14:48 | DR.H&P ---
H&P History & Physical for Day of: H&P Date: 05/06/24 Chief Complaint Chief Complaint: Left-sided weak History of Present Illness History of Present Illness: Patient seen with and nurse at bedside for initial assessment after admission. Brought to the ER from home by family due to worsening overall status with poor mobility secondary to left-sided arm, neck, and leg pain. This started after a fall couple of weeks ago. It was unwitnessed fall at home. Per spouse she has been having issues with her memory for a while now. She is told him 3 different stories about how she fell. There is 6-year-old was at home and was unable to help. Since that time she has had worsening mobility, p.o. intake, and function al status. In the ER she was found to have elevated liver enzymes and a negative head CT. She has not had a stroke in the past that they are aware of. She reports that the difficulty moving her neck, arm, and leg are secondary to pain, not weakness. ROS: 12 point ROS negative except as noted in HPI PE: Well-developed, well-nourished female in no acute distress. Head NCAT. Extraocular movements grossly normal. Hearing intact conversation. Neck range of motion is limited with the left rotation and left lateral flexion. Left shoulder with limited range of motion but full range of motion on the right. Heart regular rate and rhythm. Lungs are clear bilaterally. Bowel sounds are present and belly is nontender and soft. Mood and affect are down. Left wrist is red and swollen without obvious injury. Very limited motion of her left elbow, hand, and wrist secondary to pain. Past Medical History Past Medical History: Anxiety, Depression, Dyslipidemia and Hypothyroidism Past Surgical History Surgical History: Hysterectomy Family History Family Medical History: Cancer Social History Does patient currently use any type of tobacco product: No Type of Tobacco Use: None Does any household member use tobacco: No Alcohol Use: None Drug Use: None Medications Home Medications: Home Medications Medication Instructions Recorded Confirmed Type alprazolam 2 mg tablet 2 mg PO TID PRN 07/01/23 05/05/24 History cariprazine 1.5 mg capsule 1.5 mg PO QDAY 07/01/23 05/05/24 History (Vraylar) cyanocobalamin (vitamin B-12) 1,000 mcg IM QMONTH 07/01/23 05/05/24 History 1,000 mcg/mL injection solution levothyroxine 88 mcg tablet 88 mcg PO QDAY 07/01/23 05/05/24 History lovastatin 40 mg tablet 40 mg PO QDAY 07/01/23 05/05/24 History sertraline 100 mg tablet 100 mg PO QDAY 07/01/23 05/05/24 History tizanidine 4 mg tablet 4 mg PO QPM 07/01/23 05/05/24 History gabapentin 300 mg capsule 300 mg PO TID lumbar radiculopathy 05/05/24 05/05/24 History ibandronate 150 mg tablet 150 mg PO QMONTH 05/05/24 05/05/24 History vibegron 75 mg tablet (Gemtesa) 75 mg PO QPM 05/05/24 05/05/24 History Allergies Allergies Allergy/AdvReac Type Severity Reaction Status Date / Time ciprofloxacin [From Cipro] Allergy Verified 05/05/24 13:42 codeine Allergy Verified 05/05/24 13:42 hydromorphone [From Dilaudid] Allergy Verified 05/05/24 13:42 morphine Allergy Verified 05/05/24 13:42 Labs 05/06/24 05:21 05/06/24 05:21 Labs: Laboratory WBC 9.2 X10^3/uL (3.6-10.0) 05/06/24 05:21 RBC 4.06 X10^6/uL (3.5-5.4) 05/06/24 05:21 Hgb 12.4 g/dL (12.0-16.0) 05/06/24 05:21 Hct 35.6 % (36.0-47.0) L 05/06/24 05:21 MCV 87.8 fL (80.0-100.0) 05/06/24 05:21 MCH 30.6 pg (27.0-34.0) 05/06/24 05:21 MCHC 34.8 g/dL (33.0-35.0) 05/06/24 05:21 RDW 12.7 % (11.6-16.5) 05/06/24 05:21 Plt Count 143 X10^3/uL (150.0-450.0) L 05/06/24 05:21 MPV 10.7 fL (7.4-11.0) 05/06/24 05:21 Neut % (Auto) 75.7 % (42.0-75.0) H 05/06/24 05:21 Lymph % (Auto) 9.8 % (21.0-51.0) L 05/06/24 05:21 [place] % (Auto) 14.0 % (0.0-13.0) H 05/06/24 05:21 Eos % (Auto) 0.0 % (0.9-2.9) L 05/06/24 05:21 Baso % (Auto) 0.5 % (0.2-1.0) 05/06/24 05:21 Neut # (Auto) 7.0 x10^3/uL (2.2-4.8) H 05/06/24 05:21 Lymph # (Auto) 0.9 X10^3/uL (1.3-2.9) L 05/06/24 05:21 [place] # (Auto) 1.3 x10^3/uL (0.3-0.8) H 05/06/24 05:21 Eos # (Auto) 0.0 x10^3/uL (0.0-0.2) 05/06/24 05:21 Baso # (Auto) 0.0 X10^3/uL (0.0-0.1) 05/06/24 05:21 Absolute Nucleated RBC 0.0 /100WBC 05/06/24 05:21 Sodium 137 mmol/L (136-145) 05/06/24 05:21 Corrected Sodium TNP 05/06/24 05:21 Potassium 4.2 mmol/L (3.5-5.1) 05/06/24 05:21 Chloride 101 mmol/L (98-107) 05/06/24 05:21 Carbon Dioxide 26.5 mmol/L (21-32) 05/06/24 05:21 BUN 10 mg/dL (7-18) 05/06/24 05:21 Creatinine 0.77 mg/dL (0.55-1.02) 05/06/24 05:21 Est GFR (MDRD) Af Amer > 60 (>60) 05/06/24 05:21 Est GFR (MDRD) Non-Af > 60 (>60) 05/06/24 05:21 Glucose 110 mg/dL (65-99) H 05/06/24 05:21 Calcium 10.5 mg/dL (8.5-10.1) H 05/06/24 05:21 Corrected Calcium 11.3 mg/dL (8.5-10.1) H 05/06/24 05:21 Magnesium 2.0 mg/dL (2.0-2.9) 05/05/24 14:35 Total Bilirubin 1.00 mg/dL (0.2-1.0) 05/06/24 05:21 AST 134 Units/L (15-37) H 05/06/24 05:21 ALT 154 Units/L (12-78) H 05/06/24 05:21 Alkaline Phosphatase 125 Units/L (46-116) H 05/06/24 05:21 Ammonia < 10 umol/L (11-32) L 05/05/24 17:05 Total Protein 7.4 g/dL (6.4-8.2) 05/06/24 05:21 Albumin 3.0 g/dL (3.4-5.0) L 05/06/24 05:21 Globulin 4.4 g/dL (2.5-4.5) 05/06/24 05:21 Albumin/Globulin Ratio 0.7 Ratio (1.1-2.1) L 05/06/24 05:21 TSH 3rd Generation 3.249 uIU/mL (0.358-3.74) 05/05/24 14:35 Specimen Type Clean catch urine 05/05/24 18:52 Urine Color Yellow (YELLOW) 05/05/24 18:52 Urine Appearance Clear (CLEAR) 05/05/24 18:52 Urine pH 6.0 (5.0 - 8.0) 05/05/24 18:52 Ur Specific [place] 1.010 (1.000-1.030) 05/05/24 18:52 Urine Protein 1+ (NEGATIVE) 05/05/24 18:52 Urine Glucose (UA) Negative (NEGATIVE) 05/05/24 18:52 Urine Ketones Negative (NEGATIVE) 05/05/24 18:52 Urine Blood 3+ (NEGATIVE) 05/05/24 18:52 Urine Nitrite Negative (NEGATIVE) 05/05/24 18:52 Urine Bilirubin Negative (NEGATIVE) 05/05/24 18:52 Urine Urobilinogen 2+ (NORMAL) 05/05/24 18:52 Ur Leukocyte Esterase 1+ (NEGATIVE) 05/05/24 18:52 Urine RBC 3-5 /HPF (0-3) A 05/05/24 18:52 Urine WBC 3-5 /HPF (0-5) 05/05/24 18:52 Ur Squamous Epith Cells Moderate /HPF (NEGATIVE) 05/05/24 18:52 Urine Bacteria 1+ /HPF (NEGATIVE) 05/05/24 18:52 Urine Mucus Rare /HPF (NEGATIVE) 05/05/24 18:52 Ur Culture Indicated? 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 Increase tizanidine to every 8 for now. Status: Acute (2) Dementia: Qualifiers: Dementia type: Alzheimer's Alzheimer's disease onset: early onset Dementia severity: mild Dementia behavioral or psychological symptom: without behavioral, psychotic, or mood disturbance or anxiety Qualified Code(s): G30.0 - Alzheimer's disease with early onset; F02.A0 - Dementia in other diseases classified elsewhere, mild, without behavioral disturbance, psychotic disturbance, mood disturbance, and anxiety Narrative Support Text: Supportive care Status: Acute (3) Left wrist pain: Narrative Support Text: Toradol 30 IV x 1. Consider gout but likely posttraumatic arthritis Status: Acute (4) Elevated liver enzymes: Narrative Support Text: Ammonia negative. Monitor Status: Acute
[2024-05-06] MEDS: TORADOL 30 MG VIAL IVP ONE (16:16)
[2024-05-06] MEDS: ZANAFLEX PO SCH (16:16)
[2024-05-06] MEDS ORDERED: ZANAFLEX PO SCH (21:00)
[2024-05-06] MEDS: PATIENT'S HOME MEDICATION (Vibegron [Gemtesa] 75 mg tablet) PO SCH (21:36)
[2024-05-07 05:56] LABS: ALANINE AMINOTRANSFERASE 129 Units/L (12-78); ALBUMIN 2.6 g/dL (3.4-5.0); ALKALINE PHOSPHATASE 159 Units/L (46-116); ASPARTATE AMINO TRANSFERASE 115 Units/L (15-37); BLOOD UREA NITROGEN 15 mg/dL (7-18); CALCIUM 10.2 mg/dL (8.5-10.1); CARBON DIOXIDE 27.4 mmol/L (21-32); CHLORIDE 99 mmol/L (98-107); COR CA(FOR HYPOALB) 11.3 mg/dL (8.5-10.1); CREATININE 0.99 mg/dL (0.55-1.02); GLUCOSE 93 mg/dL (65-99); POTASSIUM 4.2 mmol/L (3.5-5.1); SODIUM 135 mmol/L (136-145); TOTAL PROTEIN 6.9 g/dL (6.4-8.2); eGFR NON BLACK RACES > 60 (>60)
[2024-05-07 05:57] LABS: BASOPHILS # (AUTO) 0.1 X10^3/uL (0.0-0.1); BASOPHILS % (AUTO) 0.8 % (0.2-1.0); EOSINOPHILS % (AUTO) 0.2 % (0.9-2.9); HEMATOCRIT 30.9 % (36.0-47.0); HEMOGLOBIN 10.6 g/dL (12.0-16.0); LYMPHOCYTES # (AUTO) 0.7 X10^3/uL (1.3-2.9); MEAN CORPUSCULAR HEMOGLOBIN 30.5 pg (27.0-34.0); MEAN CORPUSCULAR HGB CONC 34.4 g/dL (33.0-35.0); MEAN CORPUSCULAR VOLUME 88.8 fL (80.0-100.0); MEAN PLATELET VOLUME 10.6 fL (7.4-11.0); MONOCYTES # (AUTO) 1.1 x10^3/uL (0.3-0.8); MONOCYTES % (AUTO) 13.7 % (0.0-13.0); NEUTROPHILS # (AUTO) 6.3 x10^3/uL (2.2-4.8); NEUTROPHILS % (AUTO) 76.3 % (42.0-75.0); PLATELET COUNT 125 X10^3/uL (150.0-450.0); RED BLOOD COUNT 3.48 X10^6/uL (3.5-5.4); RED CELL DISTRIBUTION WIDTH 12.7 % (11.6-16.5); WHITE BLOOD COUNT 8.3 X10^3/uL (3.6-10.0)
[2024-05-07] MEDS: LIPITOR TAB 10 MG PO SCH (08:04)
[2024-05-07] MEDS: ZOLOFT ONE (08:09)
--- NOTE | 2024-05-07 09:34 | CT ---
EXAM:SOFT TISSUE NECK WITH CONHISTORY:Severe neck pain s/p fall;COMPARISON:05/05/2024TECHNIQUE:CT of the neck obtained with IV contrast. Sagittal and coronal reformatted images were performed. Dose reduction techniques including Automated Exposure Control (AEC) and adjustment of mA and kV were utilized.FINDINGS:The visualized intracranial structures and bilateral orbits demonstrate no significant abnormality. Visualized paranasal sinuses and mastoid air cells appear well pneumatized.The oropharynx, hypopharynx, and larynx appear symmetric and unremarkable. The airway is patent. The salivary glands appear symmetric and unremarkable. No cervical chain adenopathy. The thyroid is unremarkable.No acute fracture. C5-C6 ACDF. The visualized vasculature in the neck demonstrates no acute process. Visualized portions of the upper thorax demonstrate no acute process.IMPRESSION:No acute soft tissue abnormality in the neck.THIS IS AN ELECTRONICALLY VERIFIED FINAL REPORT05/07/2024 9:31 AM - Electronically signed by Titus Keller MD
[2024-05-07] MEDS ORDERED: TORADOL 15 MG VIAL IVP PRN (10:57)
--- NOTE | 2024-05-07 11:08 | PCM.PROG ---
Progress Note Progress Note for Day of Date of Exam: 05/07/24 Subjective Subjective: Patient seen at bedside, no acute events overnight. She continues to have neck pain and left wrist pain. She presented with AMS, multiple joint pain after having a fall last week. She also has chronic memory impairment, so history has been limited. She is not able to move her neck much to the left side. Her left wrist appears to be red and more swollen today with limited ROM. She also had a fever of 100.7 overnight. Initial work for infection was negative. All the imaging so far has been negative for any acute fracture or any dislocation. CT-neck soft tissue was done today which did not show anything acute. She has had decreased appetite and some nausea. She did have a small BM today. She does have a hx of constipation and does take Miralax daily. Labs/imaging reviewed: -WBC 8 HGb 10.6 Plt 125 K 4.2 Na 135 BUN/Cr 15/0.99 AST/ALT 115/129 AP 159 -imaging reviewed Plan: will repeat UA, COVID panel, CXR. Obtain blood Cx. Start empiric rocephin. Follow MRI-brain results. Will order CT left arm to evaluate left wrist. Add toradol prn. Continue tizanidine prn. Replace electrolytes prn. Continue home medications. Continue gentle hydration. Monitor AM labs/imaging. Past Medical Family Social History Allergies: Allergies ciprofloxacin [From Cipro] Allergy (Verified 05/05/24 13:42) codeine Allergy (Verified 05/05/24 13:42) hydromorphone [From Dilaudid] Allergy (Verified 05/05/24 13:42) morphine Allergy (Verified 05/05/24 13:42) Vital Signs and I&O's Vital Signs: Vital Signs Temperature 99.5 F Temperature 100.1 F Pulse Rate [Right Brachial] 83 Pulse Rate [Right Brachial] 73 Respiratory Rate 18 Respiratory Rate 18 Blood Pressure [Right Arm] 100/51 Blood Pressure [Right Arm] 90/55 O2 Sat by Pulse Oximetry 93 O2 Sat by Pulse Oximetry 95 Intake and Output: Intake & Output 05/04/24 05/05/24 05/06/24 05/07/24 23:59 23:59 23:59 23:59 Intake Total 2136 / 2136 2420 / 2420 537 / 537 Balance 2136 / 2136 2420 / 2420 537 / 537 Physical Exam Oriented: Normal Eyes: Normal Throat: Normal Respiratory: Generalized and Diminished Cardiovascular: Normal Auscultation: Bowel Sounds: Normal Tenderness: Periumbilical Skin: Normal Musculoskeletal: Left, Wrist, Hand, Tender and Motor Deficit Psychiatric: Normal Mood Description: Calm Affect: Normal Speech Pattern: Clear and Appropriate Laboratory and Diagnostics 05/07/24 05:25 05/07/24 05:25 Labs: Laboratory WBC 8.3 X10^3/uL (3.6-10.0) 05/07/24 05:25 RBC 3.48 X10^6/uL (3.5-5.4) L 05/07/24 05:25 Hgb 10.6 g/dL (12.0-16.0) L 05/07/24 05:25 Hct 30.9 % (36.0-47.0) L 05/07/24 05:25 MCV 88.8 fL (80.0-100.0) 05/07/24 05:25 MCH 30.5 pg (27.0-34.0) 05/07/24 05:25 MCHC 34.4 g/dL (33.0-35.0) 05/07/24 05:25 RDW 12.7 % (11.6-16.5) 05/07/24 05:25 Plt Count 125 X10^3/uL (150.0-450.0) L 05/07/24 05:25 MPV 10.6 fL (7.4-11.0) 05/07/24 05:25 Neut % (Auto) 76.3 % (42.0-75.0) H 05/07/24 05:25 Lymph % (Auto) 9.0 % (21.0-51.0) L 05/07/24 05:25 [place] % (Auto) 13.7 % (0.0-13.0) H 05/07/24 05:25 Eos % (Auto) 0.2 % (0.9-2.9) L 05/07/24 05:25 Baso % (Auto) 0.8 % (0.2-1.0) 05/07/24 05:25 Neut # (Auto) 6.3 x10^3/uL (2.2-4.8) H 05/07/24 05:25 Lymph # (Auto) 0.7 X10^3/uL (1.3-2.9) L 05/07/24 05:25 [place] # (Auto) 1.1 x10^3/uL (0.3-0.8) H 05/07/24 05:25 Eos # (Auto) 0.0 x10^3/uL (0.0-0.2) 05/07/24 05:25 Baso # (Auto) 0.1 X10^3/uL (0.0-0.1) 05/07/24 05:25 Absolute Nucleated RBC 0.0 /100WBC 05/07/24 05:25 Sodium 135 mmol/L (136-145) L 05/07/24 05:25 Corrected Sodium TNP 05/07/24 05:25 Potassium 4.2 mmol/L (3.5-5.1) 05/07/24 05:25 Chloride 99 mmol/L (98-107) 05/07/24 05:25 Carbon Dioxide 27.4 mmol/L (21-32) 05/07/24 05:25 BUN 15 mg/dL (7-18) 05/07/24 05:25 Creatinine 0.99 mg/dL (0.55-1.02) 05/07/24 05:25 Est GFR (MDRD) Af Amer > 60 (>60) 05/07/24 05:25 Est GFR (MDRD) Non-Af > 60 (>60) 05/07/24 05:25 Glucose 93 mg/dL (65-99) 05/07/24 05:25 Calcium 10.2 mg/dL (8.5-10.1) H 05/07/24 05:25 Corrected Calcium 11.3 mg/dL (8.5-10.1) H 05/07/24 05:25 Magnesium 2.0 mg/dL (2.0-2.9) 05/05/24 14:35 Total Bilirubin 1.20 mg/dL (0.2-1.0) H 05/07/24 05:25 AST 115 Units/L (15-37) H 05/07/24 05:25 ALT 129 Units/L (12-78) H 05/07/24 05:25 Alkaline Phosphatase 159 Units/L (46-116) H 05/07/24 05:25 Ammonia < 10 umol/L (11-32) L 05/05/24 17:05 Total Protein 6.9 g/dL (6.4-8.2) 05/07/24 05:25 Albumin 2.6 g/dL (3.4-5.0) L 05/07/24 05:25 Globulin 4.3 g/dL (2.5-4.5) 05/07/24 05:25 Albumin/Globulin Ratio 0.6 Ratio (1.1-2.1) L 05/07/24 05:25 TSH 3rd Generation 3.249 uIU/mL (0.358-3.74) 05/05/24 14:35 Specimen Type Clean catch urine 05/05/24 18:52 Urine Color Yellow (YELLOW) 05/05/24 18:52 Urine Appearance Clear (CLEAR) 05/05/24 18:52 Urine pH 6.0 (5.0 - 8.0) 05/05/24 18:52 Ur Specific [place] 1.010 (1.000-1.030) 05/05/24 18:52 Urine Protein 1+ (NEGATIVE) 05/05/24 18:52 Urine Glucose (UA) Negative (NEGATIVE) 05/05/24 18:52 Urine Ketones Negative (NEGATIVE) 05/05/24 18:52 Urine Blood 3+ (NEGATIVE) 05/05/24 18:52 Urine Nitrite Negative (NEGATIVE) 05/05/24 18:52 Urine Bilirubin Negative (NEGATIVE) 05/05/24 18:52 Urine Urobilinogen 2+ (NORMAL) 05/05/24 18:52 Ur Leukocyte Esterase 1+ (NEGATIVE) 05/05/24 18:52 Urine RBC 3-5 /HPF (0-3) A 05/05/24 18:52 Urine WBC 3-5 /HPF (0-5) 05/05/24 18:52 Ur Squamous Epith Cells Moderate /HPF (NEGATIVE) 05/05/24 18:52 Urine Bacteria 1+ /HPF (NEGATIVE) 05/05/24 18:52 Urine Mucus Rare /HPF (NEGATIVE) 05/05/24 18:52 Ur Culture Indicated? 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: Status: Acute (3) Left wrist pain: Status: Acute (4) Dementia: Status: Chronic Qualifiers: Alzheimer's disease onset: early onset Dementia behavioral or psychological symptom: without behavioral, psychotic, or mood disturbance or anxiety Dementia severity: mild Dementia type: Alzheimer's Qualified Code(s): G30.0 - Alzheimer's disease with early onset; F02.A0 - Dementia in other diseases classified elsewhere, mild, without behavioral disturbance, psychotic disturbance, mood disturbance, and anxiety (5) Elevated liver enzymes: Status: Acute (6) Fall: Status: Acute Qualifiers: Encounter type: sequela Qualified Code(s): W19.XXXS - Unspecified fall, sequela (7) Constipation: Status: Chronic Qualifiers: Constipation type: slow transit constipation Qualified Code(s): K59.01 - Slow transit constipation
[2024-05-07] MEDS: ROCEPHIN VIAL 1 GRAM 1 G in NS 100 ML IV 100 ML IV SCH (11:33)
[2024-05-07] MEDS: OMNIPAQUE 350 mg/mL 100 mL BTL 100 ML ONE ×2 (12:07→14:51)
[2024-05-07] MEDS: MULTIHANCE INJ VIAL ONE (12:07)
[2024-05-07] MEDS: NS 100 ML IV 100 ML ONE (12:07)
[2024-05-07] MEDS: MILK OF MAGNESIA PO PRN (13:35)
[2024-05-07 13:49] LABS: BILIRUBIN,URINE NEGATIVE (NEGATIVE); BLOOD/HEMOGLOBIN,URINE 4+ (NEGATIVE); GLUCOSE, URINE NEGATIVE (NEGATIVE); KETONES,URINE NEGATIVE (NEGATIVE); LEUKOCYTE ESTERASE ,URINE 2+ (NEGATIVE); NITRITES,URINE NEGATIVE (NEGATIVE); PROTEIN,URINE 3+ (NEGATIVE); UROBILINOGEN,URINE 3+ (NORMAL)
[2024-05-07 13:51] LABS: APPEARANCE,URINE HAZY (CLEAR); COLOR,URINE YELLOW (YELLOW)
--- NOTE | 2024-05-07 15:50 | CT ---
EXAM: UPPER EXT WITH CON HISTORY: left wrist redness, swelling and pain; COMPARISON: 05/05/2024 radiographs TECHNIQUE: Multiple CT axial images of the left wrist and hand were obtained without administration of 75 mL Omn ipaque 350 IV contrast. Sagittal and coronal reformats were performed and reviewed. Dose reduction t echniques including Automated Exposure Control (AEC) and adjustment of mA and kV were utilized. FINDINGS: There is dorsal subcutaneous edema but no subcutaneous gas. No evidence for a rim enhancing abscess on this study. Most notable dorsal subcutaneous edema is dorsal to the 4th and 5th metacarpophalange al joints. No evidence for fracture. Chondrocalcinosis in the proximal carpal row space and degener ative changes of the scaphoid trapezial and 1st carpometacarpal joint with mild lateral subluxation o f the 1st metacarpal. No osseous destruction identified. No fracture seen. IMPRESSION: Dorsal hand soft tissue swelling most notable dorsal to the 4th and 5th metacarpophalangeal joints bu t no rim enhancing abscess or subcutaneous gas. No osseous destruction to suggest osteomyelitis.. THIS IS AN ELECTRONICALLY VERIFIED FINAL REPORT 05/07/2024 3:47 PM - Electronically signed by Haile Antoine MD
--- NOTE | 2024-05-07 20:27 | RAD ---
EXAMINATION:CHEST, 1 VIEWHISTORY:FEVER; .COMPARISON STUDY:Chest x-ray 05/05/2024TECHNIQUE:Single frontal view of the chestFINDINGS:Lungs are expanded. Mild cardiac silhouette enlargement. Normal pulmonary vascular pattern. CP angles are sharp. Bones are intact.IMPRESSION:Mild cardiac silhouette enlargement.THIS IS AN ELECTRONICALLY VERIFIED FINAL REPORT05/07/2024 8:23 PM - Electronically signed by Belle Haines MD
[2024-05-08 06:33] LABS: BASOPHILS # (AUTO) 0.1 X10^3/uL (0.0-0.1); BASOPHILS % (AUTO) 0.9 % (0.2-1.0); EOSINOPHILS % (AUTO) 0.1 % (0.9-2.9); HEMATOCRIT 30.6 % (36.0-47.0); HEMOGLOBIN 10.4 g/dL (12.0-16.0); LYMPHOCYTES # (AUTO) 0.6 X10^3/uL (1.3-2.9); LYMPHOCYTES % (AUTO) 7.2 % (21.0-51.0); MEAN CORPUSCULAR HEMOGLOBIN 29.7 pg (27.0-34.0); MEAN CORPUSCULAR HGB CONC 33.9 g/dL (33.0-35.0); MEAN CORPUSCULAR VOLUME 87.6 fL (80.0-100.0); MEAN PLATELET VOLUME 11.1 fL (7.4-11.0); MONOCYTES # (AUTO) 0.8 x10^3/uL (0.3-0.8); MONOCYTES % (AUTO) 10.6 % (0.0-13.0); NEUTROPHILS # (AUTO) 6.5 x10^3/uL (2.2-4.8); NEUTROPHILS % (AUTO) 81.2 % (42.0-75.0); PLATELET COUNT 176 X10^3/uL (150.0-450.0); RED BLOOD COUNT 3.49 X10^6/uL (3.5-5.4); RED CELL DISTRIBUTION WIDTH 12.8 % (11.6-16.5)
[2024-05-08 06:42] LABS: ALANINE AMINOTRANSFERASE 222 Units/L (12-78); ALBUMIN 2.4 g/dL (3.4-5.0); ALKALINE PHOSPHATASE 267 Units/L (46-116); ASPARTATE AMINO TRANSFERASE 249 Units/L (15-37); BLOOD UREA NITROGEN 10 mg/dL (7-18); CALCIUM 10.5 mg/dL (8.5-10.1); CARBON DIOXIDE 28.2 mmol/L (21-32); CHLORIDE 102 mmol/L (98-107); COR CA(FOR HYPOALB) 11.8 mg/dL (8.5-10.1); COR NA(FOR HYPERGLY) 137 mmol/L (136-145); CREATININE 0.74 mg/dL (0.55-1.02); GLUCOSE 111 mg/dL (65-99); MAGNESIUM 2.2 mg/dL (2.0-2.9); POTASSIUM 4.2 mmol/L (3.5-5.1); SODIUM 137 mmol/L (136-145); TOTAL PROTEIN 6.7 g/dL (6.4-8.2); eGFR NON BLACK RACES > 60 (>60)
--- NOTE | 2024-05-08 08:46 | MRI ---
EXAMINATION:BRAIN W&W/O CONHISTORY:ams CONTRAST-MULTIHANCE 18CC INJECTED INTO RIGHT AC ; .COMPARISON STUDY:Noncontrast CT brain 05/05/2024TECHNIQUE:Multi planar MR images of the brain using multiple imaging sequences pre and post intravenous contrast.FINDINGS:Diffusion-weighted axial images show no evidence of acute CVA or acute demyelination. No abnormal intra-axial or extra-axial mass, mass effect, or midline shift. Ventricles normal size and shape. No areas of abnormal enhancement seen following intravenous contrast. Normal enhancement of the dural venous sinuses.The sella and suprasellar regions, orbital globes and retro-orbital structures, paranasal sinuses, cervicomedullary junction appear intact.IMPRESSION:No evidence of acute CVA or acute demyelination.THIS IS AN ELECTRONICALLY VERIFIED FINAL REPORT05/08/2024 8:43 AM - Electronically signed by Belle Haines MD
[2024-05-08] MEDS: ZOLOFT ONE (08:55)
--- NOTE | 2024-05-08 09:32 | PCM.PROG ---
Progress Note Progress Note for Day of Date of Exam: 05/08/24 Subjective Subjective: Patient seen at bedside, no acute events overnight. Family present during exam. She did eat some breakfast, appears to be sleeping now. Her left hand/wrist pain, redness and swelling has improved. CT-upper ext showed soft tissue swelling, no abscess or joint destruction. Her UA, CXR and resp panel were all negative. Blood Cx remain negative. She has had some bloating due to constipation. Denies N/V/D. Labs/imaging reviewed: -WBC 8 HGb 10.4 Plt 176 K 4.2 Na 137 BUN/Cr 10/0.74 AST/ALT 259/222 AP 267 -imaging reviewed -Blood Cx (-) -CXR: neg for infection -Resp panel (-) Plan: MRI-brain pending, follow up results. Increase hydration to 100cc/hr. Check Total CK. Continue Rocephin. Will order abdominal US. Continue toradol prn. Continue tizanidine prn. Replace electrolytes prn. Continue home medications. Resume Xanax but decreased dose, take 2mg BID at home, will order 1m BID prn. PT/OT as tolerated. Monitor AM labs/imaging. Past Medical Family Social History Allergies: Allergies ciprofloxacin [From Cipro] Allergy (Verified 05/05/24 13:42) codeine Allergy (Verified 05/05/24 13:42) hydromorphone [From Dilaudid] Allergy (Verified 05/05/24 13:42) morphine Allergy (Verified 05/05/24 13:42) Vital Signs and I&O's Vital Signs: Vital Signs Temperature 99.0 F Pulse Rate [Right Brachial] 77 Respiratory Rate 22 Blood Pressure [Right Arm] 97/55 O2 Sat by Pulse Oximetry 96 Intake and Output: Intake & Output 05/05/24 05/06/24 05/07/24 05/08/24 23:59 23:59 23:59 23:59 Intake Total 2136 2420 / 2420 2373 / 2373 1050 / 1050 Balance 2136 2420 / 2420 2373 / 2373 1050 / 1050 Physical Exam Oriented: Unable to test Eyes: Normal Throat: Normal Respiratory: Generalized and Diminished Cardiovascular: Normal Auscultation: Bowel Sounds: Normal Palpation: Normal Tenderness: Normal Skin: Normal Musculoskeletal: Left, Wrist, Hand, Tender (improved ) and Motor Deficit Psychiatric: Normal Mood Description: Calm Affect: Normal Laboratory and Diagnostics 05/08/24 05:25 05/08/24 05:25 Labs: Laboratory WBC 8.0 X10^3/uL (3.6-10.0) 05/08/24 05:25 RBC 3.49 X10^6/uL (3.5-5.4) L 05/08/24 05:25 Hgb 10.4 g/dL (12.0-16.0) L 05/08/24 05:25 Hct 30.6 % (36.0-47.0) L 05/08/24 05:25 MCV 87.6 fL (80.0-100.0) 05/08/24 05:25 MCH 29.7 pg (27.0-34.0) 05/08/24 05:25 MCHC 33.9 g/dL (33.0-35.0) 05/08/24 05:25 RDW 12.8 % (11.6-16.5) 05/08/24 05:25 Plt Count 176 X10^3/uL (150.0-450.0) 05/08/24 05:25 MPV 11.1 fL (7.4-11.0) H 05/08/24 05:25 Neut % (Auto) 81.2 % (42.0-75.0) H 05/08/24 05:25 Lymph % (Auto) 7.2 % (21.0-51.0) L 05/08/24 05:25 [place] % (Auto) 10.6 % (0.0-13.0) 05/08/24 05:25 Eos % (Auto) 0.1 % (0.9-2.9) L 05/08/24 05:25 Baso % (Auto) 0.9 % (0.2-1.0) 05/08/24 05:25 Neut # (Auto) 6.5 x10^3/uL (2.2-4.8) H 05/08/24 05:25 Lymph # (Auto) 0.6 X10^3/uL (1.3-2.9) L 05/08/24 05:25 [place] # (Auto) 0.8 x10^3/uL (0.3-0.8) 05/08/24 05:25 Eos # (Auto) 0.0 x10^3/uL (0.0-0.2) 05/08/24 05:25 Baso # (Auto) 0.1 X10^3/uL (0.0-0.1) 05/08/24 05:25 Absolute Nucleated RBC 0.0 /100WBC 05/08/24 05:25 Sodium 137 mmol/L (136-145) 05/08/24 05:25 Corrected Sodium 137 mmol/L (136-145) 05/08/24 05:25 Potassium 4.2 mmol/L (3.5-5.1) 05/08/24 05:25 Chloride 102 mmol/L (98-107) 05/08/24 05:25 Carbon Dioxide 28.2 mmol/L (21-32) 05/08/24 05:25 BUN 10 mg/dL (7-18) 05/08/24 05:25 Creatinine 0.74 mg/dL (0.55-1.02) 05/08/24 05:25 Est GFR (MDRD) Af Amer > 60 (>60) 05/08/24 05:25 Est GFR (MDRD) Non-Af > 60 (>60) 05/08/24 05:25 Glucose 111 mg/dL (65-99) H 05/08/24 05:25 Calcium 10.5 mg/dL (8.5-10.1) H 05/08/24 05:25 Corrected Calcium 11.8 mg/dL (8.5-10.1) H 05/08/24 05:25 Magnesium 2.2 mg/dL (2.0-2.9) 05/08/24 05:25 Total Bilirubin 0.50 mg/dL (0.2-1.0) 05/08/24 05:25 AST 249 Units/L (15-37) H 05/08/24 05:25 ALT 222 Units/L (12-78) H 05/08/24 05:25 Alkaline Phosphatase 267 Units/L (46-116) H 05/08/24 05:25 Ammonia < 10 umol/L (11-32) L 05/05/24 17:05 Total Protein 6.7 g/dL (6.4-8.2) 05/08/24 05: Albumin 2.4 g/dL (3.4-5.0) L 05/08/24 05: Globulin 4.3 g/dL (2.5-4.5) 05/08/24 05: Albumin/Globulin Ratio 0.6 Ratio (1.1-2.1) L 05/08/24 05:25 TSH 3rd Generation 3.249 uIU/mL (0.358-3.74) 05/05/24 14:35 Specimen Type Clean catch urine 05/07/24 13:29 Urine Color Yellow (YELLOW) 05/07/24 13:29 Urine Appearance Hazy (CLEAR) 05/07/24 13:29 Urine pH 6.0 (5.0 - 8.0) 05/07/24 13:29 Ur Specific [place] 1.015 (1.000-1.030) 05/07/24 13:29 Urine Protein 3+ (NEGATIVE) 05/07/24 13:29 Urine Glucose (UA) Negative (NEGATIVE) 05/07/24 13:29 Urine Ketones Negative (NEGATIVE) 05/07/24 13:29 Urine Blood 4+ (NEGATIVE) 05/07/24 13:29 Urine Nitrite Negative (NEGATIVE) 05/07/24 13:29 Urine Bilirubin Negative (NEGATIVE) 05/07/24 13:29 Urine Urobilinogen 3+ (NORMAL) 05/07/24 13:29 Ur Leukocyte Esterase 2+ (NEGATIVE) 05/07/24 13:29 Urine RBC 3-5 /HPF (0-3) A 05/05/24 18:52 Urine WBC 3-5 /HPF (0-5) 05/05/24 18:52 Ur Squamous Epith Cells Moderate /HPF (NEGATIVE) 05/05/24 18:52 Urine Bacteria 1+ /HPF (NEGATIVE) 05/05/24 18:52 Urine Mucus Rare /HPF (NEGATIVE) 05/05/24 18:52 Ur Culture Indicated? 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: Status: Acute (3) Left wrist pain: Status: Acute (4) Dementia: Status: Chronic Qualifiers: Alzheimer's disease onset: early onset Dementia behavioral or psychological symptom: without behavioral, psychotic, or mood disturbance or anxiety Dementia severity: mild Dementia type: Alzheimer's Qualified Code(s): G30.0 - Alzheimer's disease with early onset; F02.A0 - Dementia in other diseases classified elsewhere, mild, without behavioral disturbance, psychotic disturbance, mood disturbance, and anxiety (5) Elevated liver enzymes: Status: Acute (6) Fall: Status: Acute Qualifiers: Encounter type: sequela Qualified Code(s): W19.XXXS - Unspecified fall, sequela (7) Constipation: Status: Chronic Qualifiers: Constipation type: slow transit constipation Qualified Code(s): K59.01 - Slow transit constipation
[2024-05-08] MEDS: PATIENT'S HOME MEDICATION (Cariprazine [Vraylar] 1.5 mg capsule) PO SCH (09:44)
[2024-05-08] MEDS: ALPRAZOLAM ODT PO PRN (13:45)
[2024-05-09] MEDS: ZANAFLEX PO PRN (01:15)
[2024-05-09 06:11] LABS: BASOPHILS % (AUTO) 0.6 % (0.2-1.0); EOSINOPHILS # (AUTO) 0.1 x10^3/uL (0.0-0.2); EOSINOPHILS % (AUTO) 1.8 % (0.9-2.9); HEMATOCRIT 27.8 % (36.0-47.0); HEMOGLOBIN 9.5 g/dL (12.0-16.0); LYMPHOCYTES # (AUTO) 0.6 X10^3/uL (1.3-2.9); MEAN CORPUSCULAR HEMOGLOBIN 30.1 pg (27.0-34.0); MEAN CORPUSCULAR HGB CONC 34.1 g/dL (33.0-35.0); MEAN CORPUSCULAR VOLUME 88.2 fL (80.0-100.0); MEAN PLATELET VOLUME 9.9 fL (7.4-11.0); MONOCYTES # (AUTO) 0.5 x10^3/uL (0.3-0.8); MONOCYTES % (AUTO) 10.4 % (0.0-13.0); NEUTROPHILS # (AUTO) 3.8 x10^3/uL (2.2-4.8); NEUTROPHILS % (AUTO) 76.2 % (42.0-75.0); PLATELET COUNT 179 X10^3/uL (150.0-450.0); RED BLOOD COUNT 3.15 X10^6/uL (3.5-5.4)
[2024-05-09 06:21] LABS: ALANINE AMINOTRANSFERASE 163 Units/L (12-78); ALBUMIN 2.2 g/dL (3.4-5.0); ALKALINE PHOSPHATASE 271 Units/L (46-116); ASPARTATE AMINO TRANSFERASE 110 Units/L (15-37); BLOOD UREA NITROGEN 10 mg/dL (7-18); CALCIUM 10.2 mg/dL (8.5-10.1); CARBON DIOXIDE 26.5 mmol/L (21-32); CHLORIDE 106 mmol/L (98-107); COR CA(FOR HYPOALB) 11.6 mg/dL (8.5-10.1); CREATININE 0.72 mg/dL (0.55-1.02); GLUCOSE 102 mg/dL (65-99); POTASSIUM 3.8 mmol/L (3.5-5.1); SODIUM 141 mmol/L (136-145); TOTAL PROTEIN 6.2 g/dL (6.4-8.2); eGFR NON BLACK RACES > 60 (>60)
[2024-05-09] MEDS ORDERED: ZOLOFT ONE (08:12)
--- NOTE | 2024-05-09 09:28 | US ---
EXAMINATION: ABDOMEN HISTORY: ELEVATED LIVER ENZYMES; . COMPARISON STUDY: None. TECHNIQUE: Real-time grayscale, color flow, duplex Doppler spectral analysis ultrasound of the abdomen. FINDINGS: The liver is enlarged measuring 20 cm longitudinal oblique dimension. The liver generally has a norm al echotexture. Normal venous waveforms within the main portal vein. The imaged hepatic veins are p atent on the color flow images. The IVC is patent. Details of the IVC are limited. The abdominal aorta scratch of the visualized ab dominal aorta tapers normally. Distal abdominal aorta obscured by patient body habitus. No pancreatic duct dilatation. Gallbladder is mildly distended. Gallbladder [place] measure 2.9 mm diameter. No pericholecystic flui d. Common bile duct measures 2.7 mm diameter. No intrahepatic bile duct dilatation. Right kidney 13.6 x 6 x 8 cm and has a renal resistive index of 0.75 which is elevated. No hydroneph rosis. Large simple appearing cyst measuring 8 cm upper pole right kidney. Left kidney has a normal echotexture measures 10.5 x 5.9 by 5.3 cm with a renal resistive index 0.7 w hich is elevated. Spleen measures 9.6 x 3.3 by 4 cm. No ascites. IMPRESSION: Hepatomegaly. The distal abdominal aorta is obscured by patient body habitus. Large cyst upper pole right kidney. Recommend further evaluation with CT of the abdomen without and with IV contrast. THIS IS AN ELECTRONICALLY VERIFIED FINAL REPORT 05/09/2024 9:25 AM - Electronically signed by Belle Haines MD
--- NOTE | 2024-05-09 09:37 | PCM.PROG ---
Progress Note Progress Note for Day of Date of Exam: 05/09/24 Subjective Subjective: Patient seen at bedside, no acute events overnight. She is doing better, awake & alert, answering questions. She states her appetite is better. Denies N/V/D or abdominal pain. Her left wrist is better, swelling and redness has improved. She did work with PT yesterday. CM working on rehab placement. MRI-brain was normal. Abdominal US report pending. Patient is admitted due to a fall, left wrist cellulitis, dehydration and generalized weakness. Labs/imaging reviewed: -WBC 5 HGb 9.5 Plt 179 K 3.8 Na 141 BUN/Cr 10/0.72 AST/ALT 110/163 AP 271 -MRI-brain: normal -Blood Cx (-) -CXR: neg for infection -Resp panel (-) Plan: Follow abdominal US results. Continue hydration. Continue Rocephin. Continue toradol prn. Continue tizanidine prn. Replace electrolytes prn. Continue home medications. Continue Xanax but decreased dose, take 2mg BID at home, will order 1m BID prn. PT/OT as tolerated. CM working on rehab placement. Monitor AM labs/imaging. Past Medical Family Social History Allergies: Allergies ciprofloxacin [From Cipro] Allergy (Verified 05/05/24 13:42) codeine Allergy (Verified 05/05/24 13:42) hydromorphone [From Dilaudid] Allergy (Verified 05/05/24 13:42) morphine Allergy (Verified 05/05/24 13:42) Vital Signs and I&O's Vital Signs: Vital Signs Temperature 97.1 F Temperature 98.3 F Pulse Rate [Right Brachial] 76 Pulse Rate [Right Brachial] 73 Respiratory Rate 19 Respiratory Rate 20 Blood Pressure [Right Arm] 125/69 Blood Pressure [Right Arm] 107/58 O2 Sat by Pulse Oximetry 94 O2 Sat by Pulse Oximetry 92 Intake and Output: Intake & Output 05/06/24 05/07/24 05/08/24 05/09/24 23:59 23:59 23:59 23:59 Intake Total 2420 / 2420 2373 / 2373 3496 / 3496 1066 / 1066 Balance 2420 / 2420 2373 / 2373 3496 / 3496 1066 / 1066 Physical Exam Oriented: Person and Place Eyes: Normal Throat: Normal Respiratory: Generalized and Diminished Cardiovascular: Normal Auscultation: Bowel Sounds: Normal Palpation: Normal Tenderness: Normal Skin: Normal Musculoskeletal: Left, Wrist, Hand, Tender (improved ) and Motor Deficit Psychiatric: Normal Mood Description: Calm Affect: Normal Speech Pattern: Clear and Appropriate Laboratory and Diagnostics 05/09/24 05:50 05/09/24 05:50 Labs: Laboratory WBC 5.0 X10^3/uL (3.6-10.0) 05/09/24 05:50 RBC 3.15 X10^6/uL (3.5-5.4) L 05/09/24 05:50 Hgb 9.5 g/dL (12.0-16.0) L 05/09/24 05:50 Hct 27.8 % (36.0-47.0) L 05/09/24 05:50 MCV 88.2 fL (80.0-100.0) 05/09/24 05:50 MCH 30.1 pg (27.0-34.0) 05/09/24 05:50 MCHC 34.1 g/dL (33.0-35.0) 05/09/24 05:50 RDW 13.0 % (11.6-16.5) 05/09/24 05:50 Plt Count 179 X10^3/uL (150.0-450.0) 05/09/24 05:50 MPV 9.9 fL (7.4-11.0) 05/09/24 05:50 Neut % (Auto) 76.2 % (42.0-75.0) H 05/09/24 05:50 Lymph % (Auto) 11.0 % (21.0-51.0) L 05/09/24 05:50 [place] % (Auto) 10.4 % (0.0-13.0) 05/09/24 05:50 Eos % (Auto) 1.8 % (0.9-2.9) 05/09/24 05:50 Baso % (Auto) 0.6 % (0.2-1.0) 05/09/24 05:50 Neut # (Auto) 3.8 x10^3/uL (2.2-4.8) 05/09/24 05:50 Lymph # (Auto) 0.6 X10^3/uL (1.3-2.9) L 05/09/24 05:50 [place] # (Auto) 0.5 x10^3/uL (0.3-0.8) 05/09/24 05:50 Eos # (Auto) 0.1 x10^3/uL (0.0-0.2) 05/09/24 05:50 Baso # (Auto) 0.0 X10^3/uL (0.0-0.1) 05/09/24 05:50 Absolute Nucleated RBC 0.0 /100WBC 05/09/24 05:50 Sodium 141 mmol/L (136-145) 05/09/24 05:50 Corrected Sodium TNP 05/09/24 05:50 Potassium 3.8 mmol/L (3.5-5.1) 05/09/24 05:50 Chloride 106 mmol/L (98-107) 05/09/24 05:50 Carbon Dioxide 26.5 mmol/L (21-32) 05/09/24 05:50 BUN 10 mg/dL (7-18) 05/09/24 05:50 Creatinine 0.72 mg/dL (0.55-1.02) 05/09/24 05:50 Est GFR (MDRD) Af Amer > 60 (>60) 05/09/24 05:50 Est GFR (MDRD) Non-Af > 60 (>60) 05/09/24 05:50 Glucose 102 mg/dL (65-99) H 05/09/24 05:50 Calcium 10.2 mg/dL (8.5-10.1) H 05/09/24 05:50 Corrected Calcium 11.6 mg/dL (8.5-10.1) H 05/09/24 05:50 Magnesium 2.0 mg/dL (2.0-2.9) 05/09/24 05:50 Total Bilirubin 0.40 mg/dL (0.2-1.0) 05/09/24 05:50 AST 110 Units/L (15-37) H 05/09/24 05:50 ALT 163 Units/L (12-78) H 05/09/24 05:50 Alkaline Phosphatase 271 Units/L (46-116) H 05/09/24 05:50 Ammonia < 10 umol/L (11-32) L 05/05/24 17:05 Creatine Kinase 304 Units/L (26-192) H 05/08/24 05:25 Total Protein 6.2 g/dL (6.4-8.2) L 05/09/24 05:50 Albumin 2.2 g/dL (3.4-5.0) L 05/09/24 05:50 Globulin 4.0 g/dL (2.5-4.5) 05/09/24 05:50 Albumin/Globulin Ratio 0.6 Ratio (1.1-2.1) L 05/09/24 05:50 TSH 3rd Generation 3.249 uIU/mL (0.358-3.74) 05/05/24 14:35 Specimen Type Clean catch urine 05/07/24 13:29 Urine Color Yellow (YELLOW) 05/07/24 13:29 Urine Appearance Hazy (CLEAR) 05/07/24 13:29 Urine pH 6.0 (5.0 - 8.0) 05/07/24 13:29 Ur Specific [place] 1.015 (1.000-1.030) 05/07/24 13:29 Urine Protein 3+ (NEGATIVE) 05/07/24 13:29 Urine Glucose (UA) Negative (NEGATIVE) 05/07/24 13:29 Urine Ketones Negative (NEGATIVE) 05/07/24 13:29 Urine Blood 4+ (NEGATIVE) 05/07/24 13:29 Urine Nitrite Negative (NEGATIVE) 05/07/24 13:29 Urine Bilirubin Negative (NEGATIVE) 05/07/24 13:29 Urine Urobilinogen 3+ (NORMAL) 05/07/24 13:29 Ur Leukocyte Esterase 2+ (NEGATIVE) 05/07/24 13:29 Urine RBC 3-5 /HPF (0-3) A 05/05/24 18:52 Urine WBC 3-5 /HPF (0-5) 05/05/24 18:52 Ur Squamous Epith Cells Moderate /HPF (NEGATIVE) 05/05/24 18:52 Urine Bacteria 1+ /HPF (NEGATIVE) 05/05/24 18:52 Urine Mucus Rare /HPF (NEGATIVE) 05/05/24 18:52 Ur Culture Indicated? 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: Status: Acute (3) Left wrist pain: Status: Acute (4) Dementia: Status: Chronic Qualifiers: Alzheimer's disease onset: early onset Dementia behavioral or psychological symptom: without behavioral, psychotic, or mood disturbance or anxiety Dementia severity: mild Dementia type: Alzheimer's Qualified Code(s): G30.0 - Alzheimer's disease with early onset; F02.A0 - Dementia in other diseases classified elsewhere, mild, without behavioral disturbance, psychotic disturbance, mood disturbance, and anxiety (5) Elevated liver enzymes: Status: Acute (6) Fall: Status: Acute Qualifiers: Encounter type: sequela Qualified Code(s): W19.XXXS - Unspecified fall, sequela (7) Constipation: Status: Chronic Qualifiers: Constipation type: slow transit constipation Qualified Code(s): K59.01 - Slow transit constipation
--- NOTE | 2024-05-09 13:01 | CT ---
EXAM: ABDOMEN W&W/O CON HISTORY: Ultrasound follow up, ABdominal pain; INSURANCE APPROVED ONLY ABD CT COMPARISON: Abdominal ultrasound 05/08/2024 TECHNIQUE: Multiple CT axial images of the abdomen were obtained without and with IV contrast. Coronal and sagit joy images were reconstructed. Dose reduction techniques included Automated Exposure Control (AEC) an d adjustment of mA and kV. FINDINGS: Without contrast: Minimal athero sclerotic calcifications in the aorta. No abnormal calcifications a re present in the kidneys, ureters, or urinary bladder. With contrast: The aorta has a normal caliber with no aneurysm. Common iliac arteries are patent. Heart size normal. Linear areas in the lung bases are probably small areas of atelectasis or focal s carring. No pleural effusion. Low-density nodule in the dome of the liver measures 11 mm. This could be a cyst or hemangioma. Hep atomegaly is present measuring over 22 cm. The gallbladder has no edema around it. The spleen is normal in size and shape. The adrenal glands are normal. The pancreas is normal. Low-density right renal mass does not enhance after contrast consistent with a cyst. It measures 8.2 cm. Renal enhancement is uniform and symmetric with no solid mass. There is no hydronephrosis or signific ant perirenal edema. Upper ureters not dilated. Pelvis was not imaged, but the urinary bladder protrudes into the abdomen to the level of the umbilic us. This suggests that the bladder might be dilated. Small hiatal hernia measures < 3 cm. The bowel is not dilated. There is no wall thickening in the nikky wel or edema around the bowel. Probable normal appendix. Degenerative spondylitic changes are present in the spine. Thoracic fixation hardware is present pos teriorly in the lower lumbar spine. IMPRESSION: 1. No evidence for aortic aneurysm 2. (8.2 cm) right renal cyst 3. Hepatomegaly with probable cyst or hemangioma 4. Possibly dilated urinary bladder 5. Small hiatal hernia THIS IS AN ELECTRONICALLY VERIFIED FINAL REPORT 05/09/2024 12:38 PM - Electronically signed by Hector Ward MD
[2024-05-09] MEDS: OMNIPAQUE 350 mg/mL 100 mL BTL 100 ML ONE (13:24)
[2024-05-10 06:29] LABS: BASOPHILS # (AUTO) 0.1 X10^3/uL (0.0-0.1); BASOPHILS % (AUTO) 1.3 % (0.2-1.0); EOSINOPHILS # (AUTO) 0.1 x10^3/uL (0.0-0.2); EOSINOPHILS % (AUTO) 1.8 % (0.9-2.9); HEMOGLOBIN 10.7 g/dL (12.0-16.0); LYMPHOCYTES # (AUTO) 0.7 X10^3/uL (1.3-2.9); LYMPHOCYTES % (AUTO) 13.5 % (21.0-51.0); MEAN CORPUSCULAR HEMOGLOBIN 30.4 pg (27.0-34.0); MEAN CORPUSCULAR HGB CONC 34.5 g/dL (33.0-35.0); MEAN CORPUSCULAR VOLUME 88.1 fL (80.0-100.0); MONOCYTES # (AUTO) 0.5 x10^3/uL (0.3-0.8); MONOCYTES % (AUTO) 9.8 % (0.0-13.0); NEUTROPHILS % (AUTO) 73.6 % (42.0-75.0); PLATELET COUNT 232 X10^3/uL (150.0-450.0); RED BLOOD COUNT 3.52 X10^6/uL (3.5-5.4); RED CELL DISTRIBUTION WIDTH 12.4 % (11.6-16.5); WHITE BLOOD COUNT 5.4 X10^3/uL (3.6-10.0)
[2024-05-10 06:36] LABS: ALANINE AMINOTRANSFERASE 119 Units/L (12-78); ALBUMIN 2.4 g/dL (3.4-5.0); ALKALINE PHOSPHATASE 252 Units/L (46-116); ASPARTATE AMINO TRANSFERASE 41 Units/L (15-37); BLOOD UREA NITROGEN 6 mg/dL (7-18); CALCIUM 10.5 mg/dL (8.5-10.1); CARBON DIOXIDE 27.5 mmol/L (21-32); CHLORIDE 105 mmol/L (98-107); COR CA(FOR HYPOALB) 11.8 mg/dL (8.5-10.1); CREATININE 0.68 mg/dL (0.55-1.02); GLUCOSE 92 mg/dL (65-99); POTASSIUM 3.5 mmol/L (3.5-5.1); SODIUM 142 mmol/L (136-145); TOTAL PROTEIN 6.5 g/dL (6.4-8.2); eGFR NON BLACK RACES > 60 (>60)
[2024-05-10] MEDS ORDERED: ZOLOFT ONE (07:51)
[2024-05-10] MEDS: K-DUR TAB 20 MEQ PO SCH (08:46)
[2024-05-10] MEDS: MAG-OX TAB PO SCH (08:47)
[2024-05-10] MEDS ORDERED: CONSULT PHARMACY - POTASSIUM & MAGNESIUM XX SCH (09:00)
--- NOTE | 2024-05-10 10:57 | PCM.PROG ---
Progress Note Progress Note for Day of Date of Exam: 05/10/24 Subjective Subjective: Patient resting in bed this morning. She reports some improvement. She is awake & alert, answering questions, tolerating po intake. She does report some abdominal bloating and left lower extremity swelling. Patient is admitted due to a fall, left wrist cellulitis, dehydration and generalized weakness. Labs/imaging reviewed: -WBC 5.4, hemoglobin 10.7, platelets 232, sodium 142, potassium 3.5, creatinine 0.68, glucose 92, -CT abdomen pelvis: Hepatomegaly, right upper pole renal cyst 8.2 cm. -MRI-brain: normal -Blood Cx (-) -CXR: neg for infection -Resp panel (-) Plan: Will order a KUB for abdominal distention and venous duplex for right lower extremity to rule out DVT. Continue hydration. Continue Rocephin. Continue toradol prn. Continue tizanidine prn. Replace electrolytes prn. Continue home medications. Continue Xanax but decreased dose, takes 2mg BID at home, she is receiving here 1m BID prn. PT/OT as tolerated. Patient will be going home on discharge. She will need referral to urology outpatient for renal cyst. Monitor AM labs/imaging. Past Medical Family Social History Allergies: Allergies ciprofloxacin [From Cipro] Allergy (Verified 05/05/24 13:42) codeine Allergy (Verified 05/05/24 13:42) hydromorphone [From Dilaudid] Allergy (Verified 05/05/24 13:42) morphine Allergy (Verified 05/05/24 13:42) Review of Systems ROS changes noted: see HPI Vital Signs and I&O's Vital Signs: Vital Signs Temperature 97.3 F Temperature 98.5 F Pulse Rate [Right Brachial] 81 Pulse Rate [Right Brachial] 77 Respiratory Rate 20 Respiratory Rate 21 Blood Pressure [Right Arm] 131/79 Blood Pressure [Right Arm] 121/65 O2 Sat by Pulse Oximetry 94 O2 Sat by Pulse Oximetry 97 Intake and Output: Intake & Output 05/07/24 05/08/24 05/09/24 05/10/24 23:59 23:59 23:59 23:59 Intake Total 2373 / 2373 3496 / 3496 2782 / 2782 1096 / 1096 Balance 2373 / 2373 3496 / 3496 2782 / 2782 1096 / 1096 Physical Exam Oriented: Person and Place Eyes: Normal Throat: Normal Respiratory: Generalized and Diminished Cardiovascular: Normal Auscultation: Bowel Sounds: Normal Tenderness: Normal Skin: Normal Musculoskeletal: Left, Wrist, Hand, Tender (improved ) and Motor Deficit Psychiatric: Normal Mood Description: Calm Affect: Normal Speech Pattern: Clear Laboratory and Diagnostics 05/10/24 05:25 05/10/24 05:25 Labs: 05/07/24 11:38 Blood Blood Culture - Preliminary 05/07/24 11:34 Blood Blood Culture - Preliminary Laboratory WBC 5.4 X10^3/uL (3.6-10.0) 05/10/24 05:25 RBC 3.52 X10^6/uL (3.5-5.4) 05/10/24 05:25 Hgb 10.7 g/dL (12.0-16.0) L 05/10/24 05:25 Hct 31.0 % (36.0-47.0) L 05/10/24 05:25 MCV 88.1 fL (80.0-100.0) 05/10/24 05:25 MCH 30.4 pg (27.0-34.0) 05/10/24 05:25 MCHC 34.5 g/dL (33.0-35.0) 05/10/24 05:25 RDW 12.4 % (11.6-16.5) 05/10/24 05:25 Plt Count 232 X10^3/uL (150.0-450.0) 05/10/24 05:25 MPV 10.0 fL (7.4-11.0) 05/10/24 05:25 Neut % (Auto) 73.6 % (42.0-75.0) 05/10/24 05:25 Lymph % (Auto) 13.5 % (21.0-51.0) L 05/10/24 05:25 Garza % (Auto) 9.8 % (0.0-13.0) 05/10/24 05:25 Eos % (Auto) 1.8 % (0.9-2.9) 05/10/24 05:25 Baso % (Auto) 1.3 % (0.2-1.0) H 05/10/24 05:25 Neut # (Auto) 4.0 x10^3/uL (2.2-4.8) 05/10/24 05:25 Lymph # (Auto) 0.7 X10^3/uL (1.3-2.9) L 05/10/24 05:25 [place] # (Auto) 0.5 x10^3/uL (0.3-0.8) 05/10/24 05:25 Eos # (Auto) 0.1 x10^3/uL (0.0-0.2) 05/10/24 05:25 Baso # (Auto) 0.1 X10^3/uL (0.0-0.1) 05/10/24 05:25 Absolute Nucleated RBC 0.1 /100WBC 05/10/24 05:25 Sodium 142 mmol/L (136-145) 05/10/24 05:25 Corrected Sodium TNP 05/10/24 05:25 Potassium 3.5 mmol/L (3.5-5.1) 05/10/24 05:25 Chloride 105 mmol/L (98-107) 05/10/24 05:25 Carbon Dioxide 27.5 mmol/L (21-32) 05/10/24 05:25 BUN 6 mg/dL (7-18) L 05/10/24 05:25 Creatinine 0.68 mg/dL (0.55-1.02) 05/10/24 05:25 Est GFR (MDRD) Af Amer > 60 (>60) 05/10/24 05:25 Est GFR (MDRD) Non-Af > 60 (>60) 05/10/24 05:25 Glucose 92 mg/dL (65-99) 05/10/24 05:25 Calcium 10.5 mg/dL (8.5-10.1) H 05/10/24 05:25 Corrected Calcium 11.8 mg/dL (8.5-10.1) H 05/10/24 05:25 Magnesium 2.0 mg/dL (2.0-2.9) 05/10/24 05:25 Total Bilirubin 0.50 mg/dL (0.2-1.0) 05/10/24 05:25 AST 41 Units/L (15-37) H 05/10/24 05:25 ALT 119 Units/L (12-78) H 05/10/24 05:25 Alkaline Phosphatase 252 Units/L (46-116) H 05/10/24 05:25 Ammonia < 10 umol/L (11-32) L 05/05/24 17:05 Creatine Kinase 304 Units/L (26-192) H 05/08/24 05:25 Total Protein 6.5 g/dL (6.4-8.2) 05/10/24 05:25 Albumin 2.4 g/dL (3.4-5.0) L 05/10/24 05:25 Globulin 4.1 g/dL (2.5-4.5) 05/10/24 05:25 Albumin/Globulin Ratio 0.6 Ratio (1.1-2.1) L 05/10/24 05:25 TSH 3rd Generation 3.249 uIU/mL (0.358-3.74) 05/05/24 14:35 Specimen Type Clean catch urine 05/07/24 13:29 Urine Color Yellow (YELLOW) 05/07/24 13:29 Urine Appearance Hazy (CLEAR) 05/07/24 13:29 Urine pH 6.0 (5.0 - 8.0) 05/07/24 13:29 Ur Specific [place] 1.015 (1.000-1.030) 05/07/24 13:29 Urine Protein 3+ (NEGATIVE) 05/07/24 13:29 Urine Glucose (UA) Negative (NEGATIVE) 05/07/24 13:29 Urine Ketones Negative (NEGATIVE) 05/07/24 13:29 Urine Blood 4+ (NEGATIVE) 05/07/24 13:29 Urine Nitrite Negative (NEGATIVE) 05/07/24 13:29 Urine Bilirubin Negative (NEGATIVE) 05/07/24 13:29 Urine Urobilinogen 3+ (NORMAL) 05/07/24 13:29 Ur Leukocyte Esterase 2+ (NEGATIVE) 05/07/24 13:29 Urine RBC 3-5 /HPF (0-3) A 05/05/24 18:52 Urine WBC 3-5 /HPF (0-5) 05/05/24 18:52 Ur Squamous Epith Cells Moderate /HPF (NEGATIVE) 05/05/24 18:52 Urine Bacteria 1+ /HPF (NEGATIVE) 05/05/24 18:52 Urine Mucus Rare /HPF (NEGATIVE) 05/05/24 18:52 Ur Culture Indicated? 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: Status: Acute (3) Left wrist pain: Status: Acute (4) Dementia: Status: Chronic Qualifiers: Alzheimer's disease onset: early onset Dementia behavioral or psychological symptom: without behavioral, psychotic, or mood disturbance or anxiety Dementia severity: mild Dementia type: Alzheimer's Qualified Code(s): G30.0 - Alzheimer's disease with early onset; F02.A0 - Dementia in other diseases classified elsewhere, mild, without behavioral disturbance, psychotic disturbance, mood disturbance, and anxiety (5) Elevated liver enzymes: Status: Acute (6) Fall: Status: Acute Qualifiers: Encounter type: sequela Qualified Code(s): W19.XXXS - Unspecified fall, sequela (7) Constipation: Status: Chronic Qualifiers: Constipation type: slow transit constipation Qualified Code(s): K59.01 - Slow transit constipation
[2024-05-10] MEDS: NS 1,000 ML IV 1,000 ML IV SCH (13:10)
--- NOTE | 2024-05-10 14:31 | VAS ---
EXAM: LOWER EXT VENOUS, UNILATERAL HISTORY: Swelling to right lower extremity; SWELLING TO RLE COMPARISON: None available. TECHNIQUE: Multiple palomares scale and color flow Doppler images of the deep venous system were obtained of the righ t lower extremity. FINDINGS: The deep venous system of the right lower extremity was evaluated from the level of the common femora l vein through the popliteal vein. Normal color flow and augmentation can be observed. In addition, n ormal compression is seen throughout the deep venous system. IMPRESSION: Negative for DVT. THIS IS AN ELECTRONICALLY VERIFIED FINAL REPORT 05/10/2024 2:27 PM - Electronically signed by Mike Quevedo MD
[2024-05-11 06:40] LABS: BASOPHILS # (AUTO) 0.1 X10^3/uL (0.0-0.1); BASOPHILS % (AUTO) 1.2 % (0.2-1.0); EOSINOPHILS # (AUTO) 0.2 x10^3/uL (0.0-0.2); EOSINOPHILS % (AUTO) 3.8 % (0.9-2.9); HEMATOCRIT 29.4 % (36.0-47.0); HEMOGLOBIN 10.1 g/dL (12.0-16.0); LYMPHOCYTES # (AUTO) 0.8 X10^3/uL (1.3-2.9); LYMPHOCYTES % (AUTO) 14.9 % (21.0-51.0); MEAN CORPUSCULAR HEMOGLOBIN 30.3 pg (27.0-34.0); MEAN CORPUSCULAR HGB CONC 34.5 g/dL (33.0-35.0); MEAN PLATELET VOLUME 9.5 fL (7.4-11.0); MONOCYTES # (AUTO) 0.5 x10^3/uL (0.3-0.8); MONOCYTES % (AUTO) 10.2 % (0.0-13.0); NEUTROPHILS # (AUTO) 3.5 x10^3/uL (2.2-4.8); NEUTROPHILS % (AUTO) 69.9 % (42.0-75.0); PLATELET COUNT 245 X10^3/uL (150.0-450.0); RED BLOOD COUNT 3.34 X10^6/uL (3.5-5.4); RED CELL DISTRIBUTION WIDTH 12.5 % (11.6-16.5)
[2024-05-11 06:59] LABS: ALANINE AMINOTRANSFERASE 83 Units/L (12-78); ALBUMIN 2.4 g/dL (3.4-5.0); ALKALINE PHOSPHATASE 205 Units/L (46-116); ASPARTATE AMINO TRANSFERASE 22 Units/L (15-37); BLOOD UREA NITROGEN 7 mg/dL (7-18); CALCIUM 10.5 mg/dL (8.5-10.1); CARBON DIOXIDE 29.5 mmol/L (21-32); CHLORIDE 107 mmol/L (98-107); COR CA(FOR HYPOALB) 11.8 mg/dL (8.5-10.1); CREATININE 0.67 mg/dL (0.55-1.02); GLUCOSE 98 mg/dL (65-99); POTASSIUM 3.5 mmol/L (3.5-5.1); SODIUM 143 mmol/L (136-145); TOTAL PROTEIN 6.2 g/dL (6.4-8.2); eGFR NON BLACK RACES > 60 (>60)
--- NOTE | 2024-05-11 07:02 | RAD ---
EXAM: KUB HISTORY: Abdominal distention COMPARISON: None FINDINGS: Abdominal gas pattern is nonspecific and nonobstructive. No abnormal masses or abnormal calcificat ions are identified. There is large rounded midline abdominopelvic mass present. A 2nd rounded dens ities projected over this large density. This could be entirely represent a distended bladder howeve r the possibility of an additional soft tissue mass and a mildly distended bladder is possible. CT a bdomen pelvis with contrast is recommended for further evaluation. IMPRESSION: Nonspecific bowel gas pattern Large midline abdominopelvic mass which could represent distended bladder or other pelvic mass. CT a bdomen pelvis with contrast is recommended for further evaluation. THIS IS AN ELECTRONICALLY VERIFIED FINAL REPORT 05/11/2024 6:58 AM - Electronically signed by Titus Keller MD
[2024-05-11 07:58] VITALS: PULSE 70; RESP 18
[2024-05-11] MEDS ORDERED: CONSULT PHARMACY - POTASSIUM & MAGNESIUM XX SCH (08:00)
[2024-05-11] MEDS: K-DUR TAB 20 MEQ PO SCH (09:06)
[2024-05-11] MEDS ORDERED: ZOLOFT ONE (09:15)
[2024-05-11 14:21] VITALS: BP 121/67; TEMP 97.9; O2SAT 95
--- NOTE | 2024-05-12 11:55 | W.DIS.FURT ---
Summary of Discharge Discharge Summary of Date Date of Exam: 05/11/24 Admission Date Date of Admission: 05/05/24 Admission Diagnosis Patient Problems (Updated 05/08/24 @ 09:32 by Amanda Snow MD) Adult failure to thrive (Acute) R62.7 Fall (Acute) W19.XXXA Dementia (Chronic) F03.90 Hospital Course: Patient is a 63-year-old female admitted for fall, left wrist cellulitis, dehydration and generalized weakness. Her hospital treatment course included:IVF, Rocephin, toradol prn, tizanidine prn. Electrolytes repleted per protocol. Continue Xanax but decreased dose, takes 2mg BID at home, she received 1mg BID in the hospital. PT/OT. Patient responded well to treatments, symptoms significantly improved. Her strength improved significantly. She was discharged in stable condition. rx keflex. She will need follow-up with urology outpatient for renal cyst. Instructed to follow-up with PCP in 1 week. Labs/imaging reviewed: -CT abdomen pelvis: Hepatomegaly, right upper pole renal cyst 8.2 cm. Vital Signs: Vital Signs (72 hours) 05/08/24 12:00 05/08/24 16:00 05/08/24 20:00 Temperature 97.9 F 97.9 F 98.2 F Pulse Rate [Right Brachial] 71 76 81 Respiratory Rate 18 18 16 Blood Pressure [Left Arm] Blood Pressure [Right Arm] 116/62 117/68 123/59 O2 Sat by Pulse Oximetry 93 L 93 L 98 Oxygen Delivery Method Room Air Room Air 05/08/24 19:00 05/09/24 00:00 05/09/24 04:00 Temperature 98.4 F 98.3 F Pulse Rate [Right Brachial] 80 73 Respiratory Rate 18 20 Blood Pressure [Left Arm] Blood Pressure [Right Arm] 112/62 107/58 O2 Sat by Pulse Oximetry 97 92 L Oxygen Delivery Method Room Air Room Air 05/09/24 08:00 05/09/24 09:14 05/09/24 12:00 Temperature 97.1 F L 97.8 F Pulse Rate [Right Brachial] 76 78 Respiratory Rate 19 19 Blood Pressure [Left Arm] Blood Pressure [Right Arm] 125/69 125/67 O2 Sat by Pulse Oximetry 94 L 95 Oxygen Delivery Method Room Air Room Air 05/09/24 16:00 05/09/24 19:00 05/09/24 20:00 Temperature 98.1 F 98.7 F Pulse Rate [Right Brachial] 74 77 Respiratory Rate 20 18 Blood Pressure [Left Arm] Blood Pressure [Right Arm] 133/83 137/80 O2 Sat by Pulse Oximetry 98 98 Oxygen Delivery Method Room Air Room Air Room Air 05/10/24 00:00 05/10/24 04:00 05/10/24 08:00 Temperature 98.0 F 98.5 F 97.3 F L Pulse Rate [Right Brachial] 87 77 81 Respiratory Rate 19 21 20 Blood Pressure [Left Arm] Blood Pressure [Right Arm] 123/60 121/65 131/79 O2 Sat by Pulse Oximetry 95 97 94 L Oxygen Delivery Method Room Air Room Air Room Air 05/10/24 07:00 05/10/24 12:00 05/10/24 15:36 Temperature 97.7 F 97.9 F Pulse Rate [Right Brachial] 93 H 77 Respiratory Rate 18 19 Blood Pressure [Left Arm] Blood Pressure [Right Arm] 136/80 120/67 O2 Sat by Pulse Oximetry 95 96 Oxygen Delivery Method Room Air Room Air Room Air 05/10/24 20:00 05/10/24 19:00 05/11/24 00:00 Temperature 98.1 F 97.6 F Pulse Rate [Right Brachial] 82 80 Respiratory Rate 19 19 Blood Pressure [Left Arm] Blood Pressure [Right Arm] 126/60 123/61 O2 Sat by Pulse Oximetry 96 94 L Oxygen Delivery Method Room Air Room Air Room Air 05/11/24 04:00 05/11/24 07:57 05/11/24 07:00 Temperature 97.9 F 98.1 F Pulse Rate [Right Brachial] 79 70 Respiratory Rate 19 18 Blood Pressure [Left Arm] 112/64 Blood Pressure [Right Arm] 125/64 O2 Sat by Pulse Oximetry 95 93 L Oxygen Delivery Method Room Air Room Air Room Air Labs: Laboratory Last Values WBC 5.0 X10^3/uL (3.6-10.0) 05/11/24 05:30 RBC 3.34 X10^6/uL (3.5-5.4) L 05/11/24 05:30 Hgb 10.1 g/dL (12.0-16.0) L 05/11/24 05:30 Hct 29.4 % (36.0-47.0) L 05/11/24 05:30 MCV 88.0 fL (80.0-100.0) 05/11/24 05:30 MCH 30.3 pg (27.0-34.0) 05/11/24 05:30 MCHC 34.5 g/dL (33.0-35.0) 05/11/24 05:30 RDW 12.5 % (11.6-16.5) 05/11/24 05:30 Plt Count 245 X10^3/uL (150.0-450.0) 05/11/24 05:30 MPV 9.5 fL (7.4-11.0) 05/11/24 05:30 Neut % (Auto) 69.9 % (42.0-75.0) 05/11/24 05:30 Lymph % (Auto) 14.9 % (21.0-51.0) L 05/11/24 05:30 [place] % (Auto) 10.2 % (0.0-13.0) 05/11/24 05:30 Eos % (Auto) 3.8 % (0.9-2.9) H 05/11/24 05:30 Baso % (Auto) 1.2 % (0.2-1.0) H 05/11/24 05:30 Neut # (Auto) 3.5 x10^3/uL (2.2-4.8) 05/11/24 05:30 Lymph # (Auto) 0.8 X10^3/uL (1.3-2.9) L 05/11/24 05:30 [place] # (Auto) 0.5 x10^3/uL (0.3-0.8) 05/11/24 05:30 Eos # (Auto) 0.2 x10^3/uL (0.0-0.2) 05/11/24 05:30 Baso # (Auto) 0.1 X10^3/uL (0.0-0.1) 05/11/24 05:30 Absolute Nucleated RBC 0.1 /100WBC 05/11/24 05:30 Sodium 143 mmol/L (136-145) 05/11/24 05:30 Corrected Sodium TNP 05/11/24 05:30 Potassium 3.5 mmol/L (3.5-5.1) 05/11/24 05:30 Chloride 107 mmol/L (98-107) 05/11/24 05:30 Carbon Dioxide 29.5 mmol/L (21-32) 05/11/24 05:30 BUN 7 mg/dL (7-18) 05/11/24 05:30 Creatinine 0.67 mg/dL (0.55-1.02) 05/11/24 05:30 Est GFR (MDRD) Af Amer > 60 (>60) 05/11/24 05:30 Est GFR (MDRD) Non-Af > 60 (>60) 05/11/24 05:30 Glucose 98 mg/dL (65-99) 05/11/24 05:30 Calcium 10.5 mg/dL (8.5-10.1) H 05/11/24 05:30 Corrected Calcium 11.8 mg/dL (8.5-10.1) H 05/11/24 05:30 Magnesium 2.1 mg/dL (2.0-2.9) 05/11/24 05:30 Total Bilirubin 0.40 mg/dL (0.2-1.0) 05/11/24 05:30 AST 22 Units/L (15-37) 05/11/24 05:30 ALT 83 Units/L (12-78) H 05/11/24 05:30 Alkaline Phosphatase 205 Units/L (46-116) H 05/11/24 05:30 Ammonia < 10 umol/L (11-32) L 05/05/24 17:05 Creatine Kinase 304 Units/L (26-192) H 05/08/24 05:25 Total Protein 6.2 g/dL (6.4-8.2) L 05/11/24 05:30 Albumin 2.4 g/dL (3.4-5.0) L 05/11/24 05:30 Globulin 3.8 g/dL (2.5-4.5) 05/11/24 05:30 Albumin/Globulin Ratio 0.6 Ratio (1.1-2.1) L 05/11/24 05:30 TSH 3rd Generation 3.249 uIU/mL (0.358-3.74) 05/05/24 14:35 Specimen Type Clean catch urine 05/07/24 13:29 Urine Color Yellow (YELLOW) 05/07/24 13:29 Urine Appearance Hazy (CLEAR) 05/07/24 13: Urine pH 6.0 (5.0 - 8.0) 05/07/24 13: Ur Specific [place] 1.015 (1.000-1.030) 05/07/24 13:29 Urine Protein 3+ (NEGATIVE) 05/07/24 13: Urine Glucose (UA) Negative (NEGATIVE) 05/07/24 13: Urine Ketones Negative (NEGATIVE) 05/07/24 13: Urine Blood 4+ (NEGATIVE) 05/07/24 13: Urine Nitrite Negative (NEGATIVE) 05/07/24 13: Urine Bilirubin Negative (NEGATIVE) 05/07/24 13: Urine Urobilinogen 3+ (NORMAL) 05/07/24 13:29 Ur Leukocyte Esterase 2+ (NEGATIVE) 05/07/24 13:29 Urine RBC 3-5 /HPF (0-3) A 05/05/24 18:52 Urine WBC 3-5 /HPF (0-5) 05/05/24 18:52 Ur Squamous Epith Cells Moderate /HPF (NEGATIVE) 05/05/24 18:52 Urine Bacteria 1+ /HPF (NEGATIVE) 05/05/24 18:52 Urine Mucus Rare /HPF (NEGATIVE) 05/05/24 18:52 Ur Culture Indicated? 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 Pt is to keep follow up appointment as instructed and take medications as ordered. Discharge Medications Discharge Medications: ciprofloxacin [From Cipro] Allergy (Verified 05/05/24 13:42) codeine Allergy (Verified 05/05/24 13:42) hydromorphone [From Dilaudid] Allergy (Verified 05/05/24 13:42) morphine Allergy (Verified 05/05/24 13:42) CONTINUE taking the following medications gabapentin 300 mg capsule 300 mg PO TID lumbar radiculopathy 05/05/24 [History] ibandronate 150 mg tablet 150 mg PO QMONTH 05/05/24 [History] vibegron 75 mg tablet (Gemtesa) 75 mg PO QPM 05/05/24 [History] Discharge Plan Discharge Plan Hospital Course: Patient is a 63-year-old female admitted for fall, left wrist cellulitis, dehydration and generalized weakness. Her hospital treatment course include d:IVF, Rocephin, toradol prn, tizanidine prn. Electrolytes repleted per protocol. Continue Xanax but decreased dose, takes 2mg BID at home, she received 1mg BID in the hospital. PT/OT. Patient responded well to treatments, symptoms significantly improved. Her strength improved significantly. She was discharged in stable condition. rx keflex. She will need follow-up with urology outpatient for renal cyst. Instructed to follow-up with PCP in 1 week. Labs/imaging reviewed: -CT abdomen pelvis: Hepatomegaly, right upper pole renal cyst 8.2 cm. Patient Disposition: HOME HEALTH SERVICE Condition: Stable Health Concerns: Post Hospitalization: new medications and changes needed to prevent readmission or further decline. Pt educated and given instructions on all concerns. Care Plan Goals: Problem: Activity Intolerance Goal: Increased tolerance to activity Instructions: Follow provided instructions. Follow up with primary physician as directed. Contact primary care physician or report to the closest Emergency Room if condition worsens. Plan of Treatment: Continue with present treatment and follow up plan. Pt is to keep follow up appointment as instructed and take medications as ordered. Prescriptions: New cephalexin 500 mg capsule 500 mg PO BID 7 Days Qty: 14 0RF Continued ibandronate 150 mg tablet 150 mg PO QMONTH Gemtesa 75 mg tablet 75 mg PO QPM gabapentin 300 mg capsule 300 mg PO TID MDD 2 tizanidine 4 mg tablet 4 mg PO QPM lovastatin 40 mg tablet 40 mg PO QDAY sertraline 100 mg tablet 100 mg PO QDAY levothyroxine 88 mcg tablet 88 mcg PO QDAY cyanocobalamin (vitamin B-12) 1,000 mcg/mL solution 1,000 mcg IM QMONTH alprazolam 2 mg tablet 2 mg PO TID PRN Vraylar 1.5 mg capsule 1.5 mg PO QDAY Follow ups/Referrals Follow ups/Referrals: [facility] [Other] (Bedside commode ) [facility] [STAFF PHYSICIAN] - Alcides Briones [Primary Care Provider] - 05/16/24 10:45 am NILAM FERRO [CONSULTING PHYSICIAN] - 05/17/24 1:45 pm Instructions Instructions: Cellulitis, Adult, [id number], Dementia Caregiver Guide, Dementia, Malnutrition, Adult, [id number] Stand Alone Forms: Find Help Web Site, [facility], Post Hospital Follow Up Care
== END 2024-05-11 11:40 | disposition home health service (06) ==
LOC: ER 12:57 → MED/SURG 12:57
PROVIDERS: ADMIT Family Medicine; ATTEND Internal Medicine
DX: L03.114 Cellulitis of left upper limb; M25.532 Pain in left wrist; M54.59 Other low back pain; F02.A0 Dementia in other diseases classified elsewhere, mild, without behavioral disturbance, psychotic disturbance, mood disturbance, and anxiety; R41.82 Altered mental status, unspecified; F41.8 Other specified anxiety disorders; K44.9 Diaphragmatic hernia without obstruction or gangrene; M54.2 Cervicalgia; K59.01 Slow transit constipation; E03.8 Other specified hypothyroidism; E86.0 Dehydration; G24.3 Spasmodic torticollis; M79.602 Pain in left arm; R60.0 Localized edema; Z03.818 Encounter for observation for suspected exposure to other biological agents ruled out; R74.8 Abnormal levels of other serum enzymes; G30.0 Alzheimer's disease with early onset; E78.5 Hyperlipidemia, unspecified; Y92.89 Other specified places as the place of occurrence of the external cause; N28.1 Cyst of kidney, acquired; R10.84 Generalized abdominal pain; R26.89 Other abnormalities of gait and mobility; M79.642 Pain in left hand; W18.39XA Other fall on same level, initial encounter; R53.1 Weakness; Z73.6 Limitation of activities due to disability; R62.7 Adult failure to thrive